=== PATIENT | male | born 1960 | race Caucasian/White ===

== ENCOUNTER 2017-08-25 10:00 | Observation (INO) | payer MEDICARE ==
[2017-08-25 10:31] LABS: #Basophils 0.1 thou/uL (0.0-0.2); #Eosinphils 0.4 thou/uL (0.0-0.7); #Lymphocytes 3.7 thou/uL (1.20-3.40); #Monocytes 1.1 thou/uL (0.11-0.59); #Neutrophils 6.5 thou/uL (1.40-6.50); %Basophils 0.7 % (0.0-1.0); %Eosinophils 3.2 % (0.0-10.0); %Lymphocytes 31.7 % (21.0-51.0); %Monocytes 8.9 % (0.0-10.0); Hematocrit 53.5 % (42.0-52.0); Red Blood Cell (RBC) Count 6.12 mill/uL (4.70-6.10); White Blood Cell (WBC) Count 11.8 thou/uL (4.8-10.8)
[2017-08-25] MEDS ORDERED: Ondansetron HCl/PF 4 MG/2 ML Vial ONE (10:44)
[2017-08-25 10:55] LABS: ALT (SGPT) 36 U/L (8-55); AST (SGOT) 30 U/L (5-34); Alkaline Phosphatase 122 U/L (40-150); Anion Gap 15 mmol/L (10-20); BUN (Urea Nitrogen) 17 mg/dL (8.4-25.7); Bilirubin, Total 0.5 mg/dL (0.2-1.2); CK (CPK) 79 U/L (30-200); Calc. Creatinine Clearance 0 mL/min (70-130); Calcium 9.6 mg/dL (7.8-10.44); Carbon Dioxide 26 mmol/L (22-29); Chloride 100 mmol/L (98-107); Estimated GFR-MDRD 52; Globulin 3.6 g/dL (2.4-3.5); Lipase 73 U/L (8-78); Protein, Total 7.4 g/dL (6.0-8.3)
[2017-08-25 10:58] LABS: Troponin I Less than 0.010 ng/mL (< 0.028)
--- NOTE | 2017-08-25 11:12 | RAD ---
SINGLE VIEW OF THE CHEST: COMPARISON: 10/14/16. HISTORY: Chest pain. FINDINGS: A single view of the chest shows a normal-size cardiothymic silhouette. The patient is status post sternotomy. There is no evidence of consolidation, mass, or pleural effusion. IMPRESSION: No evidence of acute cardiopulmonary disease. POS: [facility]
--- NOTE | 2017-08-25 12:16 | CT ---
CT THORAX UTILIZING IV CONTRAST WITH PE PROTOCOL AND 3D REFORMATTED IMAGING INDICATIONS: Chest pain. COMPARISON: None. FINDINGS: No central segmental or pulmonary embolus is evident. There is post surgical change of prior CABG. There is severe vascular calcification of the coronary arteries and thoracic aorta. No enlarged ly mph nodes are evident. There are areas of scattered subsegmental volume loss involving the lungs. No pleural effusion, air space consolidation, or pneumothorax is evident. The visualized upper abdomen reveals no definite acute abnormality. No acute osseous abnormality is evident. IMPRESSION: No central or segmental pulmonary embolus demonstrated. POS: [facility]
[2017-08-25] MEDS ORDERED: ISOVUE-370 76%-LOCM 1 ML ONE (14:16)
[2017-08-25] MEDS ORDERED: Ondansetron ODT 4 MG TAB SL PRN (14:18)
[2017-08-25] MEDS ORDERED: Ondansetron HCl/PF 4 MG/2 ML Vial IVP PRN ×2 (14:18→14:34)
[2017-08-25] MEDS ORDERED: Eucerin (Mineral Oil/Petrolatum,White) 30 gm Jar TOP PRN (14:34)
[2017-08-25] MEDS ORDERED: Sodium Chloride 0.65% Nasal 44 ML BOT EA NARE PRN (14:34)
[2017-08-25] MEDS ORDERED: Mag-Al 1200 mg/1200 mg/30 ML UDCUP PO PRN (14:34)
[2017-08-25] MEDS ORDERED: Acetaminophen 325 MG TAB PO PRN (14:34)
[2017-08-25] MEDS ORDERED: HYDROcodone/Acetaminophen 10/325 mg Tablet PO PRN (14:34)
[2017-08-25] MEDS ORDERED: hydrOXYzine 25 MG TAB PO PRN (14:34)
[2017-08-25] MEDS ORDERED: Nitroglycerin 0.4 MG TAB (25 Tab Bottle) SL PRN (14:34)
[2017-08-25] MEDS ORDERED: Diabetic Tussin 200 MG/10 ML UDCUP PO PRN (14:34)
[2017-08-25] MEDS ORDERED: Loperamide HCl 2 MG CAP PO PRN ×2 (14:34)
[2017-08-25] MEDS ORDERED: Senokot 8.6 MG TAB PO PRN (14:34)
[2017-08-25] MEDS ORDERED: Milk Of Magnesia 30 ML UDCUP PO PRN (14:34)
[2017-08-25] MEDS ORDERED: Ondansetron ODT 4 MG TAB PO PRN (14:34)
[2017-08-25 14:36] VITALS: BMI 44.4
--- NOTE | 2017-08-25 14:48 | HP ---
PRIMARY CARE PHYSICIAN: Beulah Mckoy D.O. REASON FOR ADMISSION: Chest pain. HISTORY OF PRESENT ILLNESS: A 57-year-old male who has coronary artery disease with a history of CA BG and several stents, who came to emergency room for evaluation of chest pain. Patient reports chioma t chest pain started this morning when he was in his recliner. Pain started around 07:30 a.m. and a round 08:15, patient was experiencing back pain and subsequently he noticed that pain was radiating to his jaw, so total duration of pain was about 1 hour. There was no associated nausea, vomiting, d iaphoresis. He denies any associated shortness of breath. There was no relationship of chest pain with food, respiration or activity. He was feeling pressure sensation and dull ache pain as well. He was concerned about heart attack and he decided to come to the emergency room for evaluation. Initially, the patient was planned to go to [facility], but paramedics brought h im to our emergency room. Patient's director of residential services is Dr. Ball, who is in [facility]. Patient mainly gets cardiac care from him. When I saw this patient in the emergency room, he was relatively comfortable. His pain intensity fr om initially 10/10 reduced to 6/10. He denies any fever, chills, cough, orthopnea, PND, leg swellin g, syncope, palpitation, dizziness. He denies any hemoptysis. He denies any calf tenderness. REVIEW OF SYSTEMS: The following complete review of systems was negative, unless otherwise mentione d in the HPI or below: Constitutional: Weight loss or gain, ability to conduct usual activities. Skin: Rash, itching. Eyes: Double vision, pain. ENT/Mouth: Nose bleeding, neck stiffness, pain, tenderness. Cardiovascular: Palpitations, dyspnea on exertion, orthopnea. Respiratory: Shortness of breath, wheezing, cough, hemoptysis, fever or night sweats. Gastrointestinal: Poor appetite, abdominal pain, heartburn, nausea, vomiting, constipation, or diar regino. Genitourinary: Urgency, frequency, dysuria, nocturia. Musculoskeletal: Pain, swelling. Neurologic/Psychiatric: Anxiety, depression. Allergy/Immunologic: Skin rash, bleeding tendency. Please see my HPI for pertinent positive and negative. All other review of systems reviewed and neg ative except as mentioned in the HPI. PAST MEDICAL HISTORY: Diabetes type 2, hypertension, dyslipidemia, coronary artery disease with a h istory of CABG, multiple OR required several stents, diabetic neuropathy, diabetic retinopathy, and legally blindness. PAST SURGICAL HISTORY: Bilateral knee replacement, bilateral shoulder surgery, CABG x4, cardiac cat heterization with several stents, cervical plate in neck. PAST PSYCHIATRIC HISTORY: Reviewed and negative. SOCIAL HISTORY: Patient lives at home with his daughter. He still smokes 2 packs per day. He nelson es any alcohol abuse. He denies any illicit drug abuse. FAMILY HISTORY: Hypertension, diabetes, and coronary artery disease runs among several family membe rs. ALLERGIES: The patient is allergic to PENICILLIN, SULFA, and AMITRIPTYLINE. CURRENT HOME MEDICATIONS: Aspirin 325 mg p.o. daily, lisinopril 5 mg p.o. daily, Lasix 80 mg daily, metoprolol 25 mg p.o. daily, Plavix 75 mg p.o. daily, Atarax 25 mg t.i.d. p.r.n., pramipexole 0.75 mg twice daily, Vytorin 10/40 one tablet at bedtime, Januvia 100 mg p.o. daily, gabapentin 600 mg 3 times daily, and Ambien 10 mg p.o. at bedtime. EMERGENCY ROOM COURSE: Patient is given morphine 4 mg, IV fluid 1 liter, morphine another 4 mg, and Zofran 4 mg. PHYSICAL EXAMINATION: VITAL SIGNS: On arrival, blood pressure 119/74, pulse 70, respiratory rate 20, temperature 97.9, sa turation 95% on room air, weight 133.8 kilograms. GENERAL: Patient is currently alert, awake, no obvious acute distress. HEAD: Normocephalic, atraumatic. EYES: Pupils round, reactive to light. No nystagmus. ENT: Oropharynx within normal limits. Moist mucous membranes. No oral lesions. No pharyngeal herman thema, no exudates. NECK: Supple. Range of motion is normal. No meningeal signs of irritation. LUNGS: Clear to auscultation without any rhonchi or rales. CARDIAC: S1, S2 regular. No murmur, no gallop, no rub. CHEST WALL: No point tenderness. CABG scar noted. ABDOMEN: Obesity present. Bowel sounds present. No Caicedo sign, no epigastric tenderness. No per itoneal sign, no organomegaly, no mass, no suprapubic tenderness. BACK: Examination unremarkable, no CVA tenderness. EXTREMITIES: Upper extremity passive movements of all joints are normal. Lower extremity, trace bi lateral lower extremity pitting edema noted. Good distal pulsation. SKIN: No skin rash. HEMATOLOGICAL SYSTEM: No lymphadenopathy. PSYCHIATRIC: Normal affect. NEUROLOGIC: The patient is moving all four limbs. Speech normal, no focal neurological deficit not ed. IMAGING AND SIGNIFICANT LABORATORY DATA: 1. EKG based on my review normal sinus rhythm, incomplete right bundle branch block pattern. CT an estevan negative for pulmonary embolism. Chest x-ray based on my review, no acute cardiopulmonary proce ss. 2. CBC: WBC 11.8, hemoglobin 17.2, and platelets 254. BMP: Sodium 137, potassium 4.4, chloride 1 00, carbon dioxide 26, BUN 17, creatinine 1.40, glucose 110, and calcium 9.6. 3. LFT: AST 30, ALT 36, alkaline phosphatase 122, albumin 3.8, lipase 73, CK 79, CK-MB 1.7, tropon in I less than 0.010. ASSESSMENT AND PLAN/IMPRESSION: 1. Acute and recurrent chest pain. The patient's chest pain description is atypical anginal. This patient has underlying history of coronary artery disease with coronary artery bypass grafting and several stents. At this point, current EKG is not showing any new ischemic changes. His troponin i s also negative. At this point, this patient will be kept in the hospital for close monitoring. We will do serial cardiac enzymes x3 to rule out underlying acute coronary syndrome. This patient per sonally does not want to go for stress test if not needed. He prefers all investigations to be done by Dr. Ball. Only in case of significantly abnormal troponin, then he prefers to be Cardiology i nvolved in his care. Otherwise, if cardiac enzyme is negative, then he prefers to go home tomorrow morning. We will check lipid profile for risk stratification and we will monitor on telemetry floor for any arrhythmia. 2. Coronary artery disease with a history of coronary artery bypass graft and several stents. At t his point, the patient is on optimal medical therapy at his home, who will continue aspirin 325 mg p .o. daily, Plavix 75 mg p.o. daily, metoprolol 25 mg p.o. daily, Vytorin 10/40 one tablet p.o. at be dtime. At this point, patient's blood pressure is on lower side and that is why will avoid nitrogly cerin and nitro patch. 3. Diabetes type 2. We will continue insulin as per sliding scale per protocol. We will continue patient's home medication with Januvia 100 mg p.o. daily and diabetic diet will be given. 4. Dyslipidemia. Check lipid profile tomorrow and continue Vytorin 10/40 one tablet p.o. at bedtim e. 5. Diabetic neuropathy. Continue gabapentin 600 mg three times daily. 6. Hypertension. If blood pressure permits, then we will continue lisinopril 5 mg p.o. daily, Lasi x 80 mg p.o. daily, and metoprolol as per home dosage. 7. Insomnia. We will continue Ambien 10 mg p.o. at bedtime. 8. Morbid obesity. Dietary education given, weight loss education given. 9. Diabetic retinopathy with legal blindness, we will provide supportive care. 10. Chronic kidney disease stage 3. We will monitor renal function and avoid nephrotoxic agent. 11. Deep venous thrombosis prophylaxis not needed because we are expecting discharge in 24 hours. 12. Gastrointestinal prophylaxis, Pepcid 20 mg p.o. b.i.d. CODE STATUS: Patient is FULL CODE. Patient's daughter is surrogate decision maker. Disposition plan based on clinical course.
[2017-08-25] MEDS ORDERED: Pramipexole Di-HCl 0.25 MG TAB PO SCH (15:00)
[2017-08-25] MEDS ORDERED: Gabapentin 300 MG CAP PO SCH (15:00)
[2017-08-25] MEDS ORDERED: Nicotine 21 MG PATCH TD SCH (15:00)
[2017-08-25 18:58] LABS: Troponin I Less than 0.010 ng/mL (< 0.028)
[2017-08-25] MEDS ORDERED: Acetaminophen/Codeine 30-300mg Tablet PO PRN (19:03)
[2017-08-25] MEDS ORDERED: Lisinopril 5 MG TAB PO SCH (21:00)
[2017-08-25] MEDS ORDERED: Gabapentin 400 MG CAP PO SCH (21:00)
[2017-08-25] MEDS ORDERED: Simvastatin 40 MG TAB PO SCH (21:00)
[2017-08-25] MEDS ORDERED: Famotidine 20 MG TAB PO SCH (21:00)
[2017-08-25] MEDS ORDERED: Zolpidem Tartrate 5 MG TAB PO SCH (21:00)
[2017-08-25] MEDS ORDERED: Acetaminophen/Codeine 30-300mg Tablet PO SCH (21:00)
[2017-08-25] MEDS: Pramipexole Di-HCl 0.25 MG TAB PO SCH (21:19)
[2017-08-25] MEDS: Cyclobenzaprine 10 MG TAB PO SCH (21:20)
[2017-08-25 22:22] LABS: Troponin I Less than 0.010 ng/mL (< 0.028)
[2017-08-26 02:15] LABS: Troponin I Less than 0.010 ng/mL (< 0.028)
[2017-08-26] MEDS ORDERED: Furosemide 80 MG TAB PO SCH (07:30)
[2017-08-26 08:03] VITALS: BP 113/67; TEMP 97.9
[2017-08-26] MEDS ORDERED: Alogliptin Benzoate 25 MG TABLET PO SCH ×2 (09:00)
[2017-08-26] MEDS ORDERED: Clopidogrel Bisulfate 75 MG TAB PO SCH (09:00)
[2017-08-26] MEDS ORDERED: Gabapentin 400 MG CAP PO SCH (09:00)
[2017-08-26] MEDS ORDERED: Ezetimibe 10 MG TAB PO SCH (09:00)
[2017-08-26] MEDS ORDERED: Famotidine 20 MG TAB PO SCH (09:00)
[2017-08-26] MEDS ORDERED: Metoprolol Tartrate 25 MG TAB PO SCH (09:00)
[2017-08-26] MEDS ORDERED: Aspirin 325 MG TAB PO SCH (09:00)
[2017-08-26] MEDS: Cyclobenzaprine 10 MG TAB PO SCH (09:16)
[2017-08-26] MEDS: Pramipexole Di-HCl 0.25 MG TAB PO SCH (09:17)
--- NOTE | 2017-08-26 09:21 | DIS ---
PRIMARY CARE PHYSICIAN: Dr. Beulah Vallejo DATE OF ADMISSION: 08/25/2017 DATE OF DISCHARGE: 08/26/2017 DISCHARGE DISPOSITION: Home. PRIMARY DISCHARGE DIAGNOSIS: Chest pain, ruled out acute coronary syndrome. SECONDARY DISCHARGE DIAGNOSES: Coronary artery disease with history of coronary artery bypass graft and several stents, diabetes type 2, diabetic neuropathy, diabetic retinopathy, hypertension, dysli pidemia, chronic insomnia, morbid obesity, chronic kidney disease stage 3. PRIMARY PROCEDURE/OPERATION: None. RADIOLOGICAL INVESTIGATION: Chest x-ray was normal. CT angio was negative for PE. SIGNIFICANT LABORATORY DATA: Hemoglobin 17.2, creatinine 1.4. Cardiac enzymes negative x4, LDL 39, lipase 73. LFTs normal. DISCHARGE MEDICATIONS: The patient will continue all his previous medications. Please see my HPI f or his home medication. We are not making any changes in his home medication. CONTRAINDICATIONS: None. CODE STATUS: FULL CODE. INPATIENT CONSULTANTS: None. ALLERGIES: PENICILLIN and SULFA, AMITRIPTYLINE. DISCHARGE PLAN: Post hospital, the patient will follow up with Dr. 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 Ball. HOSPITAL COURSE: A 57-year-old male who was admitted for chest pain. Please see my HPI for further details. His chest pain was atypical, but given his history of CAD and CABG, we kept this patient in the hospital for observation. We did serial cardiac enzymes and they were negative. His telemet ry remained unremarkable. He did not have any further chest pain while in hospital. In this way, w e ruled out acute coronary syndrome. This patient did not want to go for any kind of further testin g in our hospital because he is following with Dr. Ball and he prefers to be done everything at [facility] if needed, he will make appointment with him after discharge. The patient is seen and examined at bedside today. VITAL SIGNS: Currently, temperature 97.9, pulse 75, respiratory rate 16, blood pressure 113/67, alejandra ght 310 pounds. GENERAL: The patient is currently alert, awake, no acute distress. LUNGS: Clear. CARDIAC: S1, S2 regular without any murmur. ABDOMEN: Soft and benign. EXTREMITIES: No edema. NEUROLOGIC: Nonfocal examination. This patient will continue all his previous home medications.
== END 2017-08-26 10:19 | disposition home or self-care (01) ==
LOC: ERS 10:00 → 2SW 12:54
PROVIDERS: ADMIT Internal Medicine; ATTEND Internal Medicine
DX: R07.89 Other chest pain (principal); I25.10 Atherosclerotic heart disease of native coronary artery without angina pectoris; E11.40 Type 2 diabetes mellitus with diabetic neuropathy, unspecified; E11.319 Type 2 diabetes mellitus with unspecified diabetic retinopathy without macular edema; E11.22 Type 2 diabetes mellitus with diabetic chronic kidney disease; I12.9 Hypertensive chronic kidney disease with stage 1 through stage 4 chronic kidney disease, or unspecified chronic kidney disease; N18.3 Chronic kidney disease, stage 3 (moderate); E78.5 Hyperlipidemia, unspecified; F51.04 Psychophysiologic insomnia; E66.01 Morbid (severe) obesity due to excess calories; I25.2 Old myocardial infarction; F17.200 Nicotine dependence, unspecified, uncomplicated; H54.8 Legal blindness, as defined in USA; Z68.41 Body mass index [BMI] 40.0-44.9, adult; Z79.02 Long term (current) use of antithrombotics/antiplatelets; Z79.82 Long term (current) use of aspirin; Z79.84 Long term (current) use of oral hypoglycemic drugs; Z79.891 Long term (current) use of opiate analgesic; Z79.899 Other long term (current) drug therapy; Z88.2 Allergy status to sulfonamides; Z88.8 Allergy status to other drugs, medicaments and biological substances; Z96.653 Presence of artificial knee joint, bilateral; Z96.7 Presence of other bone and tendon implants; Z95.1 Presence of aortocoronary bypass graft; Z95.818 Presence of other cardiac implants and grafts
CPT/HCPCS: 71010; 71275; 80053; 80061; 82550; 82553 ×3; 83690; 84484 ×3; 85025; 93005; 94760; 96361; 96374; 96375; 96376; 99285; G0378; 36415; J2270; J2405

== ENCOUNTER 2017-10-11 13:36 | Emergency (ER) | payer MEDICARE ==
--- NOTE | 2017-10-11 15:13 | RAD ---
LEFT TIBIA AND FIBULA TWO VIEWS: 10/11/17 HISTORY: 57-year-old male with left leg pain and swelling following trauma. Total knee arthroplasty changes are noted. No acute fracture or dislocation of the tibia or fibula. No periprosthetic fracture. Minimal soft tissue swelling over the anterior aspect of the lower leg. IMPRESSION: Anterior soft tissue swelling of the lower leg. No fracture or dislocation. Status post total knee r eplacement. POS: [facility]
== END 2017-10-11 15:24 | disposition home or self-care (01) ==
LOC: ERS 13:36
DX: S80.12XA Contusion of left lower leg, initial encounter (principal); E11.9 Type 2 diabetes mellitus without complications; F17.210 Nicotine dependence, cigarettes, uncomplicated; Z79.82 Long term (current) use of aspirin; Z79.891 Long term (current) use of opiate analgesic; Z79.84 Long term (current) use of oral hypoglycemic drugs; Z79.899 Other long term (current) drug therapy; W22.8XXA Striking against or struck by other objects, initial encounter
CPT/HCPCS: 99406

== ENCOUNTER 2018-04-16 03:39 | Emergency (ER) | payer MEDICARE ==
[2018-04-16] MEDS ORDERED: Ketorolac Tromethamine 60 MG/2 ML VIAL ONE (04:17)
[2018-04-16] MEDS ORDERED: traMADol HCl 50 MG TAB ONE (05:55)
--- NOTE | 2018-04-16 07:58 | RAD ---
TWO VIEWS OF THE LEFT HIP: COMPARISON: None. HISTORY: Left hip pain. FINDINGS: Two views left hip show no evidence of acute fracture or dislocation. Mild soft tissue swelling is s een. No degenerative changes are present. IMPRESSION: No evidence of acute osseous abnormality. POS: [facility]
--- NOTE | 2018-04-16 07:59 | RAD ---
SINGLE VIEW OF THE CHEST: COMPARISON: 12/08/13. HISTORY: Left hp pain. FINDINGS: A single view of the pelvis shows no evidence of acute fracture or dislocation. No degenerative jung ge is seen in either hip. IMPRESSION: Unremarkable exam. POS: [facility]
--- NOTE | 2018-04-16 08:50 | CT ---
CT OF THE LEFT HIP WITHOUT CONTRAST: INDICATION: Left hip pain status post fall. FINDINGS: No acute fracture or subluxation is evident. There is mild degenerative arthrosis of the left hi. T he suggested lucency involving the left acetabulum is likely related to bone spurs. No definite frac ture is evident. There are vascular calcifications involving the left inguinal region. There is a f at-containing left inguinal hernia. IMPRESSION: No discrete fracture is seen by CT. There is mild degenerative arthrosis involving the left hip. Th e reported lucency involving the left acetabulum is related to an overhanging bone spur off of the ac etabular lip. No acute fracture is evident. If there remains concern for an occult left hip fractur e, MRI of the left hip may be helpful. POS: [facility]
== END 2018-04-16 06:58 | disposition home or self-care (01) ==
LOC: ERS 03:39
DX: S32.9XXA Fracture of unspecified parts of lumbosacral spine and pelvis, initial encounter for closed fracture (principal); I50.9 Heart failure, unspecified; E11.40 Type 2 diabetes mellitus with diabetic neuropathy, unspecified; F32.9 Major depressive disorder, single episode, unspecified; F17.210 Nicotine dependence, cigarettes, uncomplicated; Z79.82 Long term (current) use of aspirin; Z79.899 Other long term (current) drug therapy; W17.89XA Other fall from one level to another, initial encounter
CPT/HCPCS: 72170; 96372; J1885

== ENCOUNTER 2018-10-14 22:47 | Emergency (ER) | payer MEDICARE ==
--- NOTE | 2018-10-14 23:25 | RAD ---
AP VIEW CHEST: 10/14/18 HISTORY: Dyspnea. AP view chest is obtained. Comparison made to previous exam from 08/25/17. AP view chest demonstrates ACDF plate and screws in place. Sternotomy wires seen. Mild cardiomegaly s een. Pulmonary vascular congestion is seen. No evidence of effusions, pneumonia or pneumothorax seen. IMPRESSION: Some mild cardiomegaly and pulmonary vascular congestion otherwise unremarkable AP view chest. POS: [facility]
[2018-10-14 23:37] LABS: #Eosinphils 0.2 thou/uL (0.0-0.7); #Lymphocytes 1.5 thou/uL (1.20-3.40); #Monocytes 0.9 thou/uL (0.11-0.59); #Neutrophils 6.9 thou/uL (1.40-6.50); %Basophils 0.2 % (0.0-1.0); %Eosinophils 2.4 % (0.0-10.0); %Monocytes 8.9 % (0.0-10.0); %Neutrophils 72.5 % (42.0-75.0); Hemoglobin 18.8 g/dL (14.0-18.0); Mean Corpuscular HGB CONC 32.2 g/dL (32.0-36.0); Mean Corpuscular Hemoglobin 30.5 pg (27.0-31.0); Mean Corpuscular Volume 94.6 fL (78.0-98.0); Mean Platelet Volume 8.6 fL (7.4-10.4); Platelet Count 188 thou/uL (130-400); Red Blood Cell (RBC) Count 6.17 mill/uL (4.70-6.10); White Blood Cell (WBC) Count 9.5 thou/uL (4.8-10.8)
[2018-10-14 23:58] LABS: ALT (SGPT) 22 U/L (8-55); AST (SGOT) 24 U/L (5-34); Albumin 3.9 g/dL (3.5-5.0); Alkaline Phosphatase 101 U/L (40-150); Anion Gap 13 mmol/L (10-20); BUN (Urea Nitrogen) 15 mg/dL (8.4-25.7); Bilirubin, Total 0.6 mg/dL (0.2-1.2); CK (CPK) 233 U/L (30-200); Calc. Creatinine Clearance 0 mL/min (70-130); Calcium 8.8 mg/dL (7.8-10.44); Carbon Dioxide 26 mmol/L (22-29); Chloride 102 mmol/L (98-107); Estimated GFR-MDRD 51; Globulin 3.2 g/dL (2.4-3.5); Glucose 123 mg/dL (70-105); Protein, Total 7.1 g/dL (6.0-8.3); Sodium 137 mmol/L (136-145)
[2018-10-15 00:14] LABS: CKMB 2.2 ng/mL (0-6.6); Troponin I Less than 0.010 ng/mL (< 0.028)
[2018-10-15] MEDS ORDERED: predniSONE 20 MG TAB ONE (00:18)
[2018-10-15] MEDS ORDERED: Albuterol Sulfate 2.5 mg/0.5 ml Neb ONE (00:25)
--- NOTE | 2018-10-16 17:50 | EKG ---
Test Reason : CP Blood Pressure : / mmHG Vent. Rate : 106 BPM Atrial Rate : 106 BPM P-R Int : 174 ms QRS Dur : 094 ms QT Int : 328 ms P-R-T Axes : 053 -13 089 degrees QTc Int : 435 ms Sinus tachycardia Possible Left atrial enlargement Low voltage QRS Incomplete right bundle branch block Inferior infarct , age undetermined Abnormal ECG Confirmed by WAN BATES ([id number]), mapping editor BRUNO NESBITT ([id number]) on 10/16/2018 5:49:13 PM Referred By: Confirmed By:WAN BATES
== END 2018-10-15 00:55 | disposition home or self-care (01) ==
LOC: ERS 22:47
DX: J44.1 Chronic obstructive pulmonary disease with (acute) exacerbation (principal); I50.9 Heart failure, unspecified; E11.9 Type 2 diabetes mellitus without complications; I25.2 Old myocardial infarction; F17.210 Nicotine dependence, cigarettes, uncomplicated; Z79.899 Other long term (current) drug therapy; Z79.82 Long term (current) use of aspirin
CPT/HCPCS: 36415; 71045; 80053; 82550; 82553; 83880; 84484; 85025; 93005; 94640; J7506; J7611; J7620

== ENCOUNTER 2018-12-17 14:06 | Emergency (ER) | payer MEDICARE ==
[2018-12-17 15:51] LABS: #Basophils 0.1 thou/uL (0.0-0.2); #Eosinphils 0.3 thou/uL (0.0-0.7); #Lymphocytes 1.8 thou/uL (1.20-3.40); #Monocytes 0.7 thou/uL (0.11-0.59); #Neutrophils 6.6 thou/uL (1.40-6.50); %Basophils 0.7 % (0.0-1.0); %Eosinophils 3.1 % (0.0-10.0); %Lymphocytes 19.1 % (21.0-51.0); %Monocytes 6.9 % (0.0-10.0); %Neutrophils 70.2 % (42.0-75.0); Hemoglobin 19.1 g/dL (14.0-18.0); Mean Corpuscular Hemoglobin 29.9 pg (27.0-31.0); Mean Corpuscular Volume 93.6 fL (78.0-98.0); Mean Platelet Volume 8.2 fL (7.4-10.4); Platelet Count 221 thou/uL (130-400); RBC Distribution Width 14.2 % (11.5-14.5); Red Blood Cell (RBC) Count 6.38 mill/uL (4.70-6.10); White Blood Cell (WBC) Count 9.4 thou/uL (4.8-10.8)
[2018-12-17] MEDS ORDERED: Meclizine HCl 25 MG TAB ONE (16:01)
[2018-12-17 16:17] LABS: ALT (SGPT) 25 U/L (8-55); AST (SGOT) 27 U/L (5-34); Albumin 3.8 g/dL (3.5-5.0); Alkaline Phosphatase 108 U/L (40-150); Anion Gap 13 mmol/L (10-20); BUN (Urea Nitrogen) 13 mg/dL (8.4-25.7); Bilirubin, Total 0.7 mg/dL (0.2-1.2); Calc. Creatinine Clearance 0 mL/min (70-130); Calcium 9.4 mg/dL (7.8-10.44); Carbon Dioxide 23 mmol/L (22-29); Chloride 104 mmol/L (98-107); Estimated GFR-MDRD 58; Globulin 3.4 g/dL (2.4-3.5); Glucose 160 mg/dL (70-105); Potassium 4.4 mmol/L (3.5-5.1); Protein, Total 7.2 g/dL (6.0-8.3); Sodium 136 mmol/L (136-145)
--- NOTE | 2018-12-17 16:23 | CT ---
CT HEAD NONCONTRAST: History: Altered mental status. Dizziness. Comparison: 04-24-11 FINDINGS: There is no evidence of an acute intracranial hemorrhage or infarct. Ventricles appear normal in size , shape, and position. There is no mass effect or shift of midline structures. Visualized paranasal s inuses remain well aerated. IMPRESSION: No acute intracranial abnormalities are demonstrated. POS: [facility]
[2018-12-17] MEDS ORDERED: Diazepam 5 MG TAB ONE (16:28)
[2018-12-17 17:13] LABS: Bilirubin Negative (Negative); Blood, Urine Trace (Negative); Clarity CLEAR (Clear); Glucose, Urine (Dipstick) Negative (Negative); Leukocyte Negative (Negative); Nitrite Negative (Negative); Protein, Urine (Dipstick) Negative (Neg-Trace); Specific Gravity, Urine 1.008 (1.002-1.036); Urobilinogen 0.2 mg/dL (0.2-1.0); pH, Urine 6.5 (5.0-9.0)
[2018-12-17 17:18] LABS: Bacteria/HPF None Seen HPF (None Seen); Hyaline Casts/LPF 0-3 HYALINE CAST LPF (0-3 Hyaline); Pathc Cast-AUWi Flag 0.14 (0-2.49); Squamous Epithelial None Seen HPF (0-3); WBC/HPF None Seen HPF (0-3)
== END 2018-12-17 19:16 | disposition home or self-care (01) ==
LOC: ERS 14:06
DX: R42 Dizziness and giddiness (principal); I25.2 Old myocardial infarction; E11.40 Type 2 diabetes mellitus with diabetic neuropathy, unspecified; I11.0 Hypertensive heart disease with heart failure; I50.9 Heart failure, unspecified; Z86.73 Personal history of transient ischemic attack (TIA), and cerebral infarction without residual deficits; F17.210 Nicotine dependence, cigarettes, uncomplicated; F32.9 Major depressive disorder, single episode, unspecified; Z79.899 Other long term (current) drug therapy; Z79.82 Long term (current) use of aspirin
CPT/HCPCS: 36415; 70450; 80053; 81003; 81015; 84484; 85025; 96360

== ENCOUNTER 2018-12-18 19:07 | Observation (INO) | payer MEDICARE ==
[2018-12-18 19:51] LABS: #Basophils 0.1 thou/uL (0.0-0.2); #Eosinphils 0.5 thou/uL (0.0-0.7); #Lymphocytes 2.3 thou/uL (1.20-3.40); #Monocytes 0.9 thou/uL (0.11-0.59); #Neutrophils 6.2 thou/uL (1.40-6.50); %Basophils 0.7 % (0.0-1.0); %Eosinophils 4.7 % (0.0-10.0); %Lymphocytes 23.5 % (21.0-51.0); %Monocytes 8.6 % (0.0-10.0); %Neutrophils 62.6 % (42.0-75.0); Hemoglobin 19.5 g/dL (14.0-18.0); Mean Corpuscular HGB CONC 32.1 g/dL (32.0-36.0); Mean Corpuscular Hemoglobin 30.5 pg (27.0-31.0); Mean Corpuscular Volume 95.1 fL (78.0-98.0); Mean Platelet Volume 8.6 fL (7.4-10.4); Platelet Count 228 thou/uL (130-400); RBC Distribution Width 14.4 % (11.5-14.5); Red Blood Cell (RBC) Count 6.41 mill/uL (4.70-6.10)
[2018-12-18 20:11] LABS: ALT (SGPT) 24 U/L (8-55); AST (SGOT) 30 U/L (5-34); Alkaline Phosphatase 107 U/L (40-150); Anion Gap 16 mmol/L (10-20); BUN (Urea Nitrogen) 13 mg/dL (8.4-25.7); Bilirubin, Total 0.5 mg/dL (0.2-1.2); CK (CPK) 172 U/L (30-200); Calc. Creatinine Clearance 0 mL/min (70-130); Calcium 9.2 mg/dL (7.8-10.44); Carbon Dioxide 23 mmol/L (22-29); Chloride 103 mmol/L (98-107); Estimated GFR-MDRD 56; Globulin 3.4 g/dL (2.4-3.5); Glucose 105 mg/dL (70-105); Potassium 4.2 mmol/L (3.5-5.1); Protein, Total 7.4 g/dL (6.0-8.3); Sodium 138 mmol/L (136-145)
[2018-12-18] MEDS ORDERED: Ketorolac Tromethamine 30 MG/ML VIAL ONE (20:32)
--- NOTE | 2018-12-18 20:46 | RAD ---
PORTABLE AP CHEST X-RAY 12/18/18 HISTORY: Shortness of breath and chest pain. COMPARISON: 10/14/18 FINDINGS: Postsurgical changes related to anterior cervical fusion are noted. Median sternotomy wires are again noted with fractures of the most upper sternal wires unchanged from prior study. The cardiac silhoue tte is magnified by projection but stable in size from the prior study. The pulmonary vasculature is within normal limits. There is mild atelectasis at the left lung base. The lungs are otherwise clear. [place] screws overlie the bilateral humeral heads. No other interval change. IMPRESSION: No acute cardiopulmonary process. POS: [facility]
[2018-12-18] MEDS ORDERED: Dextrose 50% Abboject 50 ML SYRINGE SLOW IVP PRN (21:45)
[2018-12-18] MEDS ORDERED: Insulin Regular 300 UNITS/3 ML VIAL SC PRN (21:45)
[2018-12-18] MEDS ORDERED: Dextrose 5% in Water 1,000 ML IV PRN (21:45)
[2018-12-18] MEDS ORDERED: Ondansetron PF 4 MG/2 ML Vial IVP PRN (21:46)
[2018-12-18] MEDS ORDERED: Acetaminophen 325 MG TAB PO PRN (21:46)
[2018-12-18 23:10] LABS: Troponin I Less than 0.010 ng/mL (< 0.028)
--- NOTE | 2018-12-18 23:27 | HP ---
PRIMARY CARE DOCTOR: Beulah Mckoy DO CODE STATUS: Full code. TIME OF EVALUATION: 09:45 p.m. CHIEF COMPLAINT: Chest pain. HISTORY OF PRESENT ILLNESS: This is a 58-year-old male patient with past medical history of morbid obesity, diabetes, known history of coronary artery disease, status post CABG a few years ago, came to the hospital with sudden onset severe chest pain on the left side radiating to the back with no clear triggers, or alleviating factors. The pain relieved with medications given in the ER. The patient was having severe 9/10 associated with nausea. REVIEW OF SYSTEMS: CONSTITUTIONAL: No fever, chills, or generalized weakness. RESPIRATORY: No cough or sputum production. Has shortness of breath. CARDIOVASCULAR: The patient has chest pain. No palpitation. GASTROINTESTINAL: The patient has associated nausea. No vomiting, diarrhea, or abdominal pain. BUILDING CUSTODIAL SUPERVISOR: No dizziness, headache, or feeling lightheaded. GENITOURINARY: No burning on urination. EXTREMITIES: No leg swelling. All other systems were reviewed and negative except for the findings mentioned above. PAST MEDICAL HISTORY: As mentioned in the HPI. Also, he has hypertension, CHF, and history of TIA. PAST SURGICAL HISTORY: Appendectomy, CABG x4, stent x8, cervical surgery. PSYCHIATRIC HISTORY: No previous psychiatric history except for depression. SOCIAL HISTORY: No alcohol. No drugs. The patient smoked on a daily basis, 2 packs per day. Lives at home. FAMILY HISTORY: Mother has heart problems. KNOWN ALLERGIES: Amitriptyline, penicillin and sulfa. REPORTED MEDICATIONS: 1. Aspirin. 2. Lisinopril. 3. Lasix. 4. Metoprolol. 5. Plavix. 6. Pramipexole. 7. Vytorin. 8. Januvia. 9. Gabapentin. 10. Zolpidem. 11. Flexeril. 12. Ropinirole. 13. Prednisone. 14. Zithromax. 15. Albuterol. VITAL SIGNS ON PRESENTATION: Blood pressure 141/93 with heart rate 84, respiratory rate was 16, temperature 98.2, O2 saturation was 95% on room air. PHYSICAL EXAMINATION: GENERAL APPEARANCE: The patient is alert, oriented, not in any acute distress. Morbidly obese. Pain is relieved. HEENT: Eyes, normal conjunctivae. Moist oral mucosa. Anicteric. No JVD. RESPIRATORY: Bilateral air entry. No rales. No wheezes. Symmetric expansion. CARDIOVASCULAR: Normal rate. Regular rhythm. No murmurs. No gallops. No edema. ABDOMEN: Soft. The patient is morbidly obese. Normal bowel sounds. MUSCULOSKELETAL: Baseline range of motion and strength. No tenderness. SKIN: Warm and intact. No pallor. No rash. No redness. EXTREMITIES: Peripheral pulses are present. Capillary refill seems to be intact. NEURO: The patient has peripheral neuropathy. No evidence of any new focal weakness. Baseline speech. Cranial nerves seems to be intact. PSYCHIATRIC: The patient is in good mood. No anxiety. Oriented, optimal judgment. DIAGNOSTIC DATA: EKG was disclosed with ER performing physician and showed no acute ischemic changes. The radiology chest x-ray was reviewed. The patient had no acute cardiopulmonary process. LABORATORY DATA: Labs were reviewed. The patient has white count 10.0, hemoglobin 19.5, hematocrit 60, platelet count 228. Chemistry, sodium 138, potassium 4.2, chloride 103, carbon dioxide 23, anion gap 16, BUN 13, creatinine 1.31. Previous creatinine was 1.28. GFR 56, glucose 105, calcium 9.2, total bilirubin 0.5, AST 30, ALT 24, alkaline phosphatase 107, creatine kinase 172, troponin was negative. LFTs were negative. ASSESSMENT AND PLAN: The patient will be placed in the hospital with following medical problems. 1. Chest pain, rule out acute coronary syndrome. The patient has strong coronary history. We will do a stress test in the morning. If initial cardio workup is negative, may need cardiology evaluation given high pretest probability. We will reconcile home medications. 2. Morbid obesity, advised to lose weight. 3. History of congestive heart failure, we will reconcile home medications, adjust treatment as needed, seems to be compensated at this time. 4. History of hypertension, is uncontrolled, reconcile home medications, we will adjust treatment as needed. 5. History of diabetes, seems to be controlled. We will place the patient on sliding scale. 6. Hyperlipidemia. We will reconcile home medications, low-cholesterol diet is advised. Continue simvastatin. 7. Deep venous thrombosis prophylaxis. Job ID: [id number]
[2018-12-19 00:18] VITALS: BMI 48.6
[2018-12-19] MEDS ORDERED: Zolpidem Tartrate 5 MG TAB PO SCH ×2 (01:15→21:00)
[2018-12-19] MEDS ORDERED: Lisinopril 5 MG TAB PO SCH ×2 (01:15→21:00)
[2018-12-19] MEDS ORDERED: Gabapentin 400 MG CAP PO SCH ×2 (01:15→21:00)
[2018-12-19 04:24] LABS: #Basophils 0.1 thou/uL (0.0-0.2); #Eosinphils 0.4 thou/uL (0.0-0.7); #Lymphocytes 2.4 thou/uL (1.20-3.40); #Monocytes 0.7 thou/uL (0.11-0.59); %Basophils 1.4 % (0.0-1.0); %Eosinophils 4.3 % (0.0-10.0); %Lymphocytes 27.8 % (21.0-51.0); %Monocytes 8.2 % (0.0-10.0); %Neutrophils 58.4 % (42.0-75.0); Hemoglobin 18.7 g/dL (14.0-18.0); Mean Corpuscular HGB CONC 32.9 g/dL (32.0-36.0); Mean Corpuscular Hemoglobin 31.7 pg (27.0-31.0); Mean Corpuscular Volume 96.3 fL (78.0-98.0); Mean Platelet Volume 8.6 fL (7.4-10.4); Platelet Count 186 thou/uL (130-400); RBC Distribution Width 14.4 % (11.5-14.5); Red Blood Cell (RBC) Count 5.89 mill/uL (4.70-6.10); White Blood Cell (WBC) Count 8.6 thou/uL (4.8-10.8)
[2018-12-19 04:43] LABS: Anion Gap 15 mmol/L (10-20); BUN (Urea Nitrogen) 16 mg/dL (8.4-25.7); Calc. Creatinine Clearance 120 mL/min (70-130); Carbon Dioxide 20 mmol/L (22-29); Chloride 105 mmol/L (98-107); Estimated GFR-MDRD 50; Glucose 198 mg/dL (70-105); Potassium 4.3 mmol/L (3.5-5.1); Sodium 136 mmol/L (136-145)
[2018-12-19] MEDS ORDERED: Aspirin 325 MG TAB PO SCH (08:00)
[2018-12-19] MEDS ORDERED: Clopidogrel Bisulfate 75 MG TAB PO SCH (09:00)
[2018-12-19] MEDS ORDERED: Furosemide 80 MG TAB PO SCH (09:00)
[2018-12-19] MEDS ORDERED: Metoprolol Tartrate 25 MG TAB PO SCH (09:00)
[2018-12-19] MEDS ORDERED: Pramipexole Di-HCl 0.25 MG TAB PO SCH (09:00)
[2018-12-19] MEDS ORDERED: Cyclobenzaprine 10 MG TAB PO SCH (09:00)
[2018-12-19] MEDS ORDERED: Acetaminophen/Codeine 30-300mg Tablet PO SCH (09:00)
[2018-12-19] MEDS ORDERED: Famotidine 20 MG TAB PO SCH (09:00)
[2018-12-19] MEDS ORDERED: Enoxaparin Sodium 40 MG/0.4 ML SYRINGE SC SCH (09:00)
[2018-12-19] MEDS ORDERED: Regadenoson 0.4 MG/5 ML SYRINGE ONE (09:24)
[2018-12-19 12:50] VITALS: BP 155/82; TEMP 97.7
[2018-12-19] MEDS ORDERED: Ezetimibe 10 MG TAB PO SCH (21:00)
[2018-12-19] MEDS ORDERED: Simvastatin 40 MG TAB PO SCH (21:00)
[2018-12-19] MEDS ORDERED: Non-Formulary Item 1 EACH (Ezetimibe/Simvastatin [Vytorin] 1 TABLET) PO SCH (21:00)
--- NOTE | 2018-12-20 12:37 | NM ---
MYOCARDIAL PERFUSION SCAN: Date: 12/20/18 PROVIDED CLINICAL HISTORY: Chest pain. FINDINGS: Technetium-99m labeled sestamibi IV 27 mCi was given after stress. There are large areas of severely reduced radiotracer activity involving the left ventricular myocardium. The patient is not returning for rest imaging. Gated data demonstrates global hypokinesis with calculated LVEF of 43%. IMPRESSION: 1. Indeterminate myocardial perfusion scan with regard to ischemia. Large areas of radiotracer defic iency involve the left ventricular myocardium, which could reflect ischemia, soft tissue attenuation, and/or scar. 2. Global hypokinesis with diminished LVEF. POS: [facility]
--- NOTE | 2018-12-22 07:31 | DIS ---
DATE OF ADMISSION: 12/18/2018 DATE OF DISCHARGE: 12/19/2018 HOSPITAL COURSE: Mr. Miller is a 58-year-old man with a background of morbid obesity, diabetes, and known coronary artery disease, who underwent a CABG in the past. He presented with left-sided chest pain radiating to the back, 9/10 in severity and associated with nausea. He was admitted for ACS rule out. The patient was underwent laboratory studies, which demonstrated negative serial troponins. He was scheduled to undergo a stress test, which was done on 12/19/2018. Immediately after returning from the stress test, the patient stated that he wanted to go home. He states that Dr. Lyon was in the room while he was undergoing the active part of his stress test and allegedly was told by Dr. Lyon that he did not have a heart problem. Therefore, he is requesting to be discharged immediately. While speaking with him, he picked up the phone to call his ride home. The patient did state to me that he saw no reason why he should stay. However, he was advised by the cath tech that he might require the resting phase of his stress test the following day. The patient insisted on going home and states it was due to not feeling comfortable and wanting to eat a regular diet rather than a heart healthy diet that he has been offered here. The patient states he is concerned that his glucose will be out of control as he is used to drinking Cokes and chocolate milk, which he drinks often. The patient also states that there is no air conditioning, which makes him uncomfortable. For all those reasons in addition to being told, per the patient, multiple times, he did not have a heart problem, he insists on leaving home as AMA. LABORATORY STUDIES: On day of discharge, laboratory studies were the following: White blood count 8.6, hemoglobin 18.7, hematocrit 56.7, and platelets 186. Sodium 136, potassium 4.3, BUN 16, and creatinine 1.46. EGFR 50 (stable). Glucose 198. Calcium 9.0. IMAGING DATA: 1. CT head showed no acute intracranial abnormalities. Done due to altered mental status/dizziness, but the patient denies experiencing this. 2. Chest x-ray, 12/18/2018. No acute cardiopulmonary process. 3. Stress test. Report not yet available at time of the patient decided to leave AMA. FOLLOWUP: The patient states he is a patient of Dr. Rosales, but plans to follow up with Dr. Lyon as an outpatient. Dr. Barajas made aware of the patient deciding to leave against medical advice. He was instructed to return if any recurrent or worsening symptoms. The patient stated he knew more about . Job ID: [id number] MTDD
--- NOTE | 2018-12-26 23:03 | EKG ---
Test Reason : Blood Pressure : / mmHG Vent. Rate : 084 BPM Atrial Rate : 084 BPM P-R Int : 180 ms QRS Dur : 098 ms QT Int : 384 ms P-R-T Axes : 054 -25 088 degrees QTc Int : 453 ms Normal sinus rhythm Low voltage QRS Inferior infarct , age undetermined Cannot rule out Anterior infarct , age undetermined Abnormal ECG Confirmed by FLORESITA LU, DIYA ([id number]), acquisitions editor BRUNO NESBITT ([id number]) on 12/26/2018 11:02:51 PM Referred By: Confirmed By:DIYA CANAS MD
--- NOTE | 2018-12-26 23:03 | EKG ---
Test Reason : CP Blood Pressure : / mmHG Vent. Rate : 078 BPM Atrial Rate : 078 BPM P-R Int : 184 ms QRS Dur : 098 ms QT Int : 404 ms P-R-T Axes : 046 -35 091 degrees QTc Int : 460 ms Normal sinus rhythm Possible Left atrial enlargement Left axis deviation Low voltage QRS Incomplete right bundle branch block Inferior infarct , age undetermined Cannot rule out Anterior infarct , age undetermined Abnormal ECG Confirmed by FLORESITA LU, DIYA ([id number]), assignment desk editor BRUNO NESBITT ([id number]) on 12/26/2018 11:02:53 PM Referred By: Confirmed By:DIYA CANAS MD
== END 2018-12-19 16:28 | disposition left against medical advice (07) ==
LOC: ERS 19:07 → 2SW 21:46
PROVIDERS: ADMIT Hospitalist; ATTEND Hospitalist
DX: R07.9 Chest pain, unspecified (principal); E11.9 Type 2 diabetes mellitus without complications; I11.0 Hypertensive heart disease with heart failure; I50.20 Unspecified systolic (congestive) heart failure; I25.10 Atherosclerotic heart disease of native coronary artery without angina pectoris; F17.210 Nicotine dependence, cigarettes, uncomplicated; E66.01 Morbid (severe) obesity due to excess calories; Z68.42 Body mass index [BMI] 45.0-49.9, adult; Z53.21 Procedure and treatment not carried out due to patient leaving prior to being seen by health care provider; Z79.02 Long term (current) use of antithrombotics/antiplatelets; Z79.4 Long term (current) use of insulin; Z79.82 Long term (current) use of aspirin; Z79.899 Other long term (current) drug therapy; Z88.0 Allergy status to penicillin; Z88.2 Allergy status to sulfonamides; Z88.8 Allergy status to other drugs, medicaments and biological substances; Z95.1 Presence of aortocoronary bypass graft; Z95.5 Presence of coronary angioplasty implant and graft; Z98.1 Arthrodesis status; Z98.890 Other specified postprocedural states
CPT/HCPCS: 71045; 78451; 80048; 80053; 82550; 82962 ×2; 84484 ×2; 85025 ×2; 93005; 93017; 96374; 99285; A9500; G0378 ×2; 36415; 36416; J1650; J1815; J1885; J2785

== ENCOUNTER 2019-05-23 19:55 | Observation (INO) | payer MEDICARE ==
[~2019-05-23 19:55] MED LIST: ISOVUE-370 76%-LOCM 1 ML ONE
--- NOTE | 2019-05-23 20:06 | CT ---
CT Brain WO Con History: Difficulty swallowing. Comparison: CT brain on December 17, 2018 Findings: No acute hemorrhage or infarct. No midline shift or mass effect. Ventricular size and extra -axial CSF spaces are normal. Chronic left maxillary osteitis. Calvarium is intact. Mastoids are clear. Impression: No acute hemorrhage or infarct. Code CR Dr. James
[2019-05-23] MEDS ORDERED: Metoclopramide HCl 10 MG/2 ML VIAL ONE (20:20)
[2019-05-23] MEDS ORDERED: Ketorolac Tromethamine 30 MG/ML VIAL ONE (20:20)
[2019-05-23] MEDS ORDERED: Fentanyl 100 MCG/2 ML VIAL ONE (20:20)
[2019-05-23] MEDS ORDERED: Dexamethasone 10 MG/ML VIAL ONE (20:20)
--- NOTE | 2019-05-23 20:23 | CT ---
CTA Angio Head W WO Con CTA neck with contrast History: Level 1 stroke. Comparison: None. Findings: CT angiogram of the head and neck performed after the intravenous administration of contras t. 3-D rendering provided. Lung apices are clear. ACDF hardware from C5-C7. No acute osseous abnormality. Thyroid is unremarkable. Origins of the vertebral arteries are poorly visualized due to habitus. Vert ebral arteries are codominant. The common carotid arteries are patent. Per NASCET criteria no hemodynamically significant stenosis o f the internal carotid arteries. Basilar artery is patent. [place] is patent without stenosis, thrombosis, or aneurysm format ion. Impression: 1. Patent [place] without stenosis, thrombosis, or aneurysm formation. 2. Patent vertebral arteries. 3. Per NASCET criteria no hemodynamically significant stenosis of the internal carotid arteries. Code CR: Dr. James
--- NOTE | 2019-05-23 20:24 | RAD ---
XR Chest 1 View Portable History: Altered mental status Comparison: Radiograph December 18, 2018 Findings: Heart size is enlarged. Multiple midline sternotomy wires. No pneumothorax. No effusion. Impression: Moderate cardiomegaly.
[2019-05-23 20:30] LABS: #Eosinphils 0.3 thou/uL (0.0-0.7); #Lymphocytes 2.1 thou/uL (1.20-3.40); #Monocytes 0.9 thou/uL (0.11-0.59); #Neutrophils 6.1 thou/uL (1.40-6.50); %Basophils 0.5 % (0.0-1.0); %Eosinophils 3.7 % (0.0-10.0); %Lymphocytes 22.3 % (21.0-51.0); %Monocytes 8.9 % (0.0-10.0); %Neutrophils 64.6 % (42.0-75.0); Hemoglobin 18.8 g/dL (14.0-18.0); Mean Corpuscular HGB CONC 32.4 g/dL (32.0-36.0); Mean Corpuscular Hemoglobin 30.6 pg (27.0-31.0); Mean Corpuscular Volume 94.6 fL (78.0-98.0); Mean Platelet Volume 8.9 fL (7.4-10.4); Platelet Count 219 thou/uL (130-400); RBC Distribution Width 14.5 % (11.5-14.5); Red Blood Cell (RBC) Count 6.14 mill/uL (4.70-6.10); White Blood Cell (WBC) Count 9.5 thou/uL (4.8-10.8)
[2019-05-23 20:37] LABS: Prothrombin Time 12.9 SEC (12.0-14.7)
[2019-05-23 20:38] LABS: PTT 28.1 SEC (22.9-36.1)
[2019-05-23 21:00] LABS: ALT (SGPT) 24 U/L (8-55); AST (SGOT) 28 U/L (5-34); Albumin 3.8 g/dL (3.5-5.0); Alkaline Phosphatase 105 U/L (40-150); Anion Gap 18 mmol/L (10-20); BUN (Urea Nitrogen) 14 mg/dL (8.4-25.7); Bilirubin, Total 0.5 mg/dL (0.2-1.2); CK (CPK) 192 U/L (30-200); Calc. Creatinine Clearance 0 mL/min (70-130); Calcium 8.9 mg/dL (7.8-10.44); Carbon Dioxide 25 mmol/L (22-29); Chloride 97 mmol/L (98-107); Estimated GFR-MDRD 51; Globulin 3.1 g/dL (2.4-3.5); Glucose 197 mg/dL (70-105); Lipase 99 U/L (8-78); Potassium 4.6 mmol/L (3.5-5.1); Protein, Total 6.9 g/dL (6.0-8.3); Sodium 135 mmol/L (136-145)
[2019-05-23] MEDS ORDERED: Aspirin Chewable 81 MG TAB ONE (22:11)
[2019-05-23] MEDS ORDERED: Acetaminophen 650 MG Suppository PR PRN (22:22)
[2019-05-23] MEDS ORDERED: Ondansetron ODT 4 MG TAB PO PRN (22:22)
[2019-05-23] MEDS ORDERED: Acetaminophen 325 MG TAB PO PRN (22:22)
[2019-05-23] MEDS ORDERED: Ondansetron PF 4 MG/2 ML Vial IVP PRN (22:22)
[2019-05-23] MEDS ORDERED: Dextrose 5% in Water 1,000 ML IV PRN (22:26)
[2019-05-23] MEDS ORDERED: Dextrose 50% Abboject 50 ML SYRINGE SLOW IVP PRN (22:26)
[2019-05-23 23:29] VITALS: BMI 50.2
[2019-05-23] MEDS ORDERED: Zolpidem Tartrate 5 MG TAB PO SCH (23:30)
[2019-05-23 23:46] LABS: Troponin I 0.015 ng/mL (< 0.028)
--- NOTE | 2019-05-24 00:27 | HP ---
CODE STATUS: Full code. TIME OF EVALUATION: 10:10 p.m. CHIEF COMPLAINT: Weakness of the right upper extremity. HISTORY OF PRESENT ILLNESS: A 59-year-old male patient with past medical history of diabetes, congestive heart failure, coronary artery disease, blind, hypertension, previous TIAs, came to the hospital after having an episode of right eye drop and right arm weakness. The symptoms started around 6:00 p.m. with no clear triggers, no alleviating factors. The patient remembered having the symptoms when all of a sudden just been transferred to our hospital. The symptoms have disappeared by the time of my examination. The symptoms started suddenly and lasted for 1 hour and then improved. They improved by itself. Symptoms were reported as moderate. REVIEW OF SYSTEMS: CONSTITUTIONAL: No fever, chills, or generalized weakness. RESPIRATORY: No cough, sputum production, shortness of breath. CARDIOVASCULAR: No chest pain, palpitation. GASTROINTESTINAL: No nausea. No vomiting, diarrhea, or abdominal pain. OSTEOLOGIST: The patient has some dizziness, no headache or feeling lightheaded. The patient had right arm weakness and right-sided facial droop. GENITOURINARY: No burning with urination. EXTREMITIES: No leg swelling. All other systems were reviewed and negative except for the findings mentioned above. PAST MEDICAL HISTORY: As mentioned in HPI. FAMILY HISTORY: Reviewed, noncontributory to current presentation. PAST SURGICAL HISTORY: The patient has appendectomy, tonsillectomy, bilateral knee replacement, bilateral shoulder surgery, CABG x4 vessels, stent x8, cervical plate in neck. PSYCHIATRIC HISTORY: The patient has no previous in patient psych placement. The patient has a history of depression. SOCIAL HISTORY: No alcohol, no drugs. The patient smokes cigarettes on a daily basis, two packs per day. REPORTED MEDICATIONS: 1. Aspirin. 2. Lisinopril. 3. Lasix. 4. Metoprolol. 5. Plavix. 6. Pramipexole. 7. Vytorin. 8. Januvia. 9. Gabapentin. 10. Zolpidem. 11. Flexeril. 12. Ropinirole. 13. Prednisone. 14. Zithromax. 15. Albuterol. 16. Valium. PHYSICAL EXAMINATION: VITAL SIGNS: On presentation, blood pressure 124/80 with heart rate 92, respiratory rate was 22, pain 0/10, oxygen saturation was 93% on room air, occasional hypertension with systolic blood pressure 150. GENERAL APPEARANCE: The patient is alert, oriented, no acute distress. HEENT: Eyes: Normal conjunctiva. Moist oral mucosa. Anicteric. NECK: No JVD. RESPIRATORY: Bilateral air entry. No rales. No wheezes. Symmetric expansion. CARDIOVASCULAR: Normal rate, regular rhythm. No murmurs. No gallop. No edema. ABDOMEN: Soft, normal bowel sounds. MUSCULOSKELETAL: Baseline range of motion and strength. No tenderness. SKIN: Warm, intact. No pallor. No rash. No redness. Capillary refill seems to be intact. NEUROLOGIC: The patient has right upper extremity weakness with strength that is 4/5. The patient is blind. PSYCHIATRIC: The patient has good mood. No anxiety. Optimal judgment. DIAGNOSTIC DATA: EKG showed normal sinus rhythm with some fusion complexes at the rate of 87, incomplete RBBB. Low voltage QRS, might be due to patient's obesity. CT head was negative. CT angio showed patent [place] without stenosis, thrombosis or aneurysmal formation, patent vertebral arteries and no hemodynamically significant stenosis in the internal carotid arteries. Chest x-ray show cardiomegaly. LABORATORY DATA: Reviewed. The patient has white count 9.5, hemoglobin 18.8, MCV 94.6. PT 12.9, INR 1.0, PTT 28.1. Chemistry: Sodium 135, potassium 4.6, chloride 97, carbon dioxide 25, anion gap 18, BUN 14, creatinine 1.42, GFR 51, glucose 197, calcium 9.9, total bilirubin 0.5. LFTs were negative. Troponin was negative. Beta-natriuretic peptide was 16.3. Lipase 99. ASSESSMENT AND PLAN: The patient will be placed in the hospital with the following medical problems. 1. Transient ischemic attack, rule out stroke. The patient has still some residual weakness in the right upper extremity, but the symptoms have improved so far. We will place the patient in Stroke Unit. We will do a stroke protocol. We will do MRI, carotid Doppler, echo, Neuro consultation, Neuro team to see the patient. We will allow permissive hypertension. Reconcile home medications. 2. History of coronary artery disease. This is chronic, seems to be stable, reconcile home medications. 3. Hyponatremia, sodium 135, this is mild, no need for an acute intervention at this point. 4. Chronic kidney disease. The patient has a creatinine of 1.4. The previous creatinine was 1.3. This is stable, we will monitor. No need for any acute intervention at this point. 5. Uncontrolled diabetes. We will place the patient on sliding scale for optimal control. 6. Deep venous thrombosis prophylaxis. Job ID: [id number]
[2019-05-24 03:09] LABS: Troponin I Less than 0.010 ng/mL (< 0.028)
[2019-05-24 06:01] LABS: Anion Gap 17 mmol/L (10-20); BUN (Urea Nitrogen) 19 mg/dL (8.4-25.7); Calc. Creatinine Clearance 102 mL/min (70-130); Calcium 9.2 mg/dL (7.8-10.44); Carbon Dioxide 22 mmol/L (22-29); Cardiac Risk 3.4 (Less than 4.5); Chloride 100 mmol/L (98-107); Cholesterol 150 mg/dl (< 200 Desired); Estimated GFR-MDRD 40; Glucose 415 mg/dL (70-105); HDL Cholesterol 44 mg/dL (>60 Neg Risk); LDL Cholesterol, Calculated 80 mg/dL; Potassium 5.5 mmol/L (3.5-5.1); Sodium 133 mmol/L (136-145); Triglycerides 132 mg/dL (Less than 150)
[2019-05-24] MEDS: HumaLOG 300 UNITS/3 ML VIAL SC PRN ×2 (06:43→11:07)
[2019-05-24 06:46] LABS: #Eosinphils 0.1 thou/uL (0.0-0.7); #Lymphocytes 0.9 thou/uL (1.20-3.40); #Monocytes 0.1 thou/uL (0.11-0.59); #Neutrophils 7.5 thou/uL (1.40-6.50); %Eosinophils 0.6 % (0.0-10.0); %Lymphocytes 10.4 % (21.0-51.0); %Monocytes 1.5 % (0.0-10.0); %Neutrophils 87.5 % (42.0-75.0); Hemoglobin 18.6 g/dL (14.0-18.0); Mean Corpuscular HGB CONC 29.7 g/dL (32.0-36.0); Mean Corpuscular Hemoglobin 28.7 pg (27.0-31.0); Mean Corpuscular Volume 96.5 fL (78.0-98.0); Platelet Count 206 thou/uL (130-400); RBC Distribution Width 14.5 % (11.5-14.5); Red Blood Cell (RBC) Count 6.47 mill/uL (4.70-6.10); White Blood Cell (WBC) Count 8.6 thou/uL (4.8-10.8)
[2019-05-24 07:43] LABS: MDiff Complete? YES; Platelet Morphology Comment Appears Adequate; Polychromasia SLIGHT = 2-3 cells (100X) (0-2/hpf)
[2019-05-24] MEDS ORDERED: Enoxaparin Sodium 40 MG/0.4 ML SYRINGE SC SCH (09:00)
[2019-05-24] MEDS ORDERED: Aspirin 325 mg Enteric Coated Tablet PO SCH (09:00)
--- NOTE | 2019-05-24 09:33 | PDOC.PN ---
- Subjective Encounter Start Date: 05/24/19 Encounter Start Time: 11:40 Subjective: Patient with complete resolution of facial droop and right arm tingling. -: Couldn't fit in MRI machine. Patient threatening to leave AM if he can't -: have more salt in diet and diet Dr Allred which hospital doesn't have. - Objective Resuscitation Status - Order Detail: 05/23/19 22:22 Resuscitation Status Routine Resuscitation Status: FULL: Full Resuscitation MAR Reviewed: Yes Vital Signs & Weight: Vital Signs (12 hours) Temp Pulse Resp BP Pulse Ox 05/24/19 07:57 98.6 F 91 18 155/99 H 93 L 05/24/19 04:00 98.6 F 91 20 128/83 92 L 05/24/19 00:00 99.4 F 93 20 104/60 95 05/23/19 22:30 98.3 F 86 19 133/74 93 L Weight Weight 350 lb 5 oz I&O: 05/23/19 05/24/19 05/25/19 06:59 06:59 06:59 Intake Total 480 Output Total 1100 Balance -620 Result Diagrams: 05/24/19 05:04 05/24/19 05:04 Additional Labs: Accuchecks 05/24/19 05/23/19 06:44 20:04 POC Glucose 349 H 184 H Phys Exam - Physical Examination Constitutional: NAD HEENT: moist MMs no facial droop Respiratory: no wheezing, no rales, no rhonchi Cardiovascular: RRR, no significant murmur Gastrointestinal: soft, positive bowel sounds Neurological: non-focal, moves all 4 limbs Psychiatric: normal affect, A&O x 3 Dx/Plan (1) TIA (transient ischemic attack) Code(s): G45.9 - TRANSIENT CEREBRAL ISCHEMIC ATTACK, UNSPECIFIED Status: Acute Comment: symptoms resolved in the ER, MRI unable due to abdominal girth , ECHO pending (2) CKD (chronic kidney disease) stage 3, GFR 30-59 ml/min Status: Chronic Comment: creatinine stable (3) Polycythemia Code(s): D75.1 - SECONDARY POLYCYTHEMIA Status: Chronic Comment: worsening over the past 3 years per our records, likely related to smokine 2 PPD, I spoke with Elis Diehl from heme/onc, she stated that patient has polycythemia due to smoking, no cancer, only treatment is phebotomy which patient has refused, and that he has been fired by their practice after he got in a verbal altercation with the doctor (4) CAD (coronary artery disease) Code(s): I25.10 - ATHSCL HEART DISEASE OF [place] CORONARY ARTERY W/O ANG PCTRS Status: Chronic Qualifiers: Coronary Disease-Associated Artery/Lesion type: bypass graft [place] vs. transplanted heart: [place] heart Associated angina: without angina Qualified Code(s): I25.810 - Atherosclerosis of coronary artery bypass graft(s) without angina pectoris (5) DM type 2 (diabetes mellitus, type 2) Status: Chronic Qualifiers: Diabetes mellitus [facility] insulin use: unspecified buttermaker continuous churn insulin use status Diabetes mellitus complication status: with neurologic complications Diabetes mellitus complication detail: with unspecified neuropathy Qualified Code(s): E11.40 - Type 2 diabetes mellitus with diabetic neuropathy, unspecified (6) Dyslipidemia Code(s): E78.5 - HYPERLIPIDEMIA, UNSPECIFIED Status: Chronic (7) HTN (hypertension) Code(s): I10 - ESSENTIAL (PRIMARY) HYPERTENSION Status: Chronic Qualifiers: Hypertension type: essential hypertension Qualified Code(s): I10 - Essential (primary) hypertension Comment: (8) Tobacco abuse Code(s): Z72.0 - TOBACCO USE Status: Chronic Comment: smokes 2 ppd - Plan cont current plan of care, PT/OT stressed to patient the importance of waiting for neurology to -: see him, and that should he leave AMA he may have a worse stroke -: or heart attack that could be life threatening. He stated that he would -: think about. * . - Discharge Day Encounter end time: 11:50
[2019-05-24] MEDS ORDERED: Acetaminophen/Codeine 30-300mg Tablet PO PRN ×2 (09:44→10:01)
[2019-05-24] MEDS ORDERED: Non-Formulary Item 1 EACH (Famotidine 20 MG) PO PRN (09:44)
[2019-05-24] MEDS ORDERED: Cyclobenzaprine 10 MG TAB PO PRN (09:44)
[2019-05-24] MEDS ORDERED: Diazepam 5 MG TAB PO PRN (09:44)
[2019-05-24] MEDS ORDERED: Meclizine HCl 25 MG TAB PO PRN (09:44)
[2019-05-24] MEDS ORDERED: Sodium Chloride 0.9% 1,000 ML IV SCH (09:45)
[2019-05-24] MEDS ORDERED: Famotidine 20 MG TAB PO PRN (10:10)
[2019-05-24 11:33] VITALS: BP 137/80; TEMP 97.6
[2019-05-24] MEDS ORDERED: Metoclopramide HCl 10 MG/2 ML VIAL IVP PRN (12:00)
[2019-05-24] MEDS ORDERED: diphenhydrAMINE 25 MG in Sodium Chloride 0.9% 50 ML IVPB PRN (12:00)
[2019-05-24] MEDS ORDERED: Gabapentin 400 MG CAP PO SCH (21:00)
[2019-05-24] MEDS ORDERED: Zolpidem Tartrate 5 MG TAB PO SCH (21:00)
[2019-05-24] MEDS ORDERED: Non-Formulary Item 1 EACH (Ezetimibe/Simvastatin [Vytorin] 1 TABLET) PO SCH (21:00)
[2019-05-24] MEDS ORDERED: INSULIN DETEMIR SQ SCH (21:00)
[2019-05-24] MEDS ORDERED: VYTORIN PO SCH (21:00)
[2019-05-24] MEDS ORDERED: Non-Formulary Item 1 EACH (Gabapentin [Gabapentin] 800 MG) PO SCH (21:00)
[2019-05-24] MEDS ORDERED: Lisinopril 5 MG TAB PO SCH (21:00)
[2019-05-24] MEDS ORDERED: Non-Formulary Item 1 EACH (Zolpidem Tartrate [Ambien] 10 MG) PO SCH (21:00)
[2019-05-24] MEDS ORDERED: Ezetimibe 10 MG TAB PO SCH (21:00)
[2019-05-24] MEDS ORDERED: Simvastatin 40 MG TAB PO SCH (21:00)
[2019-05-24] MEDS ORDERED: Insulin Glargine 43 UNITS in Pre-Filled Syringe 1 EACH SC SCH (21:00)
--- NOTE | 2019-05-25 04:32 | DIS ---
DATE OF ADMISSION: 05/23/2019 DATE OF DISCHARGE: 05/24/2019 PRIMARY CARE PHYSICIAN: Beulah Mckoy DO REASON FOR ADMISSION: Transient ischemic attack. DISCHARGE DIAGNOSES: 1. Transient ischemic attack. 2. Chronic kidney disease. 3. Polycythemia secondary to tobacco abuse and likely obstructive sleep apnea. 4. Coronary artery disease. 5. Diabetes mellitus, type 2. 6. Dyslipidemia. 7. Hypertension. 8. Tobacco abuse. PROCEDURES: 1. CT of the brain without contrast showing no acute hemorrhage or infarct. 2. CT angiography of the head and neck showing patent [place], patent vertebral arteries and no hemodynamically significant stenosis of the internal carotid arteries. CONSULTATIONS: None completed. SUMMARY OF HOSPITAL COURSE: This is a 59-year-old male with a history of diabetes, congestive heart failure, coronary artery disease and previous polycythemia, thought to be secondary to obstructive sleep apnea and persistent tobacco abuse. The patient presents to the emergency room with right upper extremity weakness, tingling, and some mild right facial droop. This resolved by the time he was seen in the emergency room. He had no other symptoms during his hospitalization beside some chronic headache. The patient had above studies done. He was attempted to get an MRI. However, his abdominal girth was too much to be able to go into the MRI machine. I did talk to the patient about his polycythemia and need for Heme-Onc evaluation. The patient stated he has seen Dr. Mccarthy in the past. However, he got into a severe argument with Dr. Mccarthy and has no longer sees their practice. He has been told that he needs a regular phlebotomy. However, he does not want to do this as he requires too many office visits and he does not have good transportation. After patient was seen in the hospital, we did try and get Heme-Oncology and Neurology consults. However, the patient became upset that we did not have Diet Dr Allred in the hospital and also with his healthy heart diet, he asked that we change it to a regular diet. I did tell him that given his medical problems including his coronary artery disease and known previous TIAs, that he was at significant risk for things like strokes and heart attacks and that we may need to keep him on a low-sodium, healthy-heart diet. We also currently do not have the diet Dr. Allred which he became very upset about. He eventually would term that he would go AMA. I did warn him that if he left the hospital, then he might have a more severe stroke or heart attack and that we need to finish our evaluation. However, he decided to sign out AMA and did leave before he was seen by any of the consultants. Job ID: [id number] MTDD
[2019-05-25] MEDS ORDERED: Metoprolol Tartrate 25 MG TAB PO SCH (09:00)
[2019-05-25] MEDS ORDERED: Clopidogrel Bisulfate 75 MG TAB PO SCH (09:00)
[2019-05-25] MEDS ORDERED: GABAPENTIN 1600 MG PO SCH (09:00)
[2019-05-25] MEDS ORDERED: ROPINIROLE HCL 2 MG PO SCH (09:00)
[2019-05-25] MEDS ORDERED: Gabapentin 400 MG CAP PO SCH (09:00)
[2019-05-25] MEDS ORDERED: Alogliptin 25 MG TAB PO SCH (09:00)
[2019-05-25] MEDS ORDERED: Furosemide 80 MG TAB PO SCH (09:00)
[2019-05-25] MEDS ORDERED: ROPINIROLE 2 MG PO SCH (09:00)
--- NOTE | 2019-05-28 11:00 | CT ---
CTA Angio Head W WO Con CTA neck with contrast History: Level 1 stroke. Comparison: None. Findings: CT angiogram of the head and neck performed after the intravenous administration of contras t. 3-D rendering provided. Lung apices are clear. ACDF hardware from C5-C7. No acute osseous abnormality. Thyroid is unremarkable. Origins of the vertebral arteries are poorly visualized due to habitus. Vert ebral arteries are codominant. The common carotid arteries are patent. Per NASCET criteria no hemodynamically significant stenosis o f the internal carotid arteries. Basilar artery is patent. [place] is patent without stenosis, thrombosis, or aneurysm format ion. Impression: 1. Patent [place] without stenosis, thrombosis, or aneurysm formation. 2. Patent vertebral arteries. 3. Per NASCET criteria no hemodynamically significant stenosis of the internal carotid arteries. Code CR: Dr. James Transcribed Date/Time: 05/28/2019 11:00 AM
--- NOTE | 2019-05-28 12:52 | EKG ---
Test Reason : STROKE Blood Pressure : / mmHG Vent. Rate : 087 BPM Atrial Rate : 087 BPM P-R Int : 184 ms QRS Dur : 100 ms QT Int : 380 ms P-R-T Axes : 058 -24 089 degrees QTc Int : 457 ms Sinus rhythm with Fusion complexes Possible Left atrial enlargement Low voltage QRS Incomplete right bundle branch block Possible Inferior infarct , age undetermined Abnormal ECG Confirmed by NOEMÍ LU, AUDRA (12), editor book BERE REYNA ([id number]) on 05/28/2019 12:52:29 PM Referred By: Confirmed By:AUDRA DOWD MD
== END 2019-05-24 14:45 | disposition left against medical advice (07) ==
LOC: ERS 19:55 → 2SE 22:32
PROVIDERS: ADMIT Hospitalist; ATTEND Hospitalist
DX: G45.9 Transient cerebral ischemic attack, unspecified (principal); I13.0 Hypertensive heart and chronic kidney disease with heart failure and stage 1 through stage 4 chronic kidney disease, or unspecified chronic kidney disease; E11.22 Type 2 diabetes mellitus with diabetic chronic kidney disease; N18.3 Chronic kidney disease, stage 3 (moderate); I50.9 Heart failure, unspecified; I25.10 Atherosclerotic heart disease of native coronary artery without angina pectoris; E87.1 Hypo-osmolality and hyponatremia; E11.40 Type 2 diabetes mellitus with diabetic neuropathy, unspecified; F17.218 Nicotine dependence, cigarettes, with other nicotine-induced disorders; D75.1 Secondary polycythemia; H54.7 Unspecified visual loss; Z86.73 Personal history of transient ischemic attack (TIA), and cerebral infarction without residual deficits; Z79.02 Long term (current) use of antithrombotics/antiplatelets; Z79.4 Long term (current) use of insulin; Z79.52 Long term (current) use of systemic steroids; Z79.82 Long term (current) use of aspirin; Z79.899 Other long term (current) drug therapy; Z88.0 Allergy status to penicillin; Z88.2 Allergy status to sulfonamides; Z88.8 Allergy status to other drugs, medicaments and biological substances; Z95.1 Presence of aortocoronary bypass graft; Z95.5 Presence of coronary angioplasty implant and graft; Z98.1 Arthrodesis status; Z98.890 Other specified postprocedural states
CPT/HCPCS: 70450; 70496; 70498; 71045; 80048; 80053; 80061; 82550; 82962 ×2; 83690; 83880; 84484 ×3; 85025 ×2; 85610; 85730; 93005; 93306; 94760; 96365; 96375 ×2; 96376; 99285; G0378 ×3; 36415; 36416; J1100; J1200; J1650; J1885; J2765; J3010; Q9966

== ENCOUNTER 2019-07-17 15:45 | Emergency (ER) | payer MEDICARE ==
[2019-07-17] MEDS ORDERED: methylPREDNISolone Sod Succ/PF 125 MG/2 ML VIAL ONE (16:07)
[2019-07-17 16:18] LABS: #Eosinphils 0.4 thou/uL (0.0-0.7); #Lymphocytes 1.7 thou/uL (1.20-3.40); #Monocytes 1.2 thou/uL (0.11-0.59); #Neutrophils 9.7 thou/uL (1.40-6.50); %Basophils 0.3 % (0.0-1.0); %Eosinophils 2.9 % (0.0-10.0); %Lymphocytes 12.7 % (21.0-51.0); %Neutrophils 75.1 % (42.0-75.0); Hemoglobin 19.7 g/dL (14.0-18.0); Mean Corpuscular Hemoglobin 31.4 pg (27.0-31.0); Mean Corpuscular Volume 95.3 fL (78.0-98.0); Mean Platelet Volume 8.7 fL (7.4-10.4); Platelet Count 201 thou/uL (130-400); RBC Distribution Width 14.7 % (11.5-14.5); Red Blood Cell (RBC) Count 6.26 mill/uL (4.70-6.10); White Blood Cell (WBC) Count 12.9 thou/uL (4.8-10.8)
[2019-07-17 16:46] LABS: ALT (SGPT) 20 U/L (8-55); AST (SGOT) 21 U/L (5-34); Albumin 4.1 g/dL (3.5-5.0); Alkaline Phosphatase 125 U/L (40-150); Anion Gap 16 mmol/L (10-20); BUN (Urea Nitrogen) 12 mg/dL (8.4-25.7); Bilirubin, Total 0.9 mg/dL (0.2-1.2); Calc. Creatinine Clearance 0 mL/min (70-130); Calcium 9.8 mg/dL (7.8-10.44); Carbon Dioxide 26 mmol/L (22-29); Chloride 100 mmol/L (98-107); Estimated GFR-MDRD 54; Globulin 3.5 g/dL (2.4-3.5); Glucose 158 mg/dL (70-105); Potassium 4.5 mmol/L (3.5-5.1); Protein, Total 7.6 g/dL (6.0-8.3); Sodium 137 mmol/L (136-145)
--- NOTE | 2019-07-17 17:03 | RAD ---
RADIOGRAPH CHEST 1 VIEW: DATE: 07/17/2019 HISTORY: 59-year-old male with chest pain and dyspnea. FINDINGS: There is no airspace density, pulmonary edema, or pneumothorax. The lateral costophrenic angles are n ot effaced. Sternotomy wires. IMPRESSION: 1. No acute pulmonary findings. 2. Signs of previous open-heart surgery.
[2019-07-17] MEDS ORDERED: Albuterol Sulfate 2.5 mg/3 ml Neb ONE (17:33)
== END 2019-07-17 19:12 | disposition home or self-care (01) ==
LOC: ERS 15:45
DX: J20.9 Acute bronchitis, unspecified (principal); I10 Essential (primary) hypertension; E11.40 Type 2 diabetes mellitus with diabetic neuropathy, unspecified; F32.9 Major depressive disorder, single episode, unspecified; F17.210 Nicotine dependence, cigarettes, uncomplicated; I25.2 Old myocardial infarction; Z86.73 Personal history of transient ischemic attack (TIA), and cerebral infarction without residual deficits; Z79.899 Other long term (current) drug therapy; Z79.82 Long term (current) use of aspirin; Z79.51 Long term (current) use of inhaled steroids
CPT/HCPCS: 71045; 80053; 83880; 84484; 85025; 93005; 94640; 96374; J2930; J7611; J7620

== ENCOUNTER 2019-10-25 11:04 | Inpatient (IN) | payer MEDICARE ==
[2019-10-25] MEDS ORDERED: Iopamidol-370 76% 500 ML 1 ML ONE (11:24)
[2019-10-25] MEDS ORDERED: Morphine 4 MG/ML VIAL ONE (11:45)
[2019-10-25 11:53] LABS: #Eosinphils 0.4 thou/uL (0.0-0.7); #Lymphocytes 2.1 thou/uL (1.20-3.40); #Monocytes 0.9 thou/uL (0.11-0.59); #Neutrophils 7.8 thou/uL (1.40-6.50); %Basophils 0.4 % (0.0-1.0); %Eosinophils 3.4 % (0.0-10.0); %Monocytes 7.6 % (0.0-10.0); %Neutrophils 69.5 % (42.0-75.0); Hemoglobin 18.5 g/dL (14.0-18.0); Mean Corpuscular HGB CONC 32.3 g/dL (32.0-36.0); Mean Corpuscular Hemoglobin 30.4 pg (27.0-31.0); Mean Corpuscular Volume 94.2 fL (78.0-98.0); Mean Platelet Volume 8.3 fL (7.4-10.4); Platelet Count 254 thou/uL (130-400); Red Blood Cell (RBC) Count 6.09 mill/uL (4.70-6.10); White Blood Cell (WBC) Count 11.2 thou/uL (4.8-10.8)
[2019-10-25 12:00] LABS: INR-International Normal Ratio 0.9; PTT 33.9 SEC (22.9-36.1); Prothrombin Time 12.4 SEC (12.0-14.7)
[2019-10-25 12:13] LABS: ALT (SGPT) 18 U/L (8-55); AST (SGOT) 22 U/L (5-34); Albumin 3.8 g/dL (3.5-5.0); Alkaline Phosphatase 121 U/L (40-110); Anion Gap 13 mmol/L (10-20); BUN (Urea Nitrogen) 9 mg/dL (8.4-25.7); Bilirubin, Total 0.6 mg/dL (0.2-1.2); Calc. Creatinine Clearance 0 mL/min (70-130); Calcium 8.9 mg/dL (7.8-10.44); Carbon Dioxide 30 mmol/L (22-29); Chloride 98 mmol/L (98-107); Estimated GFR-MDRD 54; Globulin 3.1 g/dL (2.4-3.5); Glucose 179 mg/dL (70-105); Potassium 3.9 mmol/L (3.5-5.1); Protein, Total 6.9 g/dL (6.0-8.3); Sodium 137 mmol/L (136-145)
[2019-10-25] MEDS ORDERED: metroNIDAZOLE 500 MG/100 ML BAG ONE (12:58)
--- NOTE | 2019-10-25 13:39 | CT ---
CT Abdomen Pelvis W Con History: Pain Comparison: None. Findings: Lung bases are clear. No pericardial effusion. Soft tissues thickening over the right anterior hemipelvis skin and subcutaneous fat. No dilated loops of large or small bowel. Mild bilateral perirenal stranding. Cyst inferior pole right kidney. No hydronephrosis. Mild facet arthrosis lower lumbar spine. Moderate bilateral hydroceles. Single small focus of gas along the right perineum. No retroperitoneal periaortic adenopathy. Impression: 1. Small single focus of gas on the right perineum axial image 120 concerning for infection with gas- forming organism. 2. Scrotal swelling with bilateral hydroceles.
--- NOTE | 2019-10-25 14:46 | PDOC.FPRHP ---
- Allergies/Adverse Reactions Allergies Allergy/AdvReac Type Severity Reaction Status Date / Time Penicillins Allergy Severe Anaphylaxis Verified 12/18/18 23:59 Sulfa (Sulfonamide Allergy Severe Anaphylaxis Verified 12/18/18 23:59 Antibiotics) amitriptyline Allergy Rash Verified 12/18/18 23:59 - Home Medications Medication Instructions Recorded Confirmed Type Aspirin 325 mg PO HS 10/10/16 05/23/19 History Clopidogrel Bisulfate [Plavix] 75 mg PO QAM 10/10/16 05/23/19 History Ezetimibe/Simvastatin [Vytorin] 1 tablet PO QPM 10/10/16 05/23/19 History Famotidine [Pepcid] 20 mg PO BID PRN 10/10/16 05/23/19 History Furosemide [Lasix] 80 mg PO QAM 10/10/16 05/23/19 History Lisinopril 5 mg PO HS 10/10/16 05/23/19 History Metoprolol Tartrate 25 mg PO QAM 10/10/16 05/23/19 History Zolpidem Tartrate [Ambien] 10 mg PO HS 10/10/16 05/23/19 History Acetaminophen With Codeine 2 capsule PO TID PRN 08/25/17 05/23/19 History [Tylenol with Codeine #3] Cyclobenzaprine [Flexeril] 10 mg PO TID PRN 08/25/17 05/23/19 History Gabapentin 1,600 mg PO QAM 08/25/17 05/23/19 History Gabapentin 800 mg PO HS 08/25/17 05/23/19 History sitaGLIPtin Phosphate [Januvia] 100 mg PO DAILY 08/25/17 05/23/19 History Diazepam 5 - 10 mg PO BID PRN 12/18/18 05/23/19 History Meclizine HCl 50 mg PO BID PRN 12/18/18 05/23/19 History HumaLOG 0 unit SC AC PRN 12/19/18 05/23/19 History Insulin Detemir [Levemir] 43 unit SQ BID 12/19/18 05/23/19 History rOPINIRole HCl [Ropinirole ER] 2 mg PO QAM 05/23/19 05/23/19 History - History PMHx: PSHx: FHx: Social: - Vital signs BP: [] HR: [] RR: [] Tmax: [] Pox: []% on [] Wt: [] FMR H&P: Results - Labs Result Diagrams: 10/25/19 11:42 10/25/19 11:42 Lab results: WBC 11.2 thou/uL (4.8-10.8) H 10/25/19 11:42 Hgb 18.5 g/dL (14.0-18.0) H 10/25/19 11:42 Hct 57.4 % (42.0-52.0) H 10/25/19 11:42 MCV 94.2 fL (78.0-98.0) 10/25/19 11:42 Plt Count 254 thou/uL (130-400) 10/25/19 11:42 Neutrophils % 69.5 % (42.0-75.0) 10/25/19 11:42 Sodium 137 mmol/L (136-145) 10/25/19 11:42 Potassium 3.9 mmol/L (3.5-5.1) 10/25/19 11:42 Chloride 98 mmol/L (98-107) 10/25/19 11:42 Carbon Dioxide 30 mmol/L (22-29) H 10/25/19 11:42 BUN 9 mg/dL (8.4-25.7) 10/25/19 11:42 Creatinine 1.36 mg/dL (0.7-1.3) H 10/25/19 11:42 Glucose 179 mg/dL (70-105) H 10/25/19 11:42 Lactic Acid 2.1 mmol/L (0.5-2.2) 10/25/19 11:42 Calcium 8.9 mg/dL (7.8-10.44) 10/25/19 11:42 Total Bilirubin 0.6 mg/dL (0.2-1.2) 10/25/19 11:42 AST 22 U/L (5-34) 10/25/19 11:42 ALT 18 U/L (8-55) 10/25/19 11:42 Alkaline Phosphatase 121 U/L (40-110) H 10/25/19 11:42 Serum Total Protein 6.9 g/dL (6.0-8.3) 10/25/19 11:42 Albumin 3.8 g/dL (3.5-5.0) 10/25/19 11:42 FMR H&P: Upper Level - Plan Date/Time: 10/25/19 4749 I, [], have evaluated this patient and agree with findings/plan as outlined by general internal medicine doctor resident. Pertinent changes/additions are listed here.
[2019-10-25 15:01] LABS: Lactic Acid 1.7 mmol/L (0.5-2.2)
[2019-10-25] MEDS ORDERED: Fentanyl 100 MCG/2 ML VIAL ONE (15:02)
[2019-10-25] MEDS ORDERED: Lidocaine 1% (PF) 30 ML VIAL ONE (17:12)
[2019-10-25 17:31] VITALS: BMI 49.0
[2019-10-25] MEDS ORDERED: HYDROcodone/Acetaminophen 5/325 mg Tablet PO PRN ×2 (18:15)
[2019-10-25] MEDS ORDERED: Dextrose 5% in Water 1,000 ML IV PRN (18:17)
[2019-10-25] MEDS ORDERED: Dextrose 50% Abboject 50 ML SYRINGE SLOW IVP PRN (18:17)
[2019-10-25] MEDS ORDERED: Meclizine HCl 25 MG TAB PO PRN (19:07)
[2019-10-25] MEDS ORDERED: Famotidine 20 MG TAB PO PRN (19:07)
[2019-10-25] MEDS ORDERED: Diazepam 5 MG TAB PO PRN (19:07)
[2019-10-25] MEDS ORDERED: Cyclobenzaprine 10 MG TAB PO PRN (19:07)
[2019-10-25] MEDS ORDERED: Acetaminophen/Codeine 30-300mg Tablet PO PRN (19:07)
[2019-10-25] MEDS ORDERED: Non-Formulary Item 1 EACH (Insulin Detemir [Levemir] 45 UNIT) SQ SCH (21:00)
[2019-10-25] MEDS ORDERED: Non-Formulary Item 1 EACH (Ezetimibe/Simvastatin [Vytorin] 1 TABLET) PO SCH (21:00)
[2019-10-25] MEDS: Aspirin 325 MG TAB PO SCH (21:19)
[2019-10-25] MEDS: Ezetimibe 10 MG TAB PO SCH (21:20)
[2019-10-25] MEDS: Simvastatin 40 MG TAB PO SCH (21:20)
[2019-10-25] MEDS: Gabapentin 400 MG CAP PO SCH (21:20)
[2019-10-25] MEDS: Zolpidem Tartrate 5 MG TAB PO SCH (21:20)
[2019-10-25] MEDS: Lisinopril 5 MG TAB PO SCH (21:20)
[2019-10-25] MEDS: Insulin Glargine 45 UNITS in Pre-Filled Syringe 1 EACH SC SCH (21:21)
--- NOTE | 2019-10-25 21:41 | HP ---
CHIEF COMPLAINT: Draining abscess of the scrotum. HISTORY OF PRESENT ILLNESS: This patient is a 59-year-old male, who was admitted to this facility a few years ago with a large infection in the scrotal area and perineum. At that time, he was seen by surgery, apparently had some verrucous type lesions. Had to have some significant debridement and a skin graft and had a complicated postsurgical course with respiratory failure, ICU admission, prolonged recovery and time in a rehab. The patient reports that since that time, he has had some occasional recurrences of that area on the scrotum and extending back to the rectal area in the perineum in which there was some swelling, drainage, and pain. He said initially it took about a year and a half and then it became more frequent about every six months and now it is recurring about every two months. It becomes very painful and sometimes will rupture and drain on its own. The most recent time, the patient has actually taking the needle off his insulin and essentially punctured the area multiple times, which did not initially cause any drainage, but he said overnight filled his bed with some bloody drainage from the area. This has occurred again on this particular occasion. The pain was more severe than usual. The patient says he is blunt, but was able to palpate from the scrotum all the way back to the rectum and up on the lateral aspect of the scrotum. This area was very painful and that is why he presented to the hospital. He denies any specific associated fevers or chills. REVIEW OF SYSTEMS: He has had normal bowel and bladder habits, although his stools have been a bit loose. They are not diarrhea. All other systems reviewed. All pertinent positives and negatives noted in the HPI. PAST MEDICAL HISTORY: Notable for diabetes, congestive heart failure, coronary artery disease, hypertension, previous TIAs, has had diabetic neuropathy in his left leg. He does report some peripheral vision. PAST SURGICAL HISTORY: Appendectomy, tonsillectomy, bilateral knee replacements, bilateral shoulder surgery, coronary artery bypass graft x4, 8 coronary stents and a cervical plate. FAMILY HISTORY: Mother had diabetes and heart disease. Father, he does not know. PSYCHIATRIC HISTORY: Does have a history of depression. SOCIAL HISTORY: The patient lives with his aunt and his daughter. He is a non drug user, nondrinker. He does smoke two packs of cigarettes per day. He is full code. PHYSICAL EXAMINATION: VITAL SIGNS: On presentation, BP 119/74, pulse 86, respirations 16, temperature 98.1, O2 saturations were 97% on room air. GENERAL APPEARANCE: Age-appropriate male. He is morbidly obese. He is in no distress. Awake, alert, pleasant, cooperative. HEENT: Pupils are sluggish. He has no OP lesions. NECK: Supple and symmetric. HEART: Regular rate and rhythm. No murmurs, gallops, or rubs. LUNGS: Clear to auscultation bilaterally. Diminished, but no wheezes or rales. ABDOMEN: Obese, soft, nontender, and nondistended. Positive bowel sounds. No masses. No organomegaly. EXTREMITIES: No cyanosis, clubbing, or edema. : There is a pouch on the right lower scrotum, which appears to be largely residual scar tissue with some very slight tenderness to palpation in that area. There is a line of induration extending posterior all the way back to the perirectal area without evidence of any drainage and this is all basically on the right side. Left side appears generally normal. PSYCH: Normal affect and behavior. NEUROLOGIC: Cognitively intact. Cranial nerves intact other than the sluggish pupillary reactions and diminished central vision. Otherwise, no focal deficits. LABORATORY DATA: White count 11.2, hemoglobin 18.5, platelets 254. INR 0.9, PTT is 33.9. Chemistries notable for CO2 of 30, creatinine of 1.36, GFR 54, glucose 179, lactic acid was 2.9 with subsequent 1.7. AST is 12, ALT is 18, alkaline phosphatase 121. CT abdomen and pelvis, small single focus of gas in the right perineum concerning for infection with gas-forming organism. Scrotal swelling and bilateral hydroceles. IMPRESSION AND PLAN: 1. Possible right scrotal abscess/cellulitis. There is not a lot of erythema going on. There is no drainage at the moment. Certainly, there is a modest finding on the CT scan. We will keep him in the hospital, start him on IV antibiotics. Consult Urology and let him decide if there is surgical intervention indicated at this point. 2. Diabetes mellitus. Accu-Cheks sliding scale. Continue with his home regimen. 3. Coronary artery disease. Continue Plavix, aspirin, beta blockers. 4. Diabetic neuropathy. Continue with his gabapentin. 5. Hyperlipidemia. Continue Vytorin. Job ID: [id number]
--- NOTE | 2019-10-25 22:03 | CON ---
DATE OF CONSULTATION: 10/25/2019 CONSULTING: Emergency Room. CONSULTED: Moreno Moya MD REASON FOR CONSULTATION: Perineal abscess. HISTORY OF PRESENT ILLNESS: Mr. Miller is a 59-year-old white male with a history of apparent prior problems with infections in his scrotum. He presented with a several-day history of worsening pain in the perineal area with no reported fevers, but worsening pain and what felt like a hard area. The patient used a needle at home to poke the area that he felt was indurated and noticed a significant amount of drainage of purulent foul-smelling material. The patient is almost completely blind, so he could not see the actual fluid that came out, but reported that it was foul smelling and had accumulated a fairly significant amount on the bed at night. This did result in some improvement in symptoms, but then he progressively started having worsening pain and the area of hardness came back but extended all the way from the rectal area to the base of his scrotum, so he came in to the emergency room where he underwent a CT scan demonstrating what appeared to be cellulitis with possible abscess with a few areas of scattered air pockets within the perineum. I was consulted then for further assistance regarding a possible Julia gangrene versus perineal abscess versus cellulitis. On my discussion with the patient, he states that he can urinate relatively easily. He denies any dysuria. He is not having any significant problems with defecation or painful bowel movements. He is diabetic and states that he keep his blood sugars relatively well controlled. He has had a history in the past of severe infection resulting in medically-induced coma for almost 2 to 3 months, at which time, he had such a bad infection in the scrotal area that required skin grafting and reconstruction of the scrotum. The patient had a long and protracted recovery from this, but ultimately did improve where he was relatively asymptomatic and doing well for approximately a year. He has had problems with genital warts in the area and has had some recurrent infections in the perineal and scrotal area secondary to him self excising warts at home with unsterilized instruments. He currently denies any fevers. His pain is currently a 3/10, mostly in the base of the scrotum and along the perineum. Again, he has no fevers. ALLERGIES: 1. AMITRIPTYLINE. 2. PENICILLIN. 3. SULFA. HOME MEDICATIONS: 1. Aspirin. 2. Lisinopril. 3. Lasix. 4. Metoprolol. 5. Plavix. 6. Pramipexole. 7. Vytorin. 8. Januvia. 9. Gabapentin. 10. Zolpidem. 11. Flexeril. 12. Ropinirole. 13. Albuterol. 14. Valium. 15. Levemir FlexPen. 16. Humalog. 17. Protonix. PAST MEDICAL HISTORY: 1. Coronary artery disease. 2. Congestive heart failure. 3. Myocardial infarctions x8. 4. Diabetes mellitus type 2, poorly controlled. 5. Blindness. 6. Rotator cuff tears. 7. Sciatica. 8. Morbid obesity. 9. Diabetic neuropathy. 10. Hypertension. 11. Transient ischemic attacks. 12. H pylori infections. 13. Nicotine dependence. 14. Chronic kidney disease stage 3. 15. Gastroesophageal reflux disease. 16. Chronic insomnia. 17. COPD. PAST SURGICAL HISTORY: 1. Appendectomy. 2. Tonsillectomy. 3. Bilateral knee replacements. 4. Bilateral shoulder surgery. 5. CABG x4 vessels. 6. Cardiac stents x8. 7. Cervical plate to neck. 8. Scrotal reconstructive surgery. FAMILY HISTORY: Significant for cardiac disease and diabetes. SOCIAL HISTORY: The patient denies alcohol abuse or illicit drug use. He uses tobacco and smokes cigarettes, which he has done for over 40 years around two packs per day. REVIEW OF SYSTEMS: A 12-point review of systems was reviewed with the patient and negative other than the patient's reported perineal pain and swelling. Specifically he denies shortness of breath, chest pain, fevers, nausea, vomiting, difficulty with urination, or known hematuria. PHYSICAL EXAMINATION: VITAL SIGNS: Temperature 97.2, pulse 86, respirations 16, blood pressure 118/86, and saturations 97% on room air. GENERAL: No apparent distress. Communicative and alert. Answering questions appropriately. Extremely obese. HEENT: Normocephalic and atraumatic. Pupils are symmetric and round. The patient is currently blind, he cannot see. Moist mucous membranes. Trachea midline. CARDIOVASCULAR: Regular rate and rhythm. Normal S1 and S2. Symmetric pulses in the upper extremities. CHEST: No increased work of breathing, symmetric expansion of lungs, distant breath sounds. ABDOMEN: Protuberant and obese. Soft, nondistended, nontender. No obvious organomegaly. No rebound or guarding tenderness. GENITOURINARY: The patient has normal-appearing penis, nonfocal without lesions or rashes. There is significant purulent exudative discharge along the inguinal creases, presumably from drainage from prior self-induced puncture. The scrotum demonstrates evidence of previous reconstructive surgery, which is relatively large. There does appear to be lax bilateral hydroceles. There is erythema which creeps up onto both sides of the lateral aspects of the scrotum. The posterior scrotum is indurated along with the perineum which is significantly indurated. There is no crepitus. It is tender to palpation. There are genital warts along the entire perineum and inner thigh. There are macerations of the tissues. RECTUM: Rectal exam was not performed at this time. EXTREMITIES: Stasis dermatitis bilaterally. 2+ edema. Positive clubbing with evidence of cyanosis of the lower extremities. MUSCULOSKELETAL: No joint deformities or joint erythema noted. The patient does have limited range of motion, but can move all extremities equally. NEUROLOGIC: Cranial nerves 2 through 12 appear grossly intact. There is decreased sensation in the lower extremities. No obvious motor deficits other than some weakness in the legs, which apparently the patient reports is chronic. SKIN: Warm, dry, lesions as previously described on genitourinary exam and lower extremity findings. No other rashes noted. PSYCHIATRIC: Alert and oriented x3. Appropriate mood and affect. LYMPHS: There is no obvious lymphadenopathy in the inguinal region, although palpation is difficult secondary to the patient's obesity. LABORATORY DATA: The labs are in the [facility] system, which I have reviewed. Of note, the patient's white count is 11.2, creatinine of 1.36, blood sugar of 179, and INR is currently 0.9. CT from October 25 done with contrast demonstrates a small single focus of gas in the right perineum concerning for infection with possible gas-forming organism. There is also scrotal swelling with bilateral hydroceles. On my review, which I have reviewed the images independently, there does not appear to be any obvious fluid collection amenable to drainage. ASSESSMENT AND PLAN: This is a 59-year-old white male with evidence of scrotal cellulitis with air within the tissues, which may be due to self-inflicted drainage that the patient attempted to do on his own recently or due to a possible gas-forming organism. There is no emphysema within the tissues or evidence of Julia gangrene. Currently, the tissues do appear viable. The patient obviously remains at high risk for deterioration to Julia gangrene. He will need close monitoring, and I would recommend a repeat CT scan tomorrow without contrast to evaluate for increasing amounts of air within the perineum. If he has increasing air, fevers or elevating white count, I would give consideration to debridement of necrotic tissues, which would require near complete excision of the perineum and posterior scrotum, which would result in a protracted recovery and significant morbidity. This given the patient's significant cardiac, pulmonary comorbidities, diabetes and current antiplatelets would potentially result in fairly significant morbidity. I would like to try and hold off from surgical intervention if possible and try to manage medically with IV antibiotics and close monitoring. However, if necessary, surgical intervention will need to be done. There is no evidence for any type of fluid collection drain at this time. I will keep a close eye on this patient and follow him closely over the course of the next few days with plan for a repeat CT tomorrow. Job ID: [id number]
[2019-10-25] MEDS: Vancomycin 1.5 GRAM/300 ML BAG 1.5 GM in Premix Bag 1 BAG IVPB SCH (23:36)
[2019-10-26 05:41] LABS: #Basophils 0.1 thou/uL (0.0-0.2); #Eosinphils 0.3 thou/uL (0.0-0.7); #Lymphocytes 1.8 thou/uL (1.20-3.40); #Monocytes 0.6 thou/uL (0.11-0.59); #Neutrophils 5.2 thou/uL (1.40-6.50); %Basophils 0.8 % (0.0-1.0); %Eosinophils 4.2 % (0.0-10.0); %Lymphocytes 22.2 % (21.0-51.0); %Neutrophils 64.8 % (42.0-75.0); Hemoglobin 17.1 g/dL (14.0-18.0); Mean Corpuscular HGB CONC 31.7 g/dL (32.0-36.0); Mean Corpuscular Hemoglobin 30.1 pg (27.0-31.0); Mean Corpuscular Volume 94.9 fL (78.0-98.0); Mean Platelet Volume 8.5 fL (7.4-10.4); Platelet Count 204 thou/uL (130-400); Red Blood Cell (RBC) Count 5.69 mill/uL (4.70-6.10)
[2019-10-26] MEDS: Gabapentin 400 MG CAP PO SCH ×2 (08:45→20:20)
[2019-10-26] MEDS: Alogliptin 25 MG TAB PO SCH (08:46)
[2019-10-26] MEDS: Furosemide 80 MG TAB PO SCH (08:46)
[2019-10-26] MEDS: Metoprolol Tartrate 25 MG TAB PO SCH (08:46)
[2019-10-26] MEDS: Insulin Glargine 45 UNITS in Pre-Filled Syringe 1 EACH SC SCH ×2 (08:47→20:20)
[2019-10-26] MEDS ORDERED: FLU VACC QS2019-20(6MOS UP)/PF 60 MCG/0.5 ML SYRINGE IM ONE (09:00)
[2019-10-26] MEDS ORDERED: ROPINIROLE HCL 2 MG PO SCH (09:00)
--- NOTE | 2019-10-26 09:57 | CT ---
EXAM: CT Pelvis WO Con DATE: 10/26/2019 11:00 AM INDICATION: Evaluate for perineum gas; bilateral scrotal swelling COMPARISON: CT the abdomen and pelvis without contrast dated October 25, 2019. FINDING: Small focus of gas is again seen within the posterior right scrotal wall on image 70 of ser ies 2. There is prominent scrotal wall thickening and bilateral hydroceles. There are bilateral vasectomy clips. There are bilateral fat-containing inguinal hernias. There are mildly prominent ingu inal lymph nodes that are stable. No free fluid is evident. There are scattered colonic diverticula. There are scattered vascular calcifications. No acute osseous abnormality. IMPRESSION: 1. Stable examination. 2. Small focus of gas within the posterior right scrotal wall is stable. Scrotal wall thickening and bilateral hydrocele are stable.
[2019-10-26 11:58] LABS: Vancomycin, Trough 14.5 ug/mL
[2019-10-26] MEDS: Vancomycin 1.5 GRAM/300 ML BAG 1.5 GM in Premix Bag 1 BAG IVPB SCH ×2 (12:21→23:23)
[2019-10-26] MEDS: HumaLOG 300 UNITS/3 ML VIAL SC PRN ×2 (12:43→17:05)
[2019-10-26] MEDS: Aspirin 325 MG TAB PO SCH (20:19)
[2019-10-26] MEDS: Simvastatin 40 MG TAB PO SCH (20:19)
[2019-10-26] MEDS: Ezetimibe 10 MG TAB PO SCH (20:19)
[2019-10-26] MEDS: Zolpidem Tartrate 5 MG TAB PO SCH (20:19)
[2019-10-26] MEDS: Lisinopril 5 MG TAB PO SCH (20:20)
--- NOTE | 2019-10-26 23:34 | PRG ---
DATE OF SERVICE: 10/26/2019 SUBJECTIVE: The patient states he is feeling fine. He is having less pain. Wound Care came to see him yesterday and has applied some barrier ointments. He otherwise has not had any fevers, nausea, vomiting, chest pain, or shortness of breath. OBJECTIVE: VITAL SIGNS: Temperature 98.2, pulse 85, respirations 18, blood pressure 126/82, and saturation 94% on room air. GENERAL: No apparent distress, communicative and alert. CARDIOVASCULAR: Normal rate, irregular rhythm. Normal S1 and S2. ABDOMEN: Soft, nontender, and nondistended. Positive bowel sounds. : Scrotum is still erythematous, although less. The perineum is less indurated. There is no crepitus. Tenderness has gone down. Erythema has also gone down. EXTREMITIES: 2+ bilateral edema with stable cyanosis. LABORATORY EVALUATION: The full set of labs are in the [facility] system, which I have reviewed. Of note, the patient's white count has decreased down to 8. Hemoglobin of 17.1. IMAGING DATA: CT without contrast of the pelvis demonstrates stable gas within the perineal area, most likely introduced from patient's self-inflicted needle attempts at drainage. There is no worsening induration or evidence of Julia gangrene. ASSESSMENT AND PLAN: A 59-year-old white male with multiple comorbidities including diabetes with perineal cellulitis with no evidence of Julia gangrene. Currently, I do suspect that the air within the perineum is likely due to the patient's self-inflicted attempts to drain an abscess in the perineum. At the current time, he seems to be clinically improving with antibiotics. He is a poor surgical candidate given his heart failure, multiple MIs, multiple CVAs, as well as COPD. I would not recommend surgical intervention at this time as the patient seems to be getting better. We would recommend continued IV antibiotics and waiting for blood cultures. If all cultures are negative, he may need to be treated empirically with either Augmentin or clindamycin or some other gram-positive and anaerobic type coverage antibiotic. Infectious Disease can also be consulted if necessary for further assistance on antibiotic choice. If the patient remains stable tomorrow and once cultures are finalized, I think from my standpoint, I can probably sign off and the patient can continue antibiotics as an outpatient and follow up with me as an outpatient for final evaluation to ensure that he has cleared his infection. Job ID: [id number]
[2019-10-27 06:19] LABS: #Eosinphils 0.3 thou/uL (0.0-0.7); #Lymphocytes 1.7 thou/uL (1.20-3.40); #Monocytes 0.6 thou/uL (0.11-0.59); #Neutrophils 4.9 thou/uL (1.40-6.50); %Basophils 0.6 % (0.0-1.0); %Eosinophils 3.4 % (0.0-10.0); %Monocytes 8.2 % (0.0-10.0); %Neutrophils 64.8 % (42.0-75.0); Hemoglobin 17.9 g/dL (14.0-18.0); Mean Corpuscular HGB CONC 31.6 g/dL (32.0-36.0); Mean Corpuscular Volume 94.7 fL (78.0-98.0); Mean Platelet Volume 8.1 fL (7.4-10.4); Platelet Count 214 thou/uL (130-400); RBC Distribution Width 13.9 % (11.5-14.5); Red Blood Cell (RBC) Count 5.97 mill/uL (4.70-6.10); White Blood Cell (WBC) Count 7.6 thou/uL (4.8-10.8)
[2019-10-27] MEDS ORDERED: HumaLOG 300 UNITS/3 ML VIAL SC PRN (07:19)
--- NOTE | 2019-10-27 07:29 | PDOC.HOSPP ---
- Subjective Encounter Date: 10/26/19 Encounter Time: 11:30 Subjective: pt up in bed is hungry and wants to eat. He states that if he does not get a meal he will sign AMA. - Objective Vital Signs & Weight: Vital Signs (12 hours) Temp Pulse Resp BP Pulse Ox 10/27/19 07:22 98.2 F 97 20 124/79 94 L 10/26/19 20:20 85 10/26/19 20:00 98.2 F 85 18 126/82 94 L Weight Admit Weight 341 lb 11.2 oz Weight 341 lb 11.2 oz I&O: 10/26/19 10/27/19 10/28/19 06:59 06:59 06:59 Intake Total 1360 Output Total 600 Balance 760 Result Diagrams: 10/27/19 05:59 10/25/19 11:42 Additional Labs: Accuchecks 10/27/19 10/26/19 10/26/19 04:58 19:05 16:43 POC Glucose 191 H 193 H 190 H 10/26/19 11:43 POC Glucose 177 H Hospitalist ROS - Review of Systems Cardiovascular: denies: chest pain, palpitations, orthopnea, paroxysmal noc. dyspnea, edema, light headedness, other Gastrointestinal: denies: nausea, vomiting, abdominal pain, diarrhea, constipation, melena, hematochezia, other - Medication Medications: Active Medications Generic Name Dose Route Start Last Admin Trade Name Freq PRN Reason Stop Dose Admin Hydrocodone Bitart/Acetaminophen 1 tab 10/25/19 18:15 10/25/19 21:25 [place] 5/325 PO 1 tab Q4H PRN Administration Moderate Pain (4-6) Alogliptin Benzoate 25 mg 10/26/19 09:00 10/26/19 08:46 Alogliptin PO Not Given DAILY GAURAV Aspirin 325 mg 10/25/19 21:00 10/26/19 20:19 Aspirin PO 325 mg HS GAURAV Administration Ezetimibe 10 mg 10/25/19 21:00 10/26/19 20:19 Zetia PO 10 mg HS GAURAV Administration Furosemide 80 mg 10/26/19 09:00 10/26/19 08:46 Lasix PO 80 mg QAM GAURAV Administration Gabapentin 800 mg 10/25/19 21:00 10/26/19 20:20 Neurontin PO 800 mg HS GAURAV Administration Gabapentin 1,600 mg 10/26/19 09:00 10/26/19 08:45 Neurontin PO 1,600 mg QAM GAURAV Administration Levofloxacin 500 mg/ Device 100 mls @ 100 mls/hr 10/25/19 18:00 10/26/19 17: 05 IVPB 100 mls Q24HR GAURAV Administration Vancomycin HCl 1.5 gm/ Device 300 mls @ 200 mls/hr 10/25/19 23:59 10/26/19 23 :23 IVPB 300 mls 1200,2359 GAURAV Administration Insulin Glargine 45 units/ 0.45 mls @ 0 mls/hr 10/25/19 21:00 10/26/19 20:20 Miscellaneous Medication SC 0.45 mls BID GAURAV Administration Insulin Human Lispro 0 units 10/25/19 18:17 10/26/19 17:05 Humalog SC 2 unit .MODERATE SLIDING SC PRN Administration Moderate Correctional Scale Lisinopril 5 mg 10/25/19 21:00 10/26/19 20:20 Zestril PO 5 mg HS GAURAV Administration Metoprolol Tartrate 25 mg 10/26/19 09:00 10/26/19 08:46 Lopressor PO 25 mg QAM GAURAV Administration Simvastatin 40 mg 10/25/19 21:00 10/26/19 20:19 Zocor PO 40 mg HS GAURAV Administration Sodium Chloride 10 ml 10/25/19 17:24 10/26/19 12:22 Flush - Normal Saline IVF 10 ml PRN PRN Administration Saline Flush Zolpidem Tartrate 10 mg 10/25/19 21:00 10/26/19 20:19 Ambien PO 10 mg HS GAURAV Administration - Exam Heart: negative: RRR, no murmur, no gallops, no rubs, normal peripheral pulses, irregular, diminshed peripheral pulses, murmur present, II/IV, III/IV Respiratory: negative: CTAB, no wheezes, no rales, no ronchi, normal chest expansion, no tachypnea, normal percussion, rales, rhonchi, tachypneic, wheezes Gastrointestinal: negative: soft, non-tender, non-distended, normal bowel sounds , no palpable masses, no hepatomegaly, no splenomegaly, no bruit, no guarding, no rigidity, tender to palpation, distended, diminished bowl sounds, voluntary guarding Skin - other findings: erythema to his scrotum Hosp A/P (1) Cellulitis of scrotum Code(s): N49.2 - INFLAMMATORY DISORDERS OF SCROTUM Status: Acute (2) CAD (coronary artery disease) Code(s): I25.10 - ATHSCL HEART DISEASE OF [place] CORONARY ARTERY W/O ANG PCTRS Status: Chronic Qualifiers: Coronary Disease-Associated Artery/Lesion type: bypass graft [place] vs. transplanted heart: [place] heart Associated angina: without angina Qualified Code(s): I25.810 - Atherosclerosis of coronary artery bypass graft(s) without angina pectoris (3) CKD (chronic kidney disease) stage 3, GFR 30-59 ml/min Status: Chronic (4) DM type 2 (diabetes mellitus, type 2) Status: Chronic Qualifiers: Diabetes mellitus fpc insulin use: unspecified long term care pharmacist insulin use status Diabetes mellitus complication status: with neurologic complications Diabetes mellitus complication detail: with unspecified neuropathy Qualified Code(s): E11.40 - Type 2 diabetes mellitus with diabetic neuropathy, unspecified (5) HTN (hypertension) Code(s): I10 - ESSENTIAL (PRIMARY) HYPERTENSION Status: Chronic Qualifiers: Hypertension type: essential hypertension Qualified Code(s): I10 - Essential (primary) hypertension (6) Tobacco abuse Code(s): Z72.0 - TOBACCO USE Status: Chronic - Plan will ask urology if pt can eat. pt states " I DO NOT WANT A DIABETIC DIET, I WANT A REGULAR DIET". will continue abx
[2019-10-27] MEDS: Gabapentin 400 MG CAP PO SCH (08:09)
[2019-10-27] MEDS: Alogliptin 25 MG TAB PO SCH (08:09)
[2019-10-27] MEDS: Furosemide 80 MG TAB PO SCH (08:09)
[2019-10-27] MEDS: Metoprolol Tartrate 25 MG TAB PO SCH (08:09)
[2019-10-27] MEDS: Insulin Glargine 45 UNITS in Pre-Filled Syringe 1 EACH SC SCH (08:10)
[2019-10-27] MEDS ORDERED: Clopidogrel Bisulfate 75 MG TAB PO SCH (09:00)
--- NOTE | 2019-10-27 09:48 | PRG ---
DATE OF SERVICE: 10/27/2019 SUBJECTIVE: The patient states that he is feeling fine today. His pain is even further improved. He is not complaining of any pain really anymore. He denies any fevers, chest pain, or shortness of breath. OBJECTIVE: VITAL SIGNS: Temperature 98.2, pulse 97, respirations 20, blood pressure 124/79, and saturation 94% on room air. GENERAL: No apparent distress. Communicative and alert. CARDIOVASCULAR: Regular rate, irregular rhythm. Normal S1 and S2. ABDOMEN: Soft, nontender, and nondistended. CHEST: No increased work of breathing. Symmetric expansion of the lungs. : Scrotum is much less erythematous. It continued to have lax bilateral hydroceles, which are unchanged from prior exam. The induration of the perineum is significantly improved. Erythema is now almost completely gone. There is no crepitus or evidence of Julia gangrene. No necrosis of the tissues. EXTREMITIES: 2+ edema bilaterally with cyanosis. LABORATORY DATA: On laboratory evaluation, the patient's white count is now 7.6. ASSESSMENT AND PLAN: A 59-year-old white male with multiple comorbidities including diabetes, congestive heart failure, chronic obstructive pulmonary disease, history of myocardial infarctions with perineal cellulitis and no evidence of Julia gangrene. He continues to improve clinically on broad-spectrum antibiotics. At this point, there is no need for surgical intervention. The patient is improving significantly with medical therapy alone. He has a very poor surgical candidate and I would not consider surgical intervention unless absolutely necessary for life-threatening reasons. At which time, there is none and has not been any since his admission. As such, I will go ahead and sign off on this case. I do agree that Infectious Disease consult would be helpful. Otherwise, if not, then the patient may need to be treated with empiric antibiotics for typical cellulitis to cover gram-positive and anaerobic bacteria such as Augmentin or clindamycin for at least 10 to 14 days and he should follow up with me as an outpatient for insurance that he has completely cleared his infection. As of right now, I will go ahead and sign off. The patient can be discharged when deemed clinically fit and stable by the primary team. Job ID: [id number]
[2019-10-27 11:50] VITALS: BP 132/85; TEMP 98.1
[2019-10-27] MEDS: Vancomycin 1.5 GRAM/300 ML BAG 1.5 GM in Premix Bag 1 BAG IVPB SCH (11:51)
--- NOTE | 2019-10-27 12:07 | CON ---
DATE OF CONSULTATION: 10/27/2019 REASON FOR CONSULTATION: Scrotal abscess. HISTORY OF PRESENT ILLNESS: A 59-year-old whom I had seen a few years ago when he presented with a history of coronary artery disease, type 2 diabetes, chronic active smoking, and retinitis pigmentosa with scrotal abscess, which was drained. He remained with a large scrotal wound, which took quite a few months to heal. I saw him because of bacteremia associated with an invasive UTI secondary to Ray catheterization during that time. In 2016, he developed chest pain, which was atypical. Workup was negative. In December of this year, he was admitted with left-sided chest pain and the patient checked out against medical advice. Again, in 05/2019, he developed a TIA associated with polycythemia. He could not have an MRI because of his abdominal girth and now he comes in with scrotal inflammatory process, which he developed over the past few days. He tried to express it himself and was able to obtain some purulent exudate and then eventually things persisted and he decided to come to the hospital. He was admitted. Dr. Moya saw the patient and he had a pelvis CT scan completed without contrast, which showed a small focus of gas within the posterior right scrotal wall, which was felt to be stable, and scrotal wall thickening. Currently, Mr. Miller is awake. He does not appear in distress. Denies headaches. He has chronic amaurosis associated with retinitis pigmentosa. No sore throat, odynophagia, or dysphagia. He has chronic low back pain. Mild dyspnea on effort. No cough or sputum production or chest pain. No abdominal pain. His bladder is full at this time, but he feels the need to void. The scrotal pain has improved markedly over the past 24 hours since initiation of antimicrobial therapy. PAST MEDICAL HISTORY: Includes; 1. Scrotal abscess/Julia gangrene, which required wide debridement. 2. Type 2 diabetes. 3. Chronic smoking, still actively smoking. 4. Retinitis pigmentosa. 5. Coronary artery disease with prior MIs. 6. Prior TIA. PAST SURGICAL HISTORY: 1. Bypass graft surgery. 2. 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 3. Laminectomy in the lumbosacral spine area. 4. Shoulder operation. SOCIAL HISTORY: Lives with daughter in [place]. Current smoker. No other drug use. Drinks occasionally. ALLERGIES: PENICILLIN, SULFA DRUGS, AND AMITRIPTYLINE WITH RASH. CURRENT MEDICINES: 1. Codeine. 2. [place]. 3. Alogliptin. 4. Aspirin. 5. Plavix. 6. Flexeril. 7. Dextrose. 8. Valium. 9. Zetia. 10. Pepcid. 11. Lasix. 12. Neurontin. 13. Insulin. 14. Levofloxacin. 15. Zestril. 16. Antivert. 17. Vancomycin. PHYSICAL EXAMINATION: VITAL SIGNS: T-max 98.2, blood pressure 124/79, pulse 97, respirations 20, and O2 saturation 94. SKIN: The area on the posterior scrotal tissue at the midline with mild swelling, mild erythema. No drainage. Mild tenderness. No crepitus. No other skin lesions noted. No lymphadenopathy. HEENT: Ocular movements conjugate. Pupils are equal. Oral cavity with moist oral mucosa. No algaaciq teeth remaining in place. NECK: Supple. No jugular vein distention. LUNGS: Symmetric and clear breath sounds. HEART: S1 and S2. Regular rate. No S3 or S4. ABDOMEN: Soft, not distended or tender. No ascites. No bladder distention. EXTREMITIES: The knee arthroplasty sites without any inflammatory change. Good range of motion. Pulses are 1+ in dorsalis pedis. He is able to move extremities without any limitations. NEUROLOGIC: His cognitive function appears to be intact. LABORATORY DATA: White cell count is 11.2, down to 7.6; hemoglobin down to 17.9; and platelets 214 with normal differential. Creatinine 1.36, his baseline is 1.28. Liver profile normal. Albumin 3.8. Vancomycin trough 14.5. Microbiology with a likely contaminant in 2 different sets of blood cultures. Urine culture with the final results show 10,000 to 25,000 CFUs of mixed skin marcial. IMAGING STUDIES: As noted above. He did also have an abdomen and pelvis CT, which showed a small single focus of gas in the right perineum and swelling of the scrotal sac. ASSESSMENT: 1. Likely chronic obstructive pulmonary disease with sleep apnea. 2. Coronary artery disease. 3. Polycythemia associated with chronic smoking and likely hypoventilation syndrome/obstructive sleep apnea. 4. Inflammatory process of scrotal tissue with quick improvement after initiation of levofloxacin and vancomycin. DISCUSSION: The patient is anxious to leave the hospital, and I think he had had enough improvement and would be feasible to transition to oral doxycycline and either quinolone or third generation oral cephalosporin, such as Vantin or Cefdinir for discharge planning. Follow up in the clinic. There is a risk of recrudescence of inflammatory process since no formal drainage has been accomplished and I am afraid he is going to check out against medical advice if we would not release him. I think he is clinically safe to do that at this point in time. Job ID: [id number]
--- NOTE | 2019-10-27 19:02 | DIS ---
DATE OF ADMISSION: 10/25/2019 DATE OF DISCHARGE: 10/27/2019 DISCHARGE DIAGNOSES: 1. Scrotal cellulitis. 2. Diabetes. 3. Obesity. 4. Hypertension. HOSPITAL COURSE: The patient is a 59-year-old male, who presents to the hospital with pain and swelling of his scrotal area. The patient at this time was put on broad-spectrum antibiotics and Urology and Infectious Disease were consulted. The patient also had a CT of abdomen and pelvis, which indicated small single focus of gas in the right perineum concerning for infectious with gas-forming organism and scrotal swelling and bilateral hydrocele. He underwent a repeat pelvic CT, which was stable from his prior exam. Of note, the patient apparently a week ago had a boil around his perineal area and he used a needle on it to remove some pressure. I was told this by the urologist and I confirmed it with the patient. Urology stated that since his CT scan was stable, there was no surgical intervention. I also consulted Infectious Disease and who recommended two antibiotics. I did speak with the patient in depth about diet control, especially given his diabetes. The patient states that he wants to eat what he wants to eat. He states that he wants a regular meal in the hospital and he will continue to do that at home. The patient will follow up with Dr. Moya and Infectious Disease as outpatient. HOME MEDICATIONS: Will be: 1. Levaquin 500 mg daily for 10 days. 2. Doxycycline 100 mg twice a day for 10 days. 3. Florastor 250 mg daily. 4. Januvia 100 mg daily. 5. Metoprolol 25 mg daily. 6. Ambien 10 mg at bedtime. 7. Gabapentin 800 mg at bedtime. 8. Lisinopril 5 mg daily. 9. Meclizine 50 mg b.i.d. p.r.n. 10. . 11. Diazepam 5 to 10 mg p.o. b.i.d. 12. Lasix 80 mg q.a.m. 13. Aspirin 325 daily. 14. Clopidogrel 75 mg daily. 15. Levemir 45 units subcu b.i.d. PHYSICAL EXAMINATION: VITAL SIGNS: Temperature 98.1, pulse 96, respirations 20, 94% on room air, blood pressure 132/85. GENERAL: He is awake, alert, and oriented x3. Does not appear in any distress. CV: S1 and S2 present. No murmurs, rubs, or gallops. ABDOMEN: Soft and nontender. Bowel sounds present x2. DISCHARGE INSTRUCTIONS: Again, he will be discharged home. He will follow up with his primary. He also has polycythemia, which most likely secondary to hypoventilating from obstructive sleep apnea. I have asked him to get a sleep study, he refuses to do so. Initially, we wanted to keep the patient for the next couple of days. However, the patient was very adamant and very demanding and wanted him to be discharged today or he would leave against medical advice. Looking for the beneficial of this patient and reading the Infectious Disease note, recommended to discharge him off two antibiotics and he will have to follow up with Infectious Disease as outpatient. Job ID: [id number]
== END 2019-10-27 13:11 | disposition home or self-care (01) | DRG 728 ==
LOC: ERS 11:04 → T4-A 16:45
PROVIDERS: ADMIT Internal Medicine; ATTEND Student in an Organized Health Care Education/Training Program
DX: N49.2 Inflammatory disorders of scrotum (principal); Z68.42 Body mass index [BMI] 45.0-49.9, adult; L02.215 Cutaneous abscess of perineum; I13.0 Hypertensive heart and chronic kidney disease with heart failure and stage 1 through stage 4 chronic kidney disease, or unspecified chronic kidney disease; N43.3 Hydrocele, unspecified; I25.10 Atherosclerotic heart disease of native coronary artery without angina pectoris; E66.01 Morbid (severe) obesity due to excess calories; E11.40 Type 2 diabetes mellitus with diabetic neuropathy, unspecified; K21.9 Gastro-esophageal reflux disease without esophagitis; J44.9 Chronic obstructive pulmonary disease, unspecified; E11.22 Type 2 diabetes mellitus with diabetic chronic kidney disease; N18.3 Chronic kidney disease, stage 3 (moderate); I50.9 Heart failure, unspecified; F17.210 Nicotine dependence, cigarettes, uncomplicated; Z96.653 Presence of artificial knee joint, bilateral; G47.30 Sleep apnea, unspecified; Z95.1 Presence of aortocoronary bypass graft; I25.2 Old myocardial infarction; Z86.73 Personal history of transient ischemic attack (TIA), and cerebral infarction without residual deficits; Z88.0 Allergy status to penicillin; Z88.2 Allergy status to sulfonamides; Z95.5 Presence of coronary angioplasty implant and graft
CPT/HCPCS: 36415; 36416; 72192; 74177; 80053; 80202; 83605; 84484; 85025; 85610; 85730; 87040; 87086; 87149; 93005; J1815; J1956; J2001; J2270; J3010; J3370; J7050; Q9967

== ENCOUNTER 2020-01-12 16:22 | Inpatient (IN) | payer MEDICARE ==
[2020-01-12 16:54] LABS: #Lymphocytes 1.4 thou/uL (1.20-3.40); #Monocytes 1.5 thou/uL (0.11-0.59); #Neutrophils 11.9 thou/uL (1.40-6.50); %Basophils 0.2 % (0.0-1.0); %Eosinophils 0.2 % (0.0-10.0); %Lymphocytes 9.2 % (21.0-51.0); %Monocytes 9.9 % (0.0-10.0); %Neutrophils 80.6 % (42.0-75.0); Hemoglobin 18.7 g/dL (14.0-18.0); Mean Platelet Volume 9.1 fL (7.4-10.4); Platelet Count 215 thou/uL (130-400); Red Blood Cell (RBC) Count 6.03 mill/uL (4.70-6.10); White Blood Cell (WBC) Count 14.8 thou/uL (4.8-10.8)
--- NOTE | 2020-01-12 16:54 | RAD ---
PORTABLE CHEST ONE VIEW: 01/12/20 at 4:47 p.m. HISTORY: Altered mental status. FINDINGS/IMPRESSION: Comparison made with exam of 09/01/19. The heart is enlarged. Changes of median sternotomy again seen. Lungs are well expanded without lobar consolidation, pneumothoraces, chip pulmonary edema, or large effusions. Postop changes in the lowe r cervical spine are redemonstrated. Metallic hardware in place. POS: OFF
--- NOTE | 2020-01-12 17:03 | CT ---
CT BRAIN WITHOUT CONTRAST: 01/12/20 HYX Altered mental status. COMPARISON: 05/23/19. FINDINGS: No evidence of acute infract, hemorrhage, midline shift or abnormal extra-axial fluid collections are seen. The ventricular size is normal and the basilar cisterns patent. The bony calvarium is intact. There is mucosal disease in the paranasal sinuses. IMPRESSION: No definite evidence of significant acute intracranial process. POS: OFF
[2020-01-12 17:06] LABS: Actual Bicarbonate (HCO3a) 32.1 mEq/L (22-28); Analyzer IN Cardio ER; Base Excess (BEa) -0.8 mEq/L (-2.0 to +3.0); Calcium, Ionized 1.15 mmol/L (1.12-1.30); Carboxyhemoglobin (COHb) 3.2 gm% (0.0-3.0); Hemoglobin (Hb) 19.9 g/dL (14.0-18.0); O2 Tension (PaO2) 60.5 mmHg (80.0-100.0); Potassium - ABG Lab 5.92 mmol/L (3.70-5.30)
[2020-01-12] MEDS ORDERED: methylPREDNISolone Sod Succ/PF 125 MG/2 ML VIAL ONE (17:20)
[2020-01-12] MEDS ORDERED: Magnesium 2 GM/50 ML BAG (IN WATER) ONE (17:20)
[2020-01-12 17:22] LABS: pH, Arterial 7.17 (7.35-7.45)
[2020-01-12 17:23] LABS: Puncture Site RRA
[2020-01-12 17:28] LABS: Acetaminophen Less than 6.0 mcg/mL (10.0-30.0); Alcohol Less than 10 mg/dL (Less than 10); Salicylate Less than 8.0 mg/dL (15.0-30.0)
[2020-01-12 17:36] LABS: Potassium 6.4 mmol/L (3.5-5.1)
[2020-01-12 17:38] LABS: ALT (SGPT) 29 U/L (8-55); AST (SGOT) 29 U/L (5-34); Alkaline Phosphatase 129 U/L (40-110); Anion Gap 22 mmol/L (10-20); BUN (Urea Nitrogen) 33 mg/dL (8.4-25.7); Bilirubin, Total 0.6 mg/dL (0.2-1.2); Calc. Creatinine Clearance 0 mL/min (70-130); Calcium 8.4 mg/dL (7.8-10.44); Carbon Dioxide 25 mmol/L (22-29); Chloride 97 mmol/L (98-107); Estimated GFR-MDRD 17; Globulin 3.5 g/dL (2.4-3.5); Glucose 300 mg/dL (70-105); Lipase 54 U/L (8-78); Protein, Total 7.5 g/dL (6.0-8.3); Sodium 137 mmol/L (136-145)
[2020-01-12 17:52] LABS: CKMB 2.6 ng/mL (0-6.6)
[2020-01-12] MEDS ORDERED: Nitroglycerin 0.4 MG TAB 1 EACH ONE (17:57)
[2020-01-12] MEDS ORDERED: Insulin Regular 300 UNITS/3 ML VIAL ONE (17:57)
[2020-01-12 19:39] LABS: Actual Bicarbonate (HCO3a) 34.7 mEq/L (22-28); Analyzer IN Cardio ER; Base Excess (BEa) -0.9 mEq/L (-2.0 to +3.0); Carboxyhemoglobin (COHb) 2.8 gm% (0.0-3.0); Hemoglobin (Hb) 20.1 g/dL (14.0-18.0); O2 Tension (PaO2) 64.3 mmHg (80.0-100.0); Potassium - ABG Lab 6.42 mmol/L (3.70-5.30)
[2020-01-12 19:40] LABS: CO2 Tension 115.5 mmHg (35.0-45.0); Puncture Site RRA
[2020-01-12 19:41] LABS: ALV-art Gradient 40.875 (0-20)
[2020-01-12] MEDS ORDERED: Rocuronium Bromide 50 MG/5 ML VIAL ONE (19:46)
[2020-01-12] MEDS ORDERED: Sodium Bicarb 50 MEQ/50 ML VIAL ONE (19:53)
[2020-01-12] MEDS ORDERED: Fentanyl 100 MCG/2 ML VIAL ONE ×4 (20:20→21:14)
[2020-01-12] MEDS ORDERED: fentaNYL Citrate/PF 2,000 MCG in Sodium Chloride 0.9% 60 ML IV SCH (20:28)
[2020-01-12] MEDS ORDERED: Ondansetron PF 4 MG/2 ML Vial ONE (20:29)
[2020-01-12] MEDS ORDERED: Propofol 500 MG/50 ML VIAL ONE (20:35)
[2020-01-12] MEDS ORDERED: Propofol 1,000 MG/100 ML VIAL IV ONE (20:36)
[2020-01-12 20:38] LABS: Amphetamine Not Detected (NotDetected); Barbiturates Screen Not Detected (NotDetected); Benzodiazepine Screen Not Detected (NotDetected); Cocaine Metabolite Screen Not Detected (NotDetected); Medtox Control Line Valid? VALID (VALID); Medtox Reader # READER 1; Methadone Not Detected (NotDetected); Methamphetamine Not Detected (NotDetected); Opiate Screen Not Detected (NotDetected); Oxycodone Screen Not Detected (NotDetected); Phencyclidine (PCP) Not Detected (NotDetected); THC/Cannabinoid Screen Not Detected (NotDetected); Tricyclic Screen Not Detected (NotDetected)
[2020-01-12] MEDS ORDERED: Acetaminophen 325 MG TAB PO PRN (20:42)
--- NOTE | 2020-01-12 20:42 | RAD ---
Chest AP view INDICATION: Status post intubation COMPARISON: January 12, 2020 4:47 PM FINDINGS: Lungs:There is worsening opacity in the left lower lobe Cardiac silhouette:There is stable moderate cardiac megaly Pulmonary vasculature:Mild pulmonary vascular congestion persists Pleural spaces:Left costophrenic angle is excluded. Right pleural spaces clear. Upper abdomen:No abnormality seen. Osseous structures: No acute osseous abnormality. Additional findings:Patient is intubated with gastric catheter placement. The tip of the ET tube is s een 4.4 cm above the level of jonn. Gastric catheter projects below the left hemidiaphragm and beyond the [id number]. Post-CABG changes stable. IMPRESSION: Stable moderate cardiomegaly with mild pulmonary vascular congestion. Interval intubation with gastric catheter placement. Worsening airspace opacity in the left lower lobe may reflect subsegmental volume loss or aspiration. Continued follow-up is recommended.
[2020-01-12] MEDS ORDERED: Norepinephrine 8 MG/0.9% NS 250 ML ONE (21:17)
[2020-01-12] MEDS ORDERED: Cefepime 2 GM VIAL ONE (21:40)
[2020-01-12 21:55] LABS: Bilirubin 1+ (Negative); Blood, Urine Trace (Negative); Clarity Turbid (Clear); Glucose, Urine (Dipstick) 30 mg/dL (Negative); Leukocyte Negative Leu/uL (Negative); Mucous/LPF Rare LPF (<2+); Nitrite Negative (Negative); Protein, Urine (Dipstick) 200 mg/dL (Neg-Trace); RBC/HPF 0-3 HPF (0-3); Squamous Epithelial 0-3 HPF (0-3)
[2020-01-12 22:03] LABS: Bacteria/HPF 1+ HPF (None Seen)
[2020-01-12 22:25] LABS: Actual Bicarbonate (HCO3a) 27.1 mEq/L (22-28); Analyzer IN Cardio ER; Base Excess (BEa) 0.8 mEq/L (-2.0 to +3.0); CO2 Tension 48.4 mmHg (35.0-45.0); Calcium, Ionized 1.12 mmol/L (1.12-1.30); Carboxyhemoglobin (COHb) 2.5 gm% (0.0-3.0); Hemoglobin (Hb) 19.8 g/dL (14.0-18.0); Potassium - ABG Lab 6.96 mmol/L (3.70-5.30); pH, Arterial 7.37 (7.35-7.45)
[2020-01-12 22:26] LABS: Puncture Site LRA
[2020-01-12] MEDS ORDERED: Dextrose 5% in Water 1,000 ML IV PRN (22:37)
[2020-01-12] MEDS ORDERED: Dextrose 50% Abboject 50 ML SYRINGE SLOW IVP PRN (22:37)
[2020-01-12] MEDS ORDERED: HumaLOG 300 UNITS/3 ML VIAL SC PRN (22:37)
[2020-01-12] MEDS ORDERED: Lorazepam 2 MG/ML VIAL SLOW IVP PRN (22:44)
[2020-01-12] MEDS ORDERED: Morphine 2 MG/ML SYRINGE SLOW IVP PRN (22:44)
[2020-01-12] MEDS ORDERED: DISCONTINUE PREVIOUS NARCOTIC PAIN MEDICATIONS AND BENZODIAZEPINES FS SCH (22:44)
[2020-01-12] MEDS ORDERED: Propofol BOLUS 1,000 MG/100 ML VIAL IV PRN (22:44)
[2020-01-12] MEDS ORDERED: Fentanyl BOLUS 250 ML IVPB PRN (22:44)
[2020-01-12] MEDS ORDERED: Sodium Chloride 0.9% 1,000 ML IV SCH (22:45)
[2020-01-12] MEDS ORDERED: Norepinephrine 8 MG/0.9% NS 250 ML IVPB SCH (22:45)
[2020-01-12] MEDS ORDERED: Ventilator Sedation Protocol 1 EACH FS SCH (22:45)
--- NOTE | 2020-01-12 22:58 | RAD ---
Chest AP view INDICATION: Line placement COMPARISON: Prior exam dated 02/10/2020 at 8:36 PM FINDINGS: Lungs:The lower half of both hemithoraces are excluded. Cardiac silhouette:Excluded Pulmonary vasculature:Stable pulmonary vascular congestion Pleural spaces:No pneumothorax Upper abdomen:No abnormality seen. Osseous structures: No acute osseous abnormality. There is an ACDF involving C6-T1. Additional findings:Patient remains intubated with gastric catheter placement. There is a new left IJ central venous catheter projecting in the region of the SVC. IMPRESSION: Limited exam as above. New left IJ central venous catheter projecting in the region of th e SVC. No pneumothorax.
[2020-01-12 23:30] LABS: Anion Gap 17 mmol/L (10-20); BUN (Urea Nitrogen) 37 mg/dL (8.4-25.7); Calc. Creatinine Clearance 0 mL/min (70-130); Calcium 8.7 mg/dL (7.8-10.44); Carbon Dioxide 30 mmol/L (22-29); Chloride 96 mmol/L (98-107); Estimated GFR-MDRD 17; Glucose 359 mg/dL (70-105); Sodium 136 mmol/L (136-145)
[2020-01-12 23:34] LABS: Troponin I 0.182 ng/mL (< 0.028)
[2020-01-12] MEDS ORDERED: Nystatin Powder 15 GM BOT TOP PRN (23:47)
[2020-01-12] MEDS: Heparin 5,000 UNITS/ML VIAL SC SCH (23:51)
[2020-01-12] MEDS ORDERED: Sodium Chloride 0.9% 500 ML IV SCH (23:59)
[2020-01-12] MEDS ORDERED: Calcium Gluc 4.6 MEQ/10 ML (100 MG/ML) SLOW IVP SCH (23:59)
[2020-01-13] MEDS ORDERED: Bacteriostatic Water 30 ML VIAL FS PRN (00:06)
[2020-01-13] MEDS: Aspirin 325 MG TAB PO SCH ×2 (00:07→20:41)
[2020-01-13] MEDS: metroNIDAZOLE 500 MG in Premix Bag 1 BAG IVPB SCH ×5 (00:08→23:19)
[2020-01-13] MEDS: Insulin Regular 300 UNITS/3 ML VIAL SC PRN ×3 (00:09→20:40)
[2020-01-13] MEDS: Heparin 5,000 UNITS/ML VIAL SC SCH ×4 (00:10→15:29)
[2020-01-13] MEDS ORDERED: Heparin 5,000 UNITS/ML VIAL SC SCH (00:15)
[2020-01-13] MEDS: Sodium Chloride 0.9% 1,000 ML IV SCH ×3 (00:35→21:20)
[2020-01-13 00:56] LABS: Lactic Acid 1.9 mmol/L (0.5-2.2)
[2020-01-13] MEDS: Propofol 1,000 MG/100 ML VIAL IV PRN ×5 (01:37→20:41)
[2020-01-13] MEDS ORDERED: Vancomycin HCl 1 GM in Premix Bag 1 BAG IVPB SCH (02:00)
--- NOTE | 2020-01-13 02:19 | HP ---
CHIEF COMPLAINT: Shortness of breath. HISTORY OF PRESENT ILLNESS: This patient is a 59-year-old male with history from prior records noted to be diabetic, history of congestive heart failure with mostly diastolic dysfunction, coronary artery disease, hypertension, previous TIAs, diabetic neuropathy of the left leg, some issues with peripheral vision, and was admitted most recently here in October with early scrotal abscess. He presented to the ED reporting SOB that started today. In the ED he had a blood gas that required Bipap. Subsequent ABG was actually worse and he was becoming encephalopathic. He required intubation. No further details can be obtained from the patient. No family present now. PAST SURGICAL HISTORY: Appendectomy, tonsillectomy, bilateral knee replacements , bilateral shoulder surgery, coronary artery bypass graft x4, coronary stents x8 , and cervical spinal fixation with plate. FAMILY HISTORY: Mother had diabetes and heart disease. He is unaware of his father's history based on prior records. Psychiatric history notable for depression. SOCIAL HISTORY: The patient reportedly is a non drug user, nondrinker. He, in October, reported smoking two packs of cigarettes per day and that time lived with aunt and his daughter. CURRENT MEDICATIONS: Per the ER list: 1. Aspirin 81 mg daily. 2. Lisinopril 2.5 mg daily. 3. Lasix 80 mg daily. 4. Metoprolol 25 mg daily. 5. Plavix 75 mg daily. 6. Pramipexole 0.75 mg two p.o. daily. 7. Vytorin 10/40 one p.o. at bedtime. 8. Januvia 100 mg daily. 9. Gabapentin 600 mg t.i.d. 10. Zolpidem 10 mg daily. 11. Ropinirole 2 mg one daily. 12. Albuterol inhaler q.4 hours p.r.n. 13. Valium 5 mg 1 to 2 q.8 hours p.r.n. 14. Albuterol inhaler p.r.n. 15. Levemir FlexPen 45 units subcu b.i.d. 16. Humalog pen sliding scale t.i.d. 17. Pantoprazole 40 mg one p.o. b.i.d. ALLERGIES: AMITRIPTYLINE, PENICILLIN, SULFA, AND COCONUT. PHYSICAL EXAMINATION: VITAL SIGNS: Most recent recorded vitals; BP 99/58, pulse 68, respirations 22, O2 saturation 90% on ventilator. GENERAL APPEARANCE: The patient is morbidly obese. He is sedated, ventilated, unresponsive due to sedation. HEENT: Pupils are pinpoint and symmetric bilaterally. He has oral intubation, has moist oral mucosa. NECK: Thick. HEART: Regular without murmurs, gallops, or rubs. LUNGS: Diminished but clear with no wheezes or rales noted. ABDOMEN: Obese, soft, nondistended. Bowel sounds are diminished. There are no palpable masses. EXTREMITIES: Reveal no significant cyanosis, clubbing, or edema. No erythematous changes. PSYCH: Unattainable. NEUROLOGICAL: Unattainable. LABORATORY DATA: White count 14.8, hemoglobin 18.7, platelets 215. Sodium 137, potassium 6.4, chloride 97, CO2 of 25, BUN 33, creatinine 3.37, glucose 300, lactic acid 2.2, calcium 8.4, AST 29, ALT 29, alkaline phosphatase 129, ammonia 34, troponin 0.146. BNP 506, lipase 54, albumin 3.5, TSH 1.1239. Drug screen negative. Alcohol negative. Urinalysis shows 1+ bilirubin, 4-6 white cells, 0-3 red cells, nitrite negative, leukocyte esterase negative. Initial blood gases, pH 7.17, pCO2 of 91, PO2 of 16, bicarb of 32. Most recent blood gas, pH 7.37, pCO2 is 48.4, pO2 is 56, and bicarb 27. EKG shows some nonspecific inferiorly changes. IMPRESSION AND PLAN: 1. Acute hypoxic hypercapnic respiratory failure. The patient is now on the ventilator and appropriately sedated. He will be going to the ICU. Discussed case with Dr. Siddiqui, concern for possible newly developed infiltrate on the left lower lobe on chest x-ray and also concern for possible chronic obstructive pulmonary disease exacerbation or underlying cardiac issues. 2. Possible sepsis with left lower lobe pneumonia. The patient will be covered with broad-spectrum antibiotics including vancomycin, cefepime, and Flagyl to ensure recovering for possible aspiration. Blood cultures obtained. 3. Acute renal failure. The patient has a history of chronic kidney disease with a GFR in the 50s, making it chronic kidney disease stage 3. However, presently, his GFR is at 17. His BUN to creatinine ratio would suggest parenchymal disease likely related to chronic blood pressure and uncontrolled diabetes. He has been hydrated. We will see where his numbers do from there. If they do not improve, may need renal ultrasound and nephrology consult. 4. Severe hyperkalemia, likely due to renal insufficiency. Again, getting hydrated, requesting a repeat of those now. 5. Elevated troponin, unclear etiology, could be simply type 2 [id number] myocardial infarction with demand ischemia from hypotension. We will continue to trend those out. We will get an echocardiogram and cardiology consult. 6. Elevated BNP. The patient has a history of diastolic dysfunction with preserved systolic ejection fraction. We will again follow up on repeat echocardiogram. 7. Diabetes mellitus, uncontrolled. We will give sliding scale insulin and Accu-Cheks. 8. Hypotension, unclear etiology, could be related to intubation, more likely is a respiratory failure. He is currently on pressors. We will continue with the Levophed drip. 9. The patient does have a history of dilated aortic root at 4 cm. We will reassess that with the echocardiogram. 10. Coronary artery disease. Again, monitoring troponins and cardiology consult. Job ID: [id number] [facility]
[2020-01-13 03:00] LABS: Hemoglobin 18.6 g/dL (14.0-18.0); Lymphocytes 5 % (21-51); MDiff Complete? YES; Mean Corpuscular HGB CONC 32.2 g/dL (32.0-36.0); Mean Corpuscular Hemoglobin 31.5 pg (27.0-31.0); Mean Corpuscular Volume 97.7 fL (78.0-98.0); Mean Platelet Volume 8.9 fL (7.4-10.4); Monocytes 5 % (0-10); Neutrophil 90 % (42-75); Platelet Count 263 thou/uL (130-400); Platelet Morphology Comment Appears Adequate; Red Blood Cell (RBC) Count 5.92 mill/uL (4.70-6.10); White Blood Cell (WBC) Count 21.2 thou/uL (4.8-10.8)
[2020-01-13 03:01] LABS: Potassium 6.9 mmol/L (3.5-5.1)
[2020-01-13 03:08] LABS: Troponin I 0.246 ng/mL (< 0.028)
[2020-01-13 03:16] LABS: ALT (SGPT) 27 U/L (8-55); AST (SGOT) 31 U/L (5-34); Albumin 3.8 g/dL (3.5-5.0); Alkaline Phosphatase 124 U/L (40-110); Anion Gap 17 mmol/L (10-20); BUN (Urea Nitrogen) 39 mg/dL (8.4-25.7); Bilirubin, Total 1.3 mg/dL (0.2-1.2); Calc. Creatinine Clearance 55 mL/min (70-130); Calcium 9.1 mg/dL (7.8-10.44); Carbon Dioxide 26 mmol/L (22-29); Chloride 97 mmol/L (98-107); Estimated GFR-MDRD 19; Globulin 3.4 g/dL (2.4-3.5); Glucose 422 mg/dL (70-105); Potassium 6.8 mmol/L (3.5-5.1); Protein, Total 7.2 g/dL (6.0-8.3); Sodium 133 mmol/L (136-145)
--- NOTE | 2020-01-13 03:36 | CON ---
DATE OF CONSULTATION: 01/12/2020 SERVICE: Pulmonary Medicine. REASON FOR CONSULTATION: Respiratory failure. HISTORY OF PRESENT ILLNESS: The patient is a 59-year-old white male with past medical history significant for peripheral vascular disease, coronary artery disease, and diabetes who presents to the hospital with what he claims to be a fairly abrupt onset of difficulty breathing. On presentation, he was short of breath and his sats were in the mid to low 70s. He was placed on 1-2 L of nasal cannula, his saturations popped up to the upper 80s and low 90s. That being said, he was checked on later on. He became increasingly somnolent. An ABG was performed demonstrating an acute hypercapnic respiratory failure, superimposed on top of a hypoxic respiratory failure. He was put on BiPAP and later on, repeat ABG was performed demonstrating that he would clearly fail the BiPAP. As such, he was intubated and put on mechanical ventilation. He cannot provide much in the way of additional history. He is a little bit somnolent, but can yet nod yes and no appropriately. He very clearly suggested to me that this shortness of breath episode could come on him over fairly abrupt/short period time. He tells me that he has not been sick for the last couple of days, and denies having any recent wheezing, fevers, chills, or sputum production. On mechanical ventilator, he has a slightly prolonged expiratory phase, but it is not horrendous. Repeat ABG demonstrated near-complete resolution in his hypercapnic failure. I cannot get much other history from him, because he is currently on the ventilator and requiring a little sedation to stay comfortable. ASSESSMENT: 1. Type 2 diabetes mellitus. 2. Coronary artery disease. 3. Chronic systolic and diastolic heart failure. 4. Hypertension. 5. Dyslipidemia. 6. Neuropathy secondary to diabetes. PAST SURGICAL HISTORY: 1. Appendectomy. 2. Tonsillectomy. 3. Knee replacements, bilateral. 4. Shoulder surgery, bilateral. 5. Coronary artery bypass graft x4 vessels. 6. History of percutaneous coronary intervention with multiple stent placed. 7. C-spine surgery with hardware in place. FAMILY HISTORY: Noncontributory. SOCIAL HISTORY: Negative for alcohol, tobacco, or illicit drug use. He smokes two packs of cigarettes on a daily basis, and has greater than a 50 pack-year history of smoking. ALLERGIES: PENICILLIN, SULFA, AMITRIPTYLINE, COCONUT. MEDICATIONS: List of his inpatient medications was reviewed. No specific updates were made at this time. REVIEW OF SYSTEMS: This cannot be obtained as the patient is currently intubated and sedated. PHYSICAL EXAMINATION: VITAL SIGNS: Afebrile, pulse 65, respirations 18, saturation 94% on 50% FiO2 and a PEEP of 8, blood pressure 114/65. HEENT: Normocephalic. Sclerae white. Conjunctivae pink. Oral mucosa is moist without lesions. LUNGS: Decent air entry with a slightly prolonged expiratory phase. Dependently, minimal crackling is present. There is a slightly prolonged expiratory phase, but I do not hear any obvious wheezing. Rhonchi are not present. HEART: Normal rate. Regular. ABDOMEN: Soft. No rebound or guarding is present. Bowel sounds are hypoactive. GENITOURINARY: Ray catheter in place. NEUROLOGIC: Grossly nonfocal. He is moving all 4 extremities. MUSCULOSKELETAL: No cyanosis or clubbing. There is 1+ pitting in the bilateral lower extremities. LABORATORY DATA: WBC 14.8, hemoglobin 18.7, platelets 215,000. INR 0.9 historically. pH 7.17, pCO2 91, which got worse before until most recently, where he had a pH of 7.37, pCO2 48, pO2 56. Creatinine 3.73, above baseline of 1.4, BUN 33, bicarb 25. Potassium 6.4. Liver function studies are unremarkable. BNP 506, troponin 0.143, TSH 1.2, ammonia 34, lactate 2.2. Urinalysis is essentially unremarkable. Toxicology screen is negative including urine drug screen, alcohol, acetaminophen, and salicylates. IMAGIN. Chest x-ray demonstrates significant soft tissue attenuation. That being said, I do not see any overt consolidating lesions, or pulmonary vascular congestion. The mediastinal silhouette is generous in width. Cardiomegaly is clearly evident. Endotracheal tube is in good position, and there is an enteric catheter coursing midline below the level of the diaphragm. Left IJ is in good position. 2. CT of the brain demonstrates no acute intracranial abnormality. ASSESSMENT: 1. Acute hypoxic respiratory failure. 2. Shock, etiology unknown. 3. Acute kidney injury on chronic kidney disease 3. 4. Acute hypercapnic respiratory failure, significantly improved. 5. Metabolic encephalopathy, resolving. 6. Non-ST elevation myocardial infarction, likely secondary to demand. 7. Chronic obstructive pulmonary disease with acute exacerbation, possible. DISCUSSION AND PLAN: We will continue supportive medications including nebulized medications, antibiotics and steroids through time. We will wean away his FiO2 as tolerated. I am going to get a stat D-dimer. If this is significantly elevated and/or an ultrasound of bilateral lower extremities has any evidence of clot, empiric therapy for a PE will be initiated. He tells me that his respiratory failure was abrupt onset. The only piece of information that would refute this idea is that his creatinine is well over 3, which should have taken a couple of days to take to get worse with low blood pressure. Blood cultures x2, and urine culture are currently pending. We will trend troponins and repeat an EKG. If there is significant increase in ST changes among the anterior leads, cardiology consultation will be placed. Levophed will be weaned through time, if tolerated. We will keep him comfortable with sedation this evening. Hopefully, we will have a better appreciation for the underlying etiology of his presentation in the next 24 to 48 hours. CRITICAL CARE TIME: 30 minutes. Job ID: [id number]
[2020-01-13 05:19] LABS: Potassium 6.6 mmol/L (3.5-5.1)
[2020-01-13] MEDS ORDERED: [UNRECOGNIZED DRUG - REMARK] FS SCH (06:00)
--- NOTE | 2020-01-13 06:47 | ULT ---
DOPPLER VENOUS ULTRASOUND OF BOTH LOWER EXTREMITIES: Date: 01/13/2020 INDICATION: History of bilateral lower extremity edema. TECHNIQUE: Moreno scale, color Doppler, and vascular duplex with spectral analysis was performed of the deep venou s structures of the bilateral lower extremities. The common femoral vein, superficial femoral vein, p roximal greater saphenous vein, proximal greater profunda vein, popliteal, and posterior tibial veins were assessed. FINDINGS: There is normal compression, flow, and augmentation seen within the deep venous structures of the lef t lower extremity. There is normal compression, flow, and augmentation seen within the right common femoral vein, superf icial femoral vein, right popliteal vein, and right proximal greater saphenous vein. There is a parti ally occlusive thrombus seen within the right mid posterior tibial vein. IMPRESSION: 1. Partially occlusive thrombus within the right posterior tibial vein. 2. No additional deep venous thrombosis demonstrated. POS: BH
[2020-01-13] MEDS: Cefepime 1 GM in Sodium Chloride 0.9% 100 ML IVPB SCH ×2 (08:15→20:41)
[2020-01-13] MEDS: Clopidogrel Bisulfate 75 MG TAB PO SCH (08:16)
[2020-01-13] MEDS: Pantoprazole 40 MG VIAL IVP SCH ×2 (08:17→20:42)
[2020-01-13] MEDS: Metoprolol Tartrate 25 MG TAB PO SCH (08:17)
[2020-01-13 08:41] LABS: Actual Bicarbonate (HCO3a) 25.2 mEq/L (22-28); Analyzer IN Cardio OR; Base Excess (BEa) -2.9 mEq/L (-2.0 to +3.0); CO2 Tension 56.1 mmHg (35.0-45.0); Calcium, Ionized 1.18 mmol/L (1.12-1.30); Carboxyhemoglobin (COHb) 1.7 gm% (0.0-3.0); Hemoglobin (Hb) 18.6 g/dL (14.0-18.0); O2 Tension (PaO2) 71.6 mmHg (80.0-100.0); Potassium - ABG Lab 5.29 mmol/L (3.70-5.30); pH, Arterial 7.27 (7.35-7.45)
--- NOTE | 2020-01-13 08:44 | PRG ---
DATE OF SERVICE: 01/13/2020 SUBJECTIVE: Vadim Miller is a morbidly obese gentleman, who apparently failed BiPAP yesterday. He is intubated in the vent in the ICU. OBJECTIVE: VITAL SIGNS: He is awake this morning. Pulse 98, blood pressure 120/76, sats are 96%, respiratory rate 18. CHEST: Diffuse wheezing. CARDIAC: Normal S1, S2. No gallops. ABDOMEN: No masses. EXTREMITIES: Trace edema. His x-ray shows evidence of cardiomegaly but I do not see an obvious infiltrate. LABORATORY DATA: White count is 21,000, H and H 18 and 57. Platelet count is normal. PO2 of 56, pCO2 40, pH 7.37. BUN is 39, creatinine 3.36, potassium 6.6. ASSESSMENT AND PLAN: Acute on chronic respiratory failure, marked respiratory acidosis, failed BiPAP, morbid obesity, recurrent scrotal infection. Continue aggressive neb treatments, steroids, antibiotics. Wean when stable. 1-1/2 hour of critical time. Job ID: [id number]
[2020-01-13 08:57] LABS: Puncture Site RRA
[2020-01-13 08:58] LABS: ALV-art Gradient 179.125 (0-20)
[2020-01-13] MEDS ORDERED: methylPREDNISolone Sod Succ 40 MG VIAL IVP SCH (09:00)
[2020-01-13] MEDS ORDERED: FLU VACC QS2019-20(6MOS UP)/PF 60 MCG/0.5 ML SYRINGE IM ONE (09:00)
--- NOTE | 2020-01-13 09:45 | PDOC.HOSPP ---
- Subjective Encounter Date: 01/13/20 Subjective: Patient on the Vent. - Objective Vital Signs & Weight: Vital Signs (12 hours) Temp Pulse Resp BP Pulse Ox 01/13/20 08:00 19 01/13/20 07:00 99.9 F H 01/13/20 06:34 85 110/64 01/13/20 06:32 84 17 96 01/13/20 06:00 17 01/13/20 04:00 17 01/13/20 03:00 99.6 F 01/13/20 02:00 17 01/13/20 00:53 81 17 96 01/13/20 00:00 17 01/12/20 23:19 96 01/12/20 23:10 100.4 F H 17 Weight Weight 359 lb 2.128 oz Most Recent Monitor Data Heart Rate from ECG 98 NIBP 126/71 NIBP BP-Mean 89 Respiration from ECG 14 SpO2 95 I&O: 01/12/20 01/13/20 01/14/20 06:59 06:59 06:59 Intake Total 1349 Output Total 845 255 Balance 504 -255 Result Diagrams: 01/13/20 02:32 01/13/20 04:49 Hospitalist ROS - Medication Medications: Active Medications Generic Name Dose Route Start Last Admin Trade Name Freq PRN Reason Stop Dose Admin Albuterol/Ipratropium 3 ml 01/13/20 01:00 01/13/20 06:32 Duoneb NEB 3 ml [id number] GAURAV Administration Aspirin 325 mg 01/12/20 21:00 01/13/20 00:07 Aspirin PO 325 mg HS GAURAV Administration Clopidogrel Bisulfate 75 mg 01/13/20 09:00 01/13/20 08:16 Plavix PO 75 mg QAM GAURAV Administration Heparin Sodium (Porcine) 5,000 units 01/13/20 09:00 01/13/20 08:17 Heparin SC 5,000 units TID GAURAV Administration Metronidazole 500 mg/ Device 100 mls @ 100 mls/hr 01/12/20 23:59 01/13/20 05: 12 IVPB 100 mls Q6HR GAURAV Administration Cefepime HCl 1 gm/ Sodium 100 mls @ 200 mls/hr 01/13/20 09:00 01/13/20 08:15 Chloride IVPB 100 mls Q12HR GAURAV Administration Norepinephrine Bitartrate 250 mls @ 0 mls/hr 01/12/20 22:45 01/13/20 08:18 Levophed IVPB 250 mls INF GAURAV Administration Protocol Titrate Sodium Chloride 1,000 mls @ 100 mls/hr 01/13/20 00:30 01/13/20 08:19 Normal Saline 0.9% IV 1,000 mls .Q10H GAURAV Administration Insulin Human Regular 0 units 01/12/20 22:37 01/13/20 03:20 Humulin R SC 5 unit .BEDTIME SLIDING SC PRN Administration Bedtime Correctional Scale Metoprolol Tartrate 25 mg 01/13/20 09:00 01/13/20 08:17 Lopressor PO 25 mg QAM GAURAV Administration Pantoprazole Sodium 40 mg 01/13/20 09:00 01/13/20 08:17 Protonix IVP 40 mg Q12HR GAURAV Administration Propofol 1,000 mg 01/12/20 22:44 01/13/20 08:49 Diprivan IV 02/11/20 22:44 1,000 mg INF PRN Administration TO ACHIEVE GOAL RASS Protocol - Exam Eye: anicteric sclera ENT: normocephalic atraumatic Heart: RRR, no murmur, no gallops, no rubs Respiratory: normal chest expansion, wheezes Gastrointestinal: soft, non-tender, normal bowel sounds Extremities: no cyanosis Hosp A/P (1) Acute respiratory failure with hypoxia Code(s): J96.01 - ACUTE RESPIRATORY FAILURE WITH HYPOXIA Status: Acute Plan: Continue ventilator management per pulmonology. Due to pneumonia and copd exacerbation. (2) LLL pneumonia Code(s): J18.9 - PNEUMONIA, UNSPECIFIED ORGANISM Status: Acute Plan: Continue broad spectrum antibiotics. (3) Septic shock Code(s): A41.9 - SEPSIS, UNSPECIFIED ORGANISM; R65.21 - SEVERE SEPSIS WITH SEPTIC SHOCK Status: Acute Plan: Continue Levophed and titrate for MAP>65 (4) Acute kidney injury superimposed on chronic kidney disease Code(s): N17.9 - ACUTE KIDNEY FAILURE, UNSPECIFIED; N18.9 - CHRONIC KIDNEY DISEASE, UNSPECIFIED Status: Acute Plan: Baseline creatinine 1.4. ARF with hyperkalemia likely due to ATN related to septic shock. Management of hyperkameia as below. Dr. Preeti Vallejo consulted. (5) Hyperkalemia Code(s): E87.5 - HYPERKALEMIA Status: Acute Plan: Slightly improved with insulin, kayxalate and albuterol. Give Calcium gluconate due to ekg changes. Start IV bumex. continue to follow K levels. (6) Uncontrolled diabetes mellitus Code(s): E11.65 - TYPE 2 DIABETES MELLITUS WITH HYPERGLYCEMIA Status: Acute Plan: On aggressive sliding scale. Hyperglycemia worse with steroids. Start lantus 40 u daily.( Pt is on 45 levemir bid at home. I will not start with this dose due to NPO status) (7) Demand ischemia Code(s): I24.8 - OTHER FORMS OF ACUTE ISCHEMIC HEART DISEASE Status: Acute Plan: Likely due to sepsis and hypoxia (8) COPD exacerbation Code(s): J44.1 - CHRONIC OBSTRUCTIVE PULMONARY DISEASE W (ACUTE) EXACERBATION Status: Acute Plan: Continue nebulizer treatments, antibiotics, and corticosteroids. (9) Diastolic CHF, acute on chronic Code(s): I50.33 - ACUTE ON CHRONIC DIASTOLIC (CONGESTIVE) HEART FAILURE Status : Acute Plan: Buemx as above. - Plan 35 min of critical care time spent in evaluating and managing this paitent.
[2020-01-13] MEDS ORDERED: Heparin 10,000 UNITS/ 10 ML VIAL ONE (09:57)
[2020-01-13] MEDS: Bumetanide 1 MG/4 ML VIAL IVP SCH ×2 (10:49→21:48)
[2020-01-13] MEDS: methylPREDNISolone Sod Succ 40 MG VIAL IVP SCH ×3 (11:05→23:19)
[2020-01-13 11:45] LABS: Potassium 6.2 mmol/L (3.5-5.1)
[2020-01-13] MEDS ORDERED: Calcium Gluc 4.6 MEQ/10 ML (100 MG/ML) SLOW IVP SCH (12:00)
--- NOTE | 2020-01-13 14:10 | CON ---
DATE OF CONSULTATION: REASON FOR CONSULTATION: Hyperkalemia. HISTORY OF PRESENT ILLNESS: This is a well-known 59-year-old gentleman, who presented to the hospital late last night for respiratory failure. The patient was noted to have a potassium of 6.6, and I was consulted earlier today. The patient cannot give history as he is intubated. PAST MEDICAL HISTORY: Significant for diabetes mellitus, hypertension, coronary artery disease, congestive heart failure, neuropathy, appendectomy, tonsillectomy, knee surgery, shoulder surgery, CABG, stent placements, and C-spine surgery. FAMILY HISTORY: Noncontributory. SOCIOECONOMIC HISTORY: Unknown. ALLERGIES: REVIEWED. MEDICATIONS: Home medications list, reviewed. Hospital medications list, reviewed. REVIEW OF SYSTEMS: Unobtainable. PHYSICAL EXAMINATION: GENERAL: The patient is resting. VITAL SIGNS: Afebrile, pulse 75, breathing 16, blood pressure 114/65. GENERAL APPEARANCE AND MENTAL STATUS: Fair. HEAD/NECK: Normocephalic. Atraumatic. EYES: EOMI. No deformity. EARS: Clear. No ulcers. NOSE: Intact. No lesions. MOUTH: Clear. No discharge. THROAT: Clear. No exudate. LUNGS: Clear. No crackles. CARDIAC: S1, S2. No rub. ABDOMEN: Benign. Bowel sounds positive. GENITALIA/RECTUM: Ray present. BACK/EXTREMITIES: Edema 0+. NEUROLOGICAL: Alert and motor intact. The patient moves all 4 extremities. SKIN: LYMPHATICS: LABORATORY DATA: Show potassium 6.2. ASSESSMENT AND PLAN: 1. Acute kidney injury with chronic kidney disease, stage 4, most likely due to decreased effective arterial blood volume. Continue hydration. The patient also has underlying sepsis. 2. Hyperkalemia. Plan urgent dialysis. This was discussed with the patient's son. 3. Anemia, stable. 4. Medication based on GFR, appropriate. 5. Sepsis. Overall prognosis is very poor. Job ID: [id number]
[2020-01-13] MEDS ORDERED: Labetalol HCl 100 MG/20 ML VIAL ONE (14:19)
[2020-01-13] MEDS: HumaLOG 300 UNITS/3 ML VIAL SC PRN (16:44)
--- NOTE | 2020-01-13 19:15 | CON ---
DATE OF CONSULTATION: 01/13/2020 REASON FOR CONSULTATION: Respiratory insufficiency. HISTORY OF PRESENT ILLNESS: Mr. Miller is a pleasant 59-year-old white gentleman, who comes to the hospital for shortness of breath. He was found to be hypercapnic and hypoxic. He failed BiPAP and eventually had to be intubated. He was also found to have kidney worsening of his renal dysfunction with creatinine in the 3 range and very high potassium up to 7.0. He is currently in the ICU, sedated and intubated. He cannot give much history. PAST MEDICAL HISTORY: 1. Ischemic cardiomyopathy. 2. Last LV function was 43% on a stress test done in August of last year in the office. At that time, he had a large apical and lateral wall scar. 3. Multiple stents placed in 2001, 2003, 2009. He has stents to the LAD and a second diagonal branch and a distal ramus. Eventually underwent 3-vessel bypass in 2012. Last catheterization was in 2014 and had patent vein grafts and the WALKER to the diagonal branch. 4. Sleep apnea. 5. Osteoarthritis. 6. Chronic back pain. 7. Type 2 diabetes. 8. Bilateral retinitis pigmentosa. SURGICAL HISTORY: 1. Tonsillectomy. 2. Deviated septum repair, this was done in 1996. 3. CABG x4 in 2006. 4. Hernia repair in 1996. 5. Right knee replacement in 2008, left in 2008. 6. Left rotator cuff repair. 7. Cervical diskectomy. 8. Mid LAD stent in 2015. OUTPATIENT MEDICATIONS: 1. Aspirin 325 a day. 2. Plavix 75 mg a day. 3. Ezetimibe/simvastatin 10/40 daily. 4. Furosemide 80 mg a day. 5. Gabapentin 100 mg 2 tablets in the morning and one in the evening. 6. Januvia 100 mg a day. 7. Lisinopril 5 mg a day. 8. Metoprolol 25 mg b.i.d. 9. Ropinirole. 10. Ambien p.r.n. ALLERGIES: 1. PENICILLIN. 2. BACTRIM. 3. AMITRIPTYLINE, GIVES AN UPSET STOMACH. SOCIAL HISTORY: Continues to smoke. No alcohol or drugs. He smokes 2 packs a day. REVIEW OF SYSTEMS: Unobtainable as patient is sedated and intubated. PHYSICAL EXAMINATION: VITAL SIGNS: Temperature 99.9, however, the highest has been is 100.4, this was yesterday's overnight; pulse 93, respiratory rate 17, saturating 95% on 40% FiO2. On the ventilator. Sedated and intubated. NECK: Supple. LUNGS: Coarse breath sounds anteriorly. CARDIOVASCULAR: Distant heart sounds, but S1, S2. ABDOMEN: Soft with positive bowel sounds. EXTREMITIES: Trace edema. SKIN: Warm and dry. LABORATORY DATA: Laboratory work was reviewed. CBC with a white count of 21, hemoglobin of 18, hematocrit 58, platelet count 263. Coags, D-dimer was high at 1.1. Blood gas was reviewed. Chemistries were reviewed. Potassium as high as 7.0, down to 6.2. TSH was low. Troponin has been in the indeterminate range at 0.14, 0.18, and 0.24. BUN of 39, creatinine 3.31, GFR was 19, glucose was 422. UA was reviewed. UDS is all negative. Plasma alcohol is negative. EKG was reviewed. ASSESSMENT AND PLAN: 1. Acute hypoxic and hypercapnic respiratory insufficiency. Requiring mechanical ventilation. 2. [id number]-[id number] myocardial infarction, type 2, World Health Organization type of myocardial infarction. 3. Acute kidney injury on chronic kidney disease. 4. Hyperkalemia, refractory to medical therapy. 5. Ischemic cardiomyopathy, last known ejection fraction at 43%. PLAN: 1. Agree with dialysis for reduction of potassium which is not responding to medical therapy. 2. Echocardiogram pending. 3. Lasix and IV fluids are being given at this time to try to get this potassium in line. This has worked but minimally. 4. Continue supportive care for now. 5. No indication for full anticoagulation at this time given his troponin elevation is most likely related to his current severe illness. 6. The patient is severely ill and would not be unexpected. 7. 45 minutes critical care time. Job ID: [id number]
[2020-01-13 22:54] LABS: HBSAB Concentration 1.58 mIU/mL; HBSAg Index 0.22 S/CO (0-0.99); Hep B Core Total Ab Non-Reactive (NonReactive); Hep B Core Total Index 0.08 S/CO (0-0.79); Hep B Surf AB Non-Reactive (NonReactive); Hep B Surf Ag Non-Reactive S/CO (NonReactive)
[2020-01-14] MEDS: Propofol 1,000 MG/100 ML VIAL IV PRN ×2 (01:01→05:10)
[2020-01-14 04:54] LABS: #Lymphocytes 0.7 thou/uL (1.20-3.40); #Monocytes 0.5 thou/uL (0.11-0.59); #Neutrophils 11.9 thou/uL (1.40-6.50); %Eosinophils 0.1 % (0.0-10.0); %Lymphocytes 5.6 % (21.0-51.0); %Monocytes 3.4 % (0.0-10.0); %Neutrophils 90.8 % (42.0-75.0); Hemoglobin 16.5 g/dL (14.0-18.0); Mean Corpuscular HGB CONC 32.3 g/dL (32.0-36.0); Mean Corpuscular Hemoglobin 31.2 pg (27.0-31.0); Mean Corpuscular Volume 96.5 fL (78.0-98.0); Mean Platelet Volume 9.5 fL (7.4-10.4); Platelet Count 153 thou/uL (130-400); RBC Distribution Width 14.8 % (11.5-14.5); White Blood Cell (WBC) Count 13.1 thou/uL (4.8-10.8)
[2020-01-14] MEDS: metroNIDAZOLE 500 MG in Premix Bag 1 BAG IVPB SCH ×4 (05:05→23:56)
[2020-01-14] MEDS: HumaLOG 300 UNITS/3 ML VIAL SC PRN ×4 (05:05→17:07)
[2020-01-14] MEDS: methylPREDNISolone Sod Succ 40 MG VIAL IVP SCH ×4 (05:05→23:57)
[2020-01-14 05:18] LABS: Anion Gap 14 mmol/L (10-20); BUN (Urea Nitrogen) 30 mg/dL (8.4-25.7); Calc. Creatinine Clearance 96 mL/min (70-130); Calcium 8.5 mg/dL (7.8-10.44); Carbon Dioxide 27 mmol/L (22-29); Chloride 101 mmol/L (98-107); Estimated GFR-MDRD 36; Glucose 318 mg/dL (70-105); Potassium 5.3 mmol/L (3.5-5.1); Sodium 137 mmol/L (136-145)
[2020-01-14 07:07] LABS: Actual Bicarbonate (HCO3a) 26.3 mEq/L (22-28); Base Excess (BEa) -0.1 mEq/L (-2.0 to +3.0); CO2 Tension 48.7 mmHg (35.0-45.0); Calcium, Ionized 1.19 mmol/L (1.12-1.30); Carboxyhemoglobin (COHb) 0.5 gm% (0.0-3.0); Hemoglobin (Hb) 16.3 g/dL (14.0-18.0); O2 Tension (PaO2) 68.7 mmHg (80.0-100.0); Potassium - ABG Lab 4.79 mmol/L (3.70-5.30); pH, Arterial 7.35 (7.35-7.45)
[2020-01-14 07:08] LABS: ALV-art Gradient 191.275 (0-20); Puncture Site RRA
--- NOTE | 2020-01-14 08:43 | PRG ---
DATE OF SERVICE: 01/14/2020 SUBJECTIVE: This morning, he was intubated on the vent. He is more awake, responsive. X-ray is clear. OBJECTIVE: VITAL SIGNS: Pulse 86, blood pressure 113/63, saturations are 90%, and respiratory rate 16. I's and O's have been even. CHEST: Decreased breath sounds. No wheezing. CARDIAC: Normal S1 and S2. No gallops. ABDOMEN: No masses. LABORATORY DATA: PO2 of 68, pCO2 of 48, pH of 7.35. White count 13,000, BUN and creatinine are 30 and 1.90. ASSESSMENT: 1. Acute on chronic respiratory failure. 2. Morbid obesity. 3. Azotemia, much improved. 4. Diabetes. PLAN: We are going to try and wean and hopefully extubate today. Continue otherwise aggressive antibiotics, neb treatments, and steroids. All cultures are negative. I am going to discontinue his vancomycin. This is one-half hour of critical care time. Job ID: [id number]
[2020-01-14] MEDS ORDERED: Insulin Glargine 20 UNITS in Pre-Filled Syringe 1 EACH SC SCH (09:00)
[2020-01-14] MEDS: Cefepime 1 GM in Sodium Chloride 0.9% 100 ML IVPB SCH ×3 (09:30→22:02)
[2020-01-14] MEDS: Bumetanide 1 MG/4 ML VIAL IVP SCH ×3 (09:30→22:03)
[2020-01-14] MEDS: Pantoprazole 40 MG VIAL IVP SCH (09:30)
[2020-01-14] MEDS: Heparin 5,000 UNITS/ML VIAL SC SCH ×4 (09:30→22:02)
--- NOTE | 2020-01-14 09:40 | RAD ---
SINGLE VIEW OF THE CHEST: Comparison: 01-12-2020 History: Ventilated patient with respiratory failure. FINDINGS: Single view of the chest shows an enlarged cardiomediastinal silhouette. Patient is status post garay otomy. The lines and tubes are unchanged in position. There is no evidence of consolidation, mass or pleural effusion. IMPRESSION: Stable exam. POS: [facility]
[2020-01-14 10:05] LABS: Potassium 4.6 mmol/L (3.5-5.1)
--- NOTE | 2020-01-14 10:11 | OP ---
DATE OF PROCEDURE: 01/13/2020 PREOPERATIVE DIAGNOSES: 1. Hyperkalemia. 2. Acute renal failure. 3. Metabolic syndrome. 4. Morbid obesity 355 pounds, BMI over 50. 5. Sepsis. POSTOPERATIVE DIAGNOSES: 1. Hyperkalemia. 2. Acute renal failure. 3. Metabolic syndrome. 4. Morbid obesity 355 pounds, BMI over 50. 5. Sepsis. LABORATORY DATA: White count 63188, potassium 6.9 to 6.2, BUN and creatinine 39 and 3.1, GFR 19. PROCEDURE PERFORMED: Right femoral vein Trialysis catheter. ANESTHESIA: 1% Xylocaine. DESCRIPTION OF PROCEDURE: With the patient at bedside, right groin was clipped of hair, prepared with ChloraPrep and draped in routine fashion. 1% Xylocaine was infiltrated in the skin and subcutaneous tissue and using Seldinger technique, a Trialysis catheter was placed. J-wire removed. Catheter was secured with 3-0 nylon suture. Each port aspirated of blood, flushed with heparinized solution. The patient tolerated the procedure well. Job ID: [id number]
[2020-01-14] MEDS: Sodium Chloride 0.9% 1,000 ML IV SCH ×2 (10:17→16:43)
[2020-01-14] MEDS: Metoprolol Tartrate 25 MG TAB PO SCH (10:31)
[2020-01-14] MEDS: Clopidogrel Bisulfate 75 MG TAB PO SCH (10:32)
--- NOTE | 2020-01-14 10:40 | PRG ---
DATE OF SERVICE: 01/14/2020 SUBJECTIVE: A 59-year-old male, being seen for acute kidney injury. The patient denied nausea, vomiting, or chest pain. OBJECTIVE: See above. Awake, alert, in no acute distress. VITAL SIGNS: Afebrile, pulse 85, breathing 16, blood pressure 136/76. GENERAL APPEARANCE AND MENTAL STATUS: Fair. HEAD/NECK: Normocephalic. Atraumatic. EYES: EOMI. No deformity. EARS: Clear. No ulcers. NOSE: Intact. No lesions. MOUTH: Clear. No discharge. THROAT: Clear. No exudate. LUNGS: Clear. No crackles. CARDIAC: S1, S2. No rub. ABDOMEN: Benign. Bowel sounds positive. GENITALIA/RECTUM: Ray absent. BACK/EXTREMITIES: Edema 0+. NEUROLOGICAL: Alert and motor intact. SKIN: LYMPHATICS: LABORATORY DATA: Hemoglobin is 16. Potassium is 4.6, creatinine 1.9. ASSESSMENT AND PLAN: 1. Acute kidney injury, improved. 2. Hyperkalemia, improved. 3. Hypertension, stable. 4. Medication based on GFR appropriate, no indication for dialysis. Job ID: [id number]
--- NOTE | 2020-01-14 11:27 | PDOC.HOSPP ---
- Subjective Encounter Date: 01/14/20 Subjective: The patient has been successfully extubated this morning. He denies any new complaints at this time. He appears to be breathing comfortably. Good amount of urine output was noted. - Objective Vital Signs & Weight: Vital Signs (12 hours) Temp Pulse Resp BP Pulse Ox 01/14/20 08:46 87 19 92 L 01/14/20 08:00 98.5 F 11 L 01/14/20 06:18 86 113/63 01/14/20 06:17 85 16 94 L 01/14/20 06:00 16 01/14/20 04:00 99.5 F 15 01/14/20 02:00 13 01/14/20 00:00 100.4 F H 17 01/13/20 23:28 92 20 92 L Weight Admit Weight 358 lb 11.073 oz Weight 357 lb 9.436 oz Most Recent Monitor Data Heart Rate from ECG 86 NIBP 124/73 NIBP BP-Mean 90 Respiration from ECG 20 SpO2 97 I&O: 01/13/20 01/14/20 01/15/20 06:59 06:59 06:59 Intake Total 1349 3780 238 Output Total 845 3200 675 Balance 504 580 -437 Result Diagrams: 01/14/20 04:18 01/14/20 09:47 Additional Labs: Accuchecks 01/14/20 01/14/20 01/14/20 10:02 04:14 00:20 POC Glucose 307 H 290 H 270 H 01/13/20 01/13/20 01/13/20 20:13 16:46 13:57 POC Glucose 236 H 301 H 311 H 01/13/20 08:10 POC Glucose 362 H Hospitalist ROS - Medication Medications: Active Medications Generic Name Dose Route Start Last Admin Trade Name Freq PRN Reason Stop Dose Admin Albuterol/Ipratropium 3 ml 01/13/20 01:00 01/14/20 06:17 Duoneb NEB 3 ml [id number] GAURAV Administration Aspirin 325 mg 01/12/20 21:00 01/13/20 20:41 Aspirin PO 325 mg HS GAURAV Administration Bumetanide 1 mg 01/13/20 09:00 01/14/20 09:30 Bumex IVP 1 mg Q12HR GAURAV Administration Clopidogrel Bisulfate 75 mg 01/13/20 09:00 01/14/20 10:32 Plavix PO 75 mg QAM GAURAV Administration Heparin Sodium (Porcine) 5,000 units 01/13/20 09:00 01/14/20 09:30 Heparin SC 5,000 units TID GAURAV Administration Metronidazole 500 mg/ Device 100 mls @ 100 mls/hr 01/12/20 23:59 01/14/20 05: 05 IVPB 100 mls Q6HR GAURAV Administration Cefepime HCl 1 gm/ Sodium 100 mls @ 200 mls/hr 01/13/20 09:00 01/14/20 09:30 Chloride IVPB 100 mls Q12HR GAURAV Administration Norepinephrine Bitartrate 250 mls @ 0 mls/hr 01/12/20 22:45 01/13/20 08:18 Levophed IVPB 250 mls INF GAURAV Administration Protocol Titrate Sodium Chloride 1,000 mls @ 100 mls/hr 01/13/20 00:30 01/14/20 10:17 Normal Saline 0.9% IV 1,000 mls .Q10H GAURAV Administration Insulin Human Lispro 0 units 01/13/20 03:30 01/14/20 10:29 Humalog SC 11 unit .AGGRESSIVE SLIDING PRN Administration AGGRESSIVE SLIDING SCALE Protocol Insulin Human Regular 0 units 01/12/20 22:37 01/13/20 20:40 Humulin R SC 2 unit .BEDTIME SLIDING SC PRN Administration Bedtime Correctional Scale Methylprednisolone Sodium Succinate 40 mg 01/13/20 12:00 01/14/20 05:05 Solu-Medrol IVP 40 mg Q6HR GAURAV Administration Metoprolol Tartrate 25 mg 01/13/20 09:00 01/14/20 10:31 Lopressor PO 25 mg QAM GAURAV Administration Pantoprazole Sodium 40 mg 01/13/20 09:00 01/14/20 09:30 Protonix IVP 40 mg Q12HR GAURAV Administration Propofol 1,000 mg 01/12/20 22:44 01/14/20 05:10 Diprivan IV 02/11/20 22:44 1,000 mg INF PRN Administration TO ACHIEVE GOAL RASS Protocol Sodium Chloride 10 ml 01/13/20 09:00 01/14/20 09:25 Flush - Normal Saline IVF 10 ml Q12HR GAURAV Administration - Exam General Appearance: NAD, awake alert Eye: PERRL ENT: normocephalic atraumatic Neck: supple, symmetric, no JVD Heart: RRR, no murmur, no gallops, no rubs, normal peripheral pulses Respiratory: CTAB, no wheezes Gastrointestinal: soft, non-tender, non-distended, normal bowel sounds Hosp A/P (1) Acute respiratory failure with hypoxia Code(s): J96.01 - ACUTE RESPIRATORY FAILURE WITH HYPOXIA Status: Acute (2) LLL pneumonia Code(s): J18.9 - PNEUMONIA, UNSPECIFIED ORGANISM Status: Acute (3) Septic shock Code(s): A41.9 - SEPSIS, UNSPECIFIED ORGANISM; R65.21 - SEVERE SEPSIS WITH SEPTIC SHOCK Status: Acute (4) Acute kidney injury superimposed on chronic kidney disease Code(s): N17.9 - ACUTE KIDNEY FAILURE, UNSPECIFIED; N18.9 - CHRONIC KIDNEY DISEASE, UNSPECIFIED Status: Acute (5) Hyperkalemia Code(s): E87.5 - HYPERKALEMIA Status: Acute (6) Uncontrolled diabetes mellitus Code(s): E11.65 - TYPE 2 DIABETES MELLITUS WITH HYPERGLYCEMIA Status: Acute (7) Demand ischemia Code(s): I24.8 - OTHER FORMS OF ACUTE ISCHEMIC HEART DISEASE Status: Acute (8) COPD exacerbation Code(s): J44.1 - CHRONIC OBSTRUCTIVE PULMONARY DISEASE W (ACUTE) EXACERBATION Status: Acute (9) Diastolic CHF, acute on chronic Code(s): I50.33 - ACUTE ON CHRONIC DIASTOLIC (CONGESTIVE) HEART FAILURE Status : Acute - Plan The patient was extubated successfully this morning. Currently breathing well and saturating 95% on 2 L nasal cannula. Continue scheduled nebulizer treatments, corticosteroids, and antibiotics. His creatinine level and potassium are improving. Good urine output was noted. No indication for dialysis at this time. Her sugar levels are uncontrolled. The patient is extubated and oral intake will be initiated today. Change Lantus to 20units subcu twice daily. Appreciate critical care and nephrology teams.
[2020-01-14 13:11] VITALS: BMI 49.8
--- NOTE | 2020-01-14 20:38 | PDOC.CPN ---
- Subjective Date: 01/14/20 Time: 20:36 Interval history: He is doing much better. Now extubated and fully aware, I walked into room and he recognized me immediately. - Review of Systems General: denies: fever/chills, weight/appetite/sleep changes, night sweats, fatigue Respiratory: denies: cough, congestion, shortness of breath, exercise intolerance Cardiovascular: denies: chest pain, palpitation, edema, paroxysmal nocturnal dyspnea, orthopnea Gastrointestinal: denies: nausea, vomiting, diarrhea, constipation, abd pain, GI bleeding Musculoskeletal: denies: pain, tenderness, stiffness, swelling, arthritis/ arthralgias Neurological: denies: numbness, syncope, seizure, weakness - Objective Allergies/Adverse Reactions: Allergies Allergy/AdvReac Type Severity Reaction Status Date / Time Penicillins Allergy Severe Anaphylaxis Verified 12/18/18 23:59 Sulfa (Sulfonamide Allergy Severe Anaphylaxis Verified 12/18/18 23:59 Antibiotics) amitriptyline Allergy Rash Verified 12/18/18 23:59 coconut Allergy Swollen Verified 10/26/19 13:59 Lips Visit Medications: Current Medications Acetaminophen (Tylenol) 650 mg PO Q4H PRN PRN Reason: Headache/Fever/Mild Pain (1-3) Albuterol/Ipratropium (Duoneb) 3 ml NEB [id number] [facility] Last Admin: 01/14/20 18:33 Dose: 3 ml Aspirin (Aspirin) 325 mg PO HS [facility] Last Admin: 01/13/20 20:41 Dose: 325 mg Bumetanide (Bumex) 1 mg IVP Q12HR [facility] Last Admin: 01/14/20 09:30 Dose: 1 mg Clopidogrel Bisulfate (Plavix) 75 mg PO QAM [facility] Last Admin: 01/14/20 10:32 Dose: 75 mg Dextrose/Water (Dextrose 50%) 25 gm SLOW IVP PRN PRN PRN Reason: Hypoglycemia Glucagon (Glucagon) 1 mg IM PRN PRN PRN Reason: Hypoglycemia Heparin Sodium (Porcine) (Heparin) 5,000 units SC TID [facility] Last Admin: 01/14/20 15:34 Dose: 5,000 units Fentanyl Citrate 2,000 mcg/ (Sodium Chloride) 100 mls @ 0 mls/hr IV INF [facility]; Protocol Stop: 02/11/20 20:28 Metronidazole 500 mg/ Device 100 mls @ 100 mls/hr IVPB Q6HR [facility] Last Admin: 01/14/20 18:00 Dose: 100 mls Cefepime HCl 1 gm/ Sodium (Chloride) 100 mls @ 200 mls/hr IVPB Q12HR [facility] Last Admin: 01/14/20 09:30 Dose: 100 mls Norepinephrine Bitartrate (Levophed) 250 mls @ 0 mls/hr IVPB INF GAURAV; Protocol Last Admin: 01/13/20 08:18 Dose: 250 mls Dextrose/Water (D5w) 1,000 mls @ 0 mls/hr IV .Q0M PRN PRN Reason: Hypoglycemia Fentanyl Citrate (Fentanyl Bolus) 250 mls @ 0 mls/hr IVPB PRN PRN PRN Reason: Breakthrough pain/agitation Stop: 02/11/20 22:44 Sodium Chloride (Normal Saline 0.9%) 1,000 mls @ 100 mls/hr IV .Q10H [facility] Last Admin: 01/14/20 16:43 Dose: 1,000 mls Insulin Glargine 20 units/ (Miscellaneous Medication) 0.2 mls @ 0 mls/hr SC QAM [facility] Insulin Glargine 20 units/ (Miscellaneous Medication) 0.2 mls @ 0 mls/hr SC HS GAURAV Insulin Human Lispro (Humalog) 0 units SC .AGGRESSIVE SLIDING PRN; Protocol PRN Reason: AGGRESSIVE SLIDING SCALE Last Admin: 01/14/20 17:07 Dose: 9 unit Insulin Human Regular (Humulin R) 0 units SC .BEDTIME SLIDING SC PRN PRN Reason: Bedtime Correctional Scale Last Admin: 01/13/20 20:40 Dose: 2 unit Lorazepam (Ativan) 2 mg SLOW IVP Q1H PRN PRN Reason: Breakthrough agitation Stop: 02/11/20 22:44 Methylprednisolone Sodium Succinate (Solu-Medrol) 40 mg IVP Q6HR [facility] Last Admin: 01/14/20 18:01 Dose: 40 mg Metoprolol Tartrate (Lopressor) 25 mg PO QAM [facility] Last Admin: 01/14/20 10:31 Dose: 25 mg Morphine Sulfate (Morphine) 2 mg SLOW IVP Q1H PRN PRN Reason: BREAKTHROUGH PAIN/Agitation Stop: 02/11/20 22:44 Discontinue Previous Narcotic Pain Medications And Benzodiazepines 1 each FS .ONE [facility] Stop: 02/11/20 22:44 Nystatin (Mycostatin Powder) 0 gm TOP Q12H PRN PRN Reason: Topical Irritations Pantoprazole Sodium (Protonix) 40 mg PO Q12HR GAURAV Propofol (Diprivan) 1,000 mg IV INF PRN; Protocol PRN Reason: TO ACHIEVE GOAL RASS Stop: 02/11/20 22:44 Last Admin: 01/14/20 05:10 Dose: 1,000 mg Propofol (Diprivan Bolus) 20 mg IV Q5MIN PRN PRN Reason: BREAKTHROUGH AGITATION Stop: 02/11/20 22:44 Sodium Chloride (Flush - Normal Saline) 10 ml IVF Q12HR GAURAV Last Admin: 01/14/20 09:25 Dose: 10 ml Sodium Chloride (Flush - Normal Saline) 10 ml IVF PRN PRN PRN Reason: Saline Flush Sterile Water (Bacteriostatic Water) 1 ml FS PRN PRN PRN Reason: RECONSTITUTION Vital Signs & Weight: Vital Signs Temp Pulse Resp Pulse Ox 01/14/20 18:47 93 L 01/14/20 18:33 98 01/14/20 16:00 98.3 F 01/14/20 13:39 81 19 98 01/14/20 12:00 98.4 F 97 01/14/20 08:46 87 19 92 L Admit Weight 358 lb 11.073 oz Weight 357 lb 9.436 oz - Physical Exam General: alert & oriented x3 HEENT: mucus membranes moist Neck: supple neck Cardiac: regular rate and rhythm Lungs: decreased breath sounds Neuro: grossly intact Abdomen: active bowel sounds Extremities: 1+ LE edema Skin: clear Musculoskeletal: no pain - Labs Result Diagrams: 01/14/20 04:18 01/14/20 09:47 Troponin/CKMB CK-MB (CK-2) 2.6 ng/mL (0-6.6) 01/12/20 16:43 Troponin I 0.246 ng/mL (< 0.028) H 01/13/20 02:32 - Telemetry Sinus rhythms and dysrhythmias: sinus rhythm - Assessment/Plan Assessment/Plan: 1. Acute hypoxic hypercapnic respiratory insufficiency. 2. NSTEMI, Type 2 [place], demand ischemia. 3. KANDACE on CKD 4. Ischemic CM EF at better now at 50-55%, large apical and lateral wall scar on recent MPI. 5. Hyperkalemia, resolved. 6. Acute on chronic systolic and diastolic CHF PLAN: - Continue IV Bumex - Steroids per pirmary team.
[2020-01-14] MEDS: Aspirin 325 MG TAB PO SCH ×2 (20:51→22:03)
[2020-01-14] MEDS: Insulin Glargine 20 UNITS in Pre-Filled Syringe 1 EACH SC SCH ×2 (20:52→22:03)
[2020-01-14] MEDS: Insulin Regular 300 UNITS/3 ML VIAL SC PRN ×2 (20:53→22:03)
--- NOTE | 2020-01-14 23:23 | PDOC.EVN ---
Event Note - Event Note Event Note: Mr. Miller insisted on see the doctor markus. He had asked to get his aspirin timing changed. His nursed indicated she could get it changed, but he interpreted that as she was going to make the change herself. He became angry because that was outside of her scope of practice and he fired the nursed and was fairly unpleasant about it. I did speak with him and he was calm (with me, not with the nurse). I assured him we were working with his meds, but two days ago when he was admitted, he was unconscious and intubated and we did the best we could in getting his medications ordered. We are happy to change them to his normal timing. Subsequently, he requested his gabapentin and his Zolpidem. Given his recent history, I will give the Zolpidem, but not both because I don 't want him overly sedated. He also wants his diet changed to regular. That is consistent with his previous admissions.
[2020-01-14] MEDS ORDERED: Zolpidem Tartrate 5 MG TAB PO SCH (23:45)
[2020-01-15 05:21] LABS: #Lymphocytes 0.6 thou/uL (1.20-3.40); #Monocytes 0.4 thou/uL (0.11-0.59); #Neutrophils 7.9 thou/uL (1.40-6.50); %Eosinophils 0.1 % (0.0-10.0); %Lymphocytes 6.3 % (21.0-51.0); %Monocytes 4.1 % (0.0-10.0); %Neutrophils 89.5 % (42.0-75.0); Hemoglobin 16.4 g/dL (14.0-18.0); Mean Corpuscular Hemoglobin 31.8 pg (27.0-31.0); Mean Corpuscular Volume 96.5 fL (78.0-98.0); Mean Platelet Volume 9.3 fL (7.4-10.4); Platelet Count 135 thou/uL (130-400); RBC Distribution Width 14.7 % (11.5-14.5); Red Blood Cell (RBC) Count 5.15 mill/uL (4.70-6.10); White Blood Cell (WBC) Count 8.9 thou/uL (4.8-10.8)
[2020-01-15] MEDS: HumaLOG 300 UNITS/3 ML VIAL SC PRN ×4 (05:27→18:12)
[2020-01-15] MEDS: metroNIDAZOLE 500 MG in Premix Bag 1 BAG IVPB SCH ×3 (05:27→17:19)
[2020-01-15] MEDS: methylPREDNISolone Sod Succ 40 MG VIAL IVP SCH ×2 (05:27→12:37)
[2020-01-15 05:41] LABS: Anion Gap 14 mmol/L (10-20); BUN (Urea Nitrogen) 39 mg/dL (8.4-25.7); Calc. Creatinine Clearance 112 mL/min (70-130); Calcium 8.7 mg/dL (7.8-10.44); Carbon Dioxide 30 mmol/L (22-29); Chloride 101 mmol/L (98-107); Estimated GFR-MDRD 44; Glucose 343 mg/dL (70-105); Potassium 4.8 mmol/L (3.5-5.1); Sodium 140 mmol/L (136-145)
[2020-01-15] MEDS: Cefepime 1 GM in Sodium Chloride 0.9% 100 ML IVPB SCH ×2 (09:11→22:15)
[2020-01-15] MEDS: Clopidogrel Bisulfate 75 MG TAB PO SCH (09:12)
[2020-01-15] MEDS: Heparin 5,000 UNITS/ML VIAL SC SCH ×3 (09:12→22:16)
[2020-01-15] MEDS: Metoprolol Tartrate 25 MG TAB PO SCH (09:12)
[2020-01-15] MEDS: Insulin Glargine 20 UNITS in Pre-Filled Syringe 1 EACH SC SCH ×2 (09:28→22:19)
[2020-01-15] MEDS: Bumetanide 1 MG/4 ML VIAL IVP SCH ×2 (09:36→22:17)
--- NOTE | 2020-01-15 10:45 | RAD ---
FRONTAL RADIOGRAPH CHEST: 01/15/2020 HISTORY: Respiratory distress. COMPARISON: 01/14/2020 FINDINGS: The endotracheal tube and nasogastric tube have been removed since the prior exam. Stable left sided vascular catheter. Stable prominence of the cardiac silhouette. No lobar consolidation or alveolar ed gabriel. Stable midline sternotomy wires and cervical spine postoperative hardware. IMPRESSION: Interval extubation. No focal consolidation or alveolar edema. POS: [facility]
--- NOTE | 2020-01-15 12:30 | PRG ---
DATE OF SERVICE: 01/15/2020 SUBJECTIVE: A 59-year-old male being seen for acute kidney injury. The patient denied nausea, vomiting, or chest pain. OBJECTIVE: CONSTITUTIONAL: On exam, the patient is awake and alert. VITAL SIGNS: Afebrile, pulse 77, breathing 16, and blood pressure 142/87. GENERAL APPEARANCE AND MENTAL STATUS: Fair. HEAD/NECK: Normocephalic. Atraumatic. EYES: EOMI. No deformity. EARS: Clear. No ulcers. NOSE: Intact. No lesions. MOUTH: Clear. No discharge. THROAT: Clear. No exudate. LUNGS: Clear. No crackles. CARDIAC: S1, S2. No rub. ABDOMEN: Benign. Bowel sounds positive. GENITALIA/RECTUM: Ray absent. BACK/EXTREMITIES: Edema 0+. NEUROLOGICAL: Alert and motor intact. SKIN: LYMPHATICS: LABORATORY DATA: Labs show hemoglobin 16.4. Creatinine 1.6. ASSESSMENT AND PLAN: 1. Acute kidney injury, improved. 2. Hypertension, stable. 3. Anemia, stable. Medications based on GFR are appropriate. No indication for dialysis. Discontinue dialysis catheter. I will sign off. Please reconsult as needed. Job ID: [id number]
--- NOTE | 2020-01-15 15:01 | PDOC.HOSPP ---
- Subjective Encounter Date: 01/15/20 Subjective: Fees better Ambulating without difficulty breathing Tolerating his meals - Objective Vital Signs & Weight: Vital Signs (12 hours) Temp Pulse Resp Pulse Ox 01/15/20 12:54 75 16 01/15/20 08:00 98.0 F 01/15/20 07:56 100 01/15/20 07:50 100 01/15/20 07:48 75 17 01/15/20 04:00 98.5 F Weight Admit Weight 358 lb 11.073 oz Weight 358 lb 11.073 oz Most Recent Monitor Data Heart Rate from ECG 87 NIBP 141/86 NIBP BP-Mean 104 Respiration from ECG 22 SpO2 91 I&O: 01/14/20 01/15/20 01/16/20 06:59 06:59 06:59 Intake Total 3780 4095 920 Output Total 3200 3365 1175 Balance 580 730 -255 Result Diagrams: 01/15/20 04:50 01/15/20 04:50 Additional Labs: Accuchecks 01/15/20 01/15/20 01/14/20 12:31 05:09 20:54 POC Glucose 315 H 297 H 282 H 01/14/20 16:45 POC Glucose 286 H Hospitalist ROS - Medication Medications: Active Medications Generic Name Dose Route Start Last Admin Trade Name Freq PRN Reason Stop Dose Admin Albuterol/Ipratropium 3 ml 01/13/20 01:00 01/15/20 12:54 Duoneb NEB 3 ml [id number] GAURAV Administration Aspirin 325 mg 01/12/20 21:00 01/14/20 22:03 Aspirin PO 325 mg HS GAURAV Administration Bumetanide 1 mg 01/13/20 09:00 01/15/20 09:36 Bumex IVP 1 mg Q12HR GAURAV Administration Clopidogrel Bisulfate 75 mg 01/13/20 09:00 01/15/20 09:12 Plavix PO 75 mg QAM GAURAV Administration Heparin Sodium (Porcine) 5,000 units 01/13/20 09:00 01/15/20 09:12 Heparin SC 5,000 units TID GAURAV Administration Metronidazole 500 mg/ Device 100 mls @ 100 mls/hr 01/12/20 23:59 01/15/20 12: 37 IVPB 100 mls Q6HR GAURAV Administration Cefepime HCl 1 gm/ Sodium 100 mls @ 200 mls/hr 01/13/20 09:00 01/15/20 09:11 Chloride IVPB 100 mls Q12HR GAURAV Administration Norepinephrine Bitartrate 250 mls @ 0 mls/hr 01/12/20 22:45 01/13/20 08:18 Levophed IVPB 250 mls INF GAURAV Administration Protocol Titrate Sodium Chloride 1,000 mls @ 100 mls/hr 01/13/20 00:30 01/14/20 16:43 Normal Saline 0.9% IV 1,000 mls .Q10H GAURAV Administration Insulin Glargine 20 units/ 0.2 mls @ 0 mls/hr 01/15/20 09:00 01/15/20 09:28 Miscellaneous Medication SC 0.2 mls QAM GAURAV Administration Insulin Glargine 20 units/ 0.2 mls @ 0 mls/hr 01/14/20 21:00 01/14/20 22:03 Miscellaneous Medication SC 0.2 mls HS GAURAV Administration Insulin Human Lispro 0 units 01/13/20 03:30 01/15/20 12:35 Humalog SC 11 unit .AGGRESSIVE SLIDING PRN Administration AGGRESSIVE SLIDING SCALE Protocol Insulin Human Regular 0 units 01/12/20 22:37 01/14/20 22:03 Humulin R SC 3 unit .BEDTIME SLIDING SC PRN Administration Bedtime Correctional Scale Metoprolol Tartrate 25 mg 01/13/20 09:00 01/15/20 09:12 Lopressor PO 25 mg QAM GAURAV Administration Pantoprazole Sodium 40 mg 01/14/20 21:00 01/15/20 09:12 Protonix PO 40 mg Q12HR GAURAV Administration Propofol 1,000 mg 01/12/20 22:44 01/14/20 05:10 Diprivan IV 02/11/20 22:44 1,000 mg INF PRN Administration TO ACHIEVE GOAL RASS Protocol Sodium Chloride 10 ml 01/13/20 09:00 01/15/20 09:13 Flush - Normal Saline IVF 10 ml Q12HR GAURAV Administration - Exam General Appearance: NAD, awake alert Eye: anicteric sclera ENT: normocephalic atraumatic, no oropharyngeal lesions Neck: supple, symmetric, no JVD Heart: RRR, no murmur, no gallops, no rubs, normal peripheral pulses Respiratory: CTAB, no wheezes, no rales, rhonchi Gastrointestinal: soft, non-tender, non-distended, normal bowel sounds Extremities: no cyanosis, no clubbing Neurological: cranial nerve grossly intact, no focal deficits Hosp A/P (1) Acute respiratory failure with hypoxia Code(s): J96.01 - ACUTE RESPIRATORY FAILURE WITH HYPOXIA Status: Acute (2) LLL pneumonia Code(s): J18.9 - PNEUMONIA, UNSPECIFIED ORGANISM Status: Acute (3) Septic shock Code(s): A41.9 - SEPSIS, UNSPECIFIED ORGANISM; R65.21 - SEVERE SEPSIS WITH SEPTIC SHOCK Status: Acute (4) Acute kidney injury superimposed on chronic kidney disease Code(s): N17.9 - ACUTE KIDNEY FAILURE, UNSPECIFIED; N18.9 - CHRONIC KIDNEY DISEASE, UNSPECIFIED Status: Acute (5) Hyperkalemia Code(s): E87.5 - HYPERKALEMIA Status: Acute (6) Uncontrolled diabetes mellitus Code(s): E11.65 - TYPE 2 DIABETES MELLITUS WITH HYPERGLYCEMIA Status: Acute (7) Demand ischemia Code(s): I24.8 - OTHER FORMS OF ACUTE ISCHEMIC HEART DISEASE Status: Acute (8) COPD exacerbation Code(s): J44.1 - CHRONIC OBSTRUCTIVE PULMONARY DISEASE W (ACUTE) EXACERBATION Status: Acute (9) Diastolic CHF, acute on chronic Code(s): I50.33 - ACUTE ON CHRONIC DIASTOLIC (CONGESTIVE) HEART FAILURE Status : Acute - Plan The patient was extubated successfully 01/14. Currently breathing well and saturating well on RA. Continue scheduled nebulizer treatments, decrease corticosteroids, and continue antibiotics. His creatinine level improving with diuresis. Good urine output with negative fluid balance. No indication for dialysis at this time. Her sugar levels are uncontrolled due to corticosteroids. Continue current lantus dosing and wean off steroids. Appreciate critical care and nephrology teams.
[2020-01-15] MEDS ORDERED: Bacteriostatic Water 30 ML VIAL FS PRN (15:04)
--- NOTE | 2020-01-15 16:46 | PDOC.CPN ---
- Subjective Date: 01/15/20 Time: 14:00 Interval history: No new issues. Doing well. No angina, SOB at baseline. - Review of Systems General: denies: fever/chills, weight/appetite/sleep changes, night sweats, fatigue Respiratory: denies: cough, congestion, shortness of breath, exercise intolerance Cardiovascular: denies: chest pain, palpitation, edema, paroxysmal nocturnal dyspnea, orthopnea Gastrointestinal: denies: nausea, vomiting, diarrhea, constipation, abd pain, GI bleeding Musculoskeletal: denies: pain, tenderness, stiffness, swelling, arthritis/ arthralgias Neurological: denies: numbness, syncope, seizure, weakness - Objective Allergies/Adverse Reactions: Allergies Allergy/AdvReac Type Severity Reaction Status Date / Time Penicillins Allergy Severe Anaphylaxis Verified 12/18/18 23:59 Sulfa (Sulfonamide Allergy Severe Anaphylaxis Verified 12/18/18 23:59 Antibiotics) amitriptyline Allergy Rash Verified 12/18/18 23:59 coconut Allergy Swollen Verified 10/26/19 13:59 Lips Visit Medications: Current Medications Acetaminophen (Tylenol) 650 mg PO Q4H PRN PRN Reason: Headache/Fever/Mild Pain (1-3) Albuterol/Ipratropium (Duoneb) 3 ml NEB [id number] [facility] Last Admin: 01/15/20 12:54 Dose: 3 ml Aspirin (Aspirin) 325 mg PO HS [facility] Last Admin: 01/14/20 22:03 Dose: 325 mg Bumetanide (Bumex) 1 mg IVP Q12HR [facility] Last Admin: 01/15/20 09:36 Dose: 1 mg Clopidogrel Bisulfate (Plavix) 75 mg PO QAM [facility] Last Admin: 01/15/20 09:12 Dose: 75 mg Dextrose/Water (Dextrose 50%) 25 gm SLOW IVP PRN PRN PRN Reason: Hypoglycemia Glucagon (Glucagon) 1 mg IM PRN PRN PRN Reason: Hypoglycemia Heparin Sodium (Porcine) (Heparin) 5,000 units SC TID [facility] Last Admin: 01/15/20 09:12 Dose: 5,000 units Fentanyl Citrate 2,000 mcg/ (Sodium Chloride) 100 mls @ 0 mls/hr IV INF GAURAV; Protocol Stop: 02/11/20 20:28 Metronidazole 500 mg/ Device 100 mls @ 100 mls/hr IVPB Q6HR [facility] Last Admin: 01/15/20 12:37 Dose: 100 mls Cefepime HCl 1 gm/ Sodium (Chloride) 100 mls @ 200 mls/hr IVPB Q12HR [facility] Last Admin: 01/15/20 09:11 Dose: 100 mls Norepinephrine Bitartrate (Levophed) 250 mls @ 0 mls/hr IVPB INF [facility]; Protocol Last Admin: 01/13/20 08:18 Dose: 250 mls Dextrose/Water (D5w) 1,000 mls @ 0 mls/hr IV .Q0M PRN PRN Reason: Hypoglycemia Fentanyl Citrate (Fentanyl Bolus) 250 mls @ 0 mls/hr IVPB PRN PRN PRN Reason: Breakthrough pain/agitation Stop: 02/11/20 22:44 Sodium Chloride (Normal Saline 0.9%) 1,000 mls @ 100 mls/hr IV .Q10H [facility] Last Admin: 01/14/20 16:43 Dose: 1,000 mls Insulin Glargine 20 units/ (Miscellaneous Medication) 0.2 mls @ 0 mls/hr [facility] Last Admin: 01/15/20 09:28 Dose: 0.2 mls Insulin Glargine 20 units/ (Miscellaneous Medication) 0.2 mls @ 0 mls/hr SC [facility] Last Admin: 01/14/20 22:03 Dose: 0.2 mls Insulin Human Lispro (Humalog) 0 units SC .AGGRESSIVE SLIDING PRN; Protocol PRN Reason: AGGRESSIVE SLIDING SCALE Last Admin: 01/15/20 12:35 Dose: 11 unit Insulin Human Regular (Humulin R) 0 units SC .BEDTIME SLIDING SC PRN PRN Reason: Bedtime Correctional Scale Last Admin: 01/14/20 22:03 Dose: 3 unit Lorazepam (Ativan) 2 mg SLOW IVP Q1H PRN PRN Reason: Breakthrough agitation Stop: 02/11/20 22:44 Methylprednisolone Sodium Succinate (Solu-Medrol) 40 mg IVP DAILY [facility] Metoprolol Tartrate (Lopressor) 25 mg PO QAM [facility] Last Admin: 01/15/20 09:12 Dose: 25 mg Morphine Sulfate (Morphine) 2 mg SLOW IVP Q1H PRN PRN Reason: BREAKTHROUGH PAIN/Agitation Stop: 02/11/20 22:44 Discontinue Previous Narcotic Pain Medications And Benzodiazepines 1 each FS .ONE [facility] Stop: 02/11/20 22:44 Nystatin (Mycostatin Powder) 0 gm TOP Q12H PRN PRN Reason: Topical Irritations Pantoprazole Sodium (Protonix) 40 mg PO Q12HR [facility] Last Admin: 01/15/20 09:12 Dose: 40 mg Propofol (Diprivan) 1,000 mg IV INF PRN; Protocol PRN Reason: TO ACHIEVE GOAL RASS Stop: 02/11/20 22:44 Last Admin: 01/14/20 05:10 Dose: 1,000 mg Propofol (Diprivan Bolus) 20 mg IV Q5MIN PRN PRN Reason: BREAKTHROUGH AGITATION Stop: 02/11/20 22:44 Sodium Chloride (Flush - Normal Saline) 10 ml IVF Q12HR [facility] Last Admin: 01/15/20 09:13 Dose: 10 ml Sodium Chloride (Flush - Normal Saline) 10 ml IVF PRN PRN PRN Reason: Saline Flush Sterile Water (Bacteriostatic Water) 1 ml FS PRN PRN PRN Reason: RECONSTITUTION Sterile Water (Bacteriostatic Water) 1 ml FS PRN PRN PRN Reason: RECONSTITUTION Zolpidem Tartrate (Ambien) 10 mg PO HS [facility] Vital Signs & Weight: Vital Signs Temp Pulse Resp Pulse Ox 01/15/20 12:54 75 16 01/15/20 08:00 98.0 F 01/15/20 07:56 100 01/15/20 07:50 100 01/15/20 07:48 75 17 Admit Weight 358 lb 11.073 oz Weight 358 lb 11.073 oz - Physical Exam General: alert & oriented x3 HEENT: mucus membranes moist Neck: supple neck Cardiac: regular rate and rhythm Lungs: clear to auscultation Neuro: grossly intact Abdomen: active bowel sounds Extremities: 1+ LE edema Skin: clear Musculoskeletal: no pain - Labs Result Diagrams: 01/15/20 04:50 01/15/20 04:50 Troponin/CKMB CK-MB (CK-2) 2.6 ng/mL (0-6.6) 01/12/20 16:43 Troponin I 0.246 ng/mL (< 0.028) H 01/13/20 02:32 - Telemetry Sinus rhythms and dysrhythmias: sinus rhythm - Assessment/Plan Assessment/Plan: 1. Acute hypoxic hypercapnic respiratory insufficiency. 2. NSTEMI, Type 2 DE, demand ischemia. 3. KANDACE on CKD, improving. 4. Ischemic CM EF at better now at 50-55%, large apical and lateral wall scar on recent MPI. 5. Hyperkalemia, resolved. 6. Acute on chronic systolic and diastolic CHF PLAN: - Continue IV Bumex. Switch to PO tomorrow. - Steroids per pirmary team. - Springer transfer to telemetry .
--- NOTE | 2020-01-15 17:00 | PRG ---
DATE OF SERVICE: 01/15/2020 SUBJECTIVE: Vadim Miller was lying flat in bed with no dyspnea. Today, they were pulling his dialysis catheter. OBJECTIVE: VITAL SIGNS: Heart rate was 80, blood pressure 147/81, respiratory rate is 19, and oximetry is 96%. LUNGS: Clear. HEART: Regular rhythm. ABDOMEN: Soft. EXTREMITIES: Without edema. LABORATORY DATA: White count 8.9, hemoglobin 16.4, platelets 135,000. Sodium 140, potassium 4.8, chloride 101, bicarb 30, BUN 39, creatinine 1.63. Intake and output were positive 730 mL with 3365 out. IMPRESSION: 1. Acute on chronic respiratory failure with morbid obesity, improved. 2. Renal failure, improved. 3. Diabetes. 4. Status post mechanical ventilation this admission. Overall, he appears to be stable. It is anticipated to be transferred out of the Critical Care Unit. Job ID: [id number]
[2020-01-15] MEDS ORDERED: Zolpidem Tartrate 5 MG TAB PO SCH (21:00)
[2020-01-15] MEDS: Aspirin 325 MG TAB PO SCH (22:14)
[2020-01-15] MEDS: Insulin Regular 300 UNITS/3 ML VIAL SC PRN (22:17)
[2020-01-15] MEDS: Sodium Chloride 0.9% 1,000 ML IV SCH ×2 (22:19→22:39)
[2020-01-16] MEDS: metroNIDAZOLE 500 MG in Premix Bag 1 BAG IVPB SCH ×3 (00:05→12:08)
[2020-01-16 04:16] LABS: #Lymphocytes 1.3 thou/uL (1.20-3.40); #Monocytes 0.9 thou/uL (0.11-0.59); #Neutrophils 7.5 thou/uL (1.40-6.50); %Basophils 0.3 % (0.0-1.0); %Eosinophils 0.1 % (0.0-10.0); %Lymphocytes 13.5 % (21.0-51.0); %Monocytes 9.2 % (0.0-10.0); Hemoglobin 16.1 g/dL (14.0-18.0); Mean Corpuscular Hemoglobin 31.5 pg (27.0-31.0); Mean Corpuscular Volume 95.6 fL (78.0-98.0); Mean Platelet Volume 9.5 fL (7.4-10.4); Platelet Count 133 thou/uL (130-400); RBC Distribution Width 14.7 % (11.5-14.5); Red Blood Cell (RBC) Count 5.11 mill/uL (4.70-6.10); White Blood Cell (WBC) Count 9.7 thou/uL (4.8-10.8)
[2020-01-16 04:33] LABS: Anion Gap 14 mmol/L (10-20); BUN (Urea Nitrogen) 43 mg/dL (8.4-25.7); Calc. Creatinine Clearance 114 mL/min (70-130); Calcium 8.7 mg/dL (7.8-10.44); Carbon Dioxide 26 mmol/L (22-29); Chloride 104 mmol/L (98-107); Estimated GFR-MDRD 44; Glucose 302 mg/dL (70-105); Sodium 140 mmol/L (136-145)
[2020-01-16] MEDS: Sodium Chloride 0.9% 1,000 ML IV SCH ×2 (05:27→11:30)
[2020-01-16] MEDS: Clopidogrel Bisulfate 75 MG TAB PO SCH (08:51)
[2020-01-16] MEDS: Metoprolol Tartrate 25 MG TAB PO SCH (08:52)
[2020-01-16] MEDS: Cefepime 1 GM in Sodium Chloride 0.9% 100 ML IVPB SCH (08:53)
[2020-01-16] MEDS: Heparin 5,000 UNITS/ML VIAL SC SCH (08:53)
[2020-01-16] MEDS: Bumetanide 1 MG/4 ML VIAL IVP SCH (08:56)
[2020-01-16] MEDS: Insulin Glargine 20 UNITS in Pre-Filled Syringe 1 EACH SC SCH (08:56)
[2020-01-16] MEDS: HumaLOG 300 UNITS/3 ML VIAL SC PRN ×2 (08:58→12:10)
[2020-01-16] MEDS ORDERED: methylPREDNISolone Sod Succ 40 MG VIAL IVP SCH ×2 (09:00)
[2020-01-16 12:29] VITALS: BP 134/80; TEMP 97.7
--- NOTE | 2020-01-16 14:54 | PRG ---
DATE OF SERVICE: 01/16/2020 SUBJECTIVE: A 59-year-old gentleman being seen for acute kidney injury. The patient denied nausea, vomiting, or chest pain. OBJECTIVE: CONSTITUTIONAL: On examination, the patient is awake and alert. VITAL SIGNS: Afebrile, pulse 87, breathing 16, and blood pressure 134/80. GENERAL APPEARANCE AND MENTAL STATUS: Fair. HEAD/NECK: Normocephalic. Atraumatic. EYES: EOMI. No deformity. EARS: Clear. No ulcers. NOSE: Intact. No lesions. MOUTH: Clear. No discharge. THROAT: Clear. No exudate. LUNGS: Clear. No crackles. CARDIAC: S1, S2. No rub. ABDOMEN: Benign. Bowel sounds positive. GENITALIA/RECTUM: Ray absent. BACK/EXTREMITIES: Edema 0+. NEUROLOGICAL: Alert and motor intact. SKIN: LYMPHATICS: LABORATORY DATA: Labs show hemoglobin 16. Creatinine is 1.6. ASSESSMENT AND PLAN: 1. Acute kidney injury, improved. 2. Hypertension, stable. 3. Anemia, stable. Medication based on GFR appropriate. No indication for dialysis. The patient will follow up to see me in 1 month. Job ID: [id number]
--- NOTE | 2020-01-16 15:17 | PRG ---
DATE OF SERVICE: 01/16/2020 Mr. Miller had no complaints of shortness of breath. He is lying flat in bed. His lungs are clear. Heart, regular rhythm. Abdomen is soft. Extremities unchanged. I discussed outpatient sleep study with him. He said he had one 20 years ago and he was never going to do another one. He also said he would not wear a CPAP. From my standpoint, he is stable, but likely will have problems in the future related to untreated sleep apnea. This has been relayed to him. See him as needed in the future. Job ID: [id number]
--- NOTE | 2020-01-17 12:09 | DIS ---
DATE OF ADMISSION: 01/12/2020 DATE OF DISCHARGE: 01/16/2020 HISTORY OF PRESENT ILLNESS AND HOSPITAL COURSE: This is a 59-year-old male with past medical history of chronic kidney disease, hypertension, diabetic retinopathy, nephropathy, neuropathy, and TIA, who presented to the hospital with acute respiratory failure due to volume overload requiring intubation and mechanical ventilation. The patient was in acute renal failure causing volume overload and severe hyperkalemia. In addition to mechanical ventilation and respiratory support, emergency hemodialysis was started through a femoral dialysis catheter. This has led to improvement in his volume status and resolution of hyperkalemia. The patient was extubated successfully within 24 hours and was subsequently managed with scheduled nebulizer treatments, antibiotics, and steroids due to suspicion of bronchitis versus aspiration pneumonia. The patient's condition continued to improve and his kidney function returned to baseline. He was diuresed gently without worsening of his kidney function. DISCHARGE DIAGNOSES: 1. Acute respiratory failure with hypoxia. 2. Left lower lobe pneumonia, likely aspiration. 3. Acute kidney injury superimposed on chronic kidney disease. 4. Hyperkalemia. 5. Diabetes mellitus. 6. Troponin elevation due to demand ischemia. 7. Bronchitis. 8. Diastolic, [id number] congestive heart failure. DISCHARGE MEDICATIONS: 1. DuoNeb 3 mL nebulized q.6 hours as needed for shortness of breath. 2. Prednisone 40 mg orally daily for 5 days. 3. Levofloxacin 500 mg q.48 hour for 3 doses. 4. Ropinirole 2 mg orally at night. 5. Pantoprazole 40 mg orally daily. 6. Meclizine 50 mg orally twice daily. 7. Lisinopril 5 mg orally daily. Continue the rest of the medications, we have; 1. Gabapentin 800 mg twice daily. 2. Furosemide 80 mg orally daily. 3. Flexeril 10 mg orally daily. 4. Tylenol No. 3 two capsules p.o. t.i.d. p.r.n. for pain. 5. Humalog 20 units subcu with meals. Job ID: [id number]
== END 2020-01-16 12:55 | disposition home or self-care (01) | DRG 208 ==
LOC: ERS 16:22 → CCU 23:18 → 2NO 01-15 16:29
PROVIDERS: ADMIT Internal Medicine; ATTEND Internal Medicine
PROC: 5A1945Z Respiratory Ventilation, 24-96 Consecutive Hours (ICD-10-PCS; 2020-01-12)
PROC: 0BH17EZ Insertion of Endotracheal Airway into Trachea, Via Natural or Artificial Opening (ICD-10-PCS; 2020-01-12)
PROC: 5A09357 Assistance with Respiratory Ventilation, Less than 24 Consecutive Hours, Continuous Positive Airway Pressure (ICD-10-PCS; 2020-01-12)
PROC: 06HY33Z Insertion of Infusion Device into Lower Vein, Percutaneous Approach (ICD-10-PCS; principal; 2020-01-13)
PROC: 3E043XZ Introduction of Vasopressor into Central Vein, Percutaneous Approach (ICD-10-PCS; 2020-01-13)
PROC: 5A1D70Z Performance of Urinary Filtration, Intermittent, Less than 6 Hours Per Day (ICD-10-PCS; 2020-01-13)
DX: J96.01 Acute respiratory failure with hypoxia (principal); A41.9 Sepsis, unspecified organism; G92 Toxic encephalopathy; I50.33 Acute on chronic diastolic (congestive) heart failure; I21.A1 Myocardial infarction type 2; J69.0 Pneumonitis due to inhalation of food and vomit; R65.21 Severe sepsis with septic shock; N17.9 Acute kidney failure, unspecified; Z68.43 Body mass index [BMI] 50.0-59.9, adult; I13.0 Hypertensive heart and chronic kidney disease with heart failure and stage 1 through stage 4 chronic kidney disease, or unspecified chronic kidney disease; J44.1 Chronic obstructive pulmonary disease with (acute) exacerbation; J96.02 Acute respiratory failure with hypercapnia; E88.81 Metabolic syndrome and other insulin resistance; E66.01 Morbid (severe) obesity due to excess calories; E87.5 Hyperkalemia; I25.10 Atherosclerotic heart disease of native coronary artery without angina pectoris; E11.40 Type 2 diabetes mellitus with diabetic neuropathy, unspecified; F17.210 Nicotine dependence, cigarettes, uncomplicated; E11.51 Type 2 diabetes mellitus with diabetic peripheral angiopathy without gangrene; N18.3 Chronic kidney disease, stage 3 (moderate); E11.22 Type 2 diabetes mellitus with diabetic chronic kidney disease; I25.5 Ischemic cardiomyopathy; G89.29 Other chronic pain; M54.9 Dorsalgia, unspecified; E11.319 Type 2 diabetes mellitus with unspecified diabetic retinopathy without macular edema; J40 Bronchitis, not specified as acute or chronic; D63.1 Anemia in chronic kidney disease; Z90.49 Acquired absence of other specified parts of digestive tract; Z95.1 Presence of aortocoronary bypass graft; Z95.5 Presence of coronary angioplasty implant and graft; Z79.899 Other long term (current) drug therapy; Z79.82 Long term (current) use of aspirin; Z79.01 Long term (current) use of anticoagulants; Z79.1 Long term (current) use of non-steroidal anti-inflammatories (NSAID); Z88.0 Allergy status to penicillin; Z88.2 Allergy status to sulfonamides; Z28.21 Immunization not carried out because of patient refusal; Z91.018 Allergy to other foods; Z86.73 Personal history of transient ischemic attack (TIA), and cerebral infarction without residual deficits
CPT/HCPCS: 36415; 36416; 70450; 71045; 80048; 80053; 80306; 80307; 81003; 81015; 82140; 82553; 82805; 83605; 83690; 83880; 84443; 84484; 85025; 85379; 86704; 86706; 87040; 87340; 93005; 93306; 93970; 94002; 94003; 94640; 94660; C1752; C9113; J0692; J1642; J1644; J1815; J2405; J2704; J2920; J2930; J3010; J3370; J3475; J3490; J7050; J7620

== ENCOUNTER 2020-02-01 23:11 | Emergency (ER) | payer MEDICARE ==
[2020-02-01 23:58] LABS: #Eosinphils 0.3 thou/uL (0.0-0.7); #Lymphocytes 1.9 thou/uL (1.20-3.40); #Monocytes 0.6 thou/uL (0.11-0.59); #Neutrophils 6.3 thou/uL (1.40-6.50); %Basophils 0.4 % (0.0-1.0); %Lymphocytes 20.6 % (21.0-51.0); Hemoglobin 12.2 g/dL (14.0-18.0); Mean Corpuscular HGB CONC 32.9 g/dL (32.0-36.0); Mean Corpuscular Hemoglobin 31.9 pg (27.0-31.0); Mean Corpuscular Volume 96.8 fL (78.0-98.0); Mean Platelet Volume 7.2 fL (7.4-10.4); Platelet Count 246 thou/uL (130-400); RBC Distribution Width 16.3 % (11.5-14.5); Red Blood Cell (RBC) Count 3.82 mill/uL (4.70-6.10); White Blood Cell (WBC) Count 9.1 thou/uL (4.8-10.8)
[2020-02-02] MEDS ORDERED: Morphine 4 MG/ML VIAL ONE (00:03)
[2020-02-02 00:06] LABS: PTT 29.5 SEC (22.9-36.1); Prothrombin Time 12.8 SEC (12.0-14.7)
[2020-02-02 00:35] LABS: ALT (SGPT) 11 U/L (8-55); AST (SGOT) 22 U/L (5-34); Albumin 3.2 g/dL (3.5-5.0); Alkaline Phosphatase 111 U/L (40-110); Anion Gap 13 mmol/L (10-20); BUN (Urea Nitrogen) 13 mg/dL (8.4-25.7); Bilirubin, Total 1.1 mg/dL (0.2-1.2); Calc. Creatinine Clearance 0 mL/min (70-130); Calcium 8.5 mg/dL (7.8-10.44); Carbon Dioxide 25 mmol/L (22-29); Chloride 100 mmol/L (98-107); Estimated GFR-MDRD 53; Globulin 3.2 g/dL (2.4-3.5); Glucose 277 mg/dL (70-105); Potassium 4.2 mmol/L (3.5-5.1); Protein, Total 6.4 g/dL (6.0-8.3); Sodium 134 mmol/L (136-145)
--- NOTE | 2020-02-02 09:11 | ULT ---
PRELIMINARY REPORT/[facility]/EMERGENCY AFTER HOURS PROCEDURE: US LOW EXT ART VAS UNILAT SCAN History: RT groin dialysis cath removed 01/16, pain/edema, palpable knot felt with bruising Comparison: None Findings: Complex fluid collection, without internal peripheral flow is seen within the area of bruising in the right groin, measuring 16.3 x 11.6 x 6.9 cm. Arterial flow is seen within the right femoral artery to the level of the superficial femoral and de ep femoral artery. Venous flow is identified within the right common femoral vein to the level of the superficial and de ep femoral veins. No additional abnormality otherwise seen. Impression: 1. Large complex collection in the region of bruising. Findings concerning for large hematoma. A c ompletely thrombosed pseudoaneurysm can have similar appearance. No internal flow is identified. 2. Arterial and venous flow are identified in the respective femoral vessels. ELECTRONICALLY SIGNED BY: Santi Cho DO Feb 02, 2020 1:16:14 AM WEB SOFTWARE ENGINEER This report is intended for review by the ordering physician only, in accordance of law. If you recei ve this report in error, please call [facility] at [phone]. FINAL REPORT EMERGENCY AFTER HOURS US LOW EXT ART VAS UNILAT SCAN: I agree with the preliminary report provided by [facility]. There is a large hematoma within the right inguinal region without evidence of pseudoaneurysm. Arteri al flow is seen within the adjacent right femoral artery and profunda femoral artery. Appropriate yuli ous flow is seen within the right femoral vein. POS: [facility]
== END 2020-02-02 01:25 | disposition home or self-care (01) ==
LOC: ERS 23:11
DX: T82.898A Other specified complication of vascular prosthetic devices, implants and grafts, initial encounter (principal); I25.2 Old myocardial infarction; I13.0 Hypertensive heart and chronic kidney disease with heart failure and stage 1 through stage 4 chronic kidney disease, or unspecified chronic kidney disease; E11.22 Type 2 diabetes mellitus with diabetic chronic kidney disease; N18.3 Chronic kidney disease, stage 3 (moderate); I50.9 Heart failure, unspecified; E11.40 Type 2 diabetes mellitus with diabetic neuropathy, unspecified; E66.01 Morbid (severe) obesity due to excess calories; K21.9 Gastro-esophageal reflux disease without esophagitis; J44.9 Chronic obstructive pulmonary disease, unspecified; F32.9 Major depressive disorder, single episode, unspecified; F17.210 Nicotine dependence, cigarettes, uncomplicated; Z86.73 Personal history of transient ischemic attack (TIA), and cerebral infarction without residual deficits; Z79.82 Long term (current) use of aspirin; Z79.899 Other long term (current) drug therapy; Z79.02 Long term (current) use of antithrombotics/antiplatelets; Z79.51 Long term (current) use of inhaled steroids; Z79.4 Long term (current) use of insulin
CPT/HCPCS: 36415; 80053; 85025; 85610; 85730; 93926; 96374; J2270

== ENCOUNTER 2020-02-14 14:57 | Emergency (ER) | payer MEDICARE ==
[2020-02-14] MEDS ORDERED: Magnesium 2 GM/50 ML BAG (IN WATER) ONE (15:15)
--- NOTE | 2020-02-14 15:25 | RAD ---
Chest one view HISTORY: Cough and fever. COMPARISON: 01/15/2020. FINDINGS: Cardiac silhouette is magnified and enlarged. Pulmonary vasculature upper limits of normal. Mediastinum is midline with postoperative changes, including fracture of the upper 2 sternal wires. P ostoperative changes of the cervical spine also evident. No lobar consolidation or evidence of pneumothorax. monitor technician leads overlie the chest. IMPRESSION: Cardiomegaly, stable. No active cardiopulmonary abnormalities are reliably demonstrated.
[2020-02-14 15:46] LABS: #Eosinphils 0.1 thou/uL (0.0-0.7); #Lymphocytes 1.4 thou/uL (1.20-3.40); #Monocytes 0.5 thou/uL (0.11-0.59); #Neutrophils 7.3 thou/uL (1.40-6.50); %Basophils 0.3 % (0.0-1.0); %Eosinophils 1.1 % (0.0-10.0); %Lymphocytes 14.8 % (21.0-51.0); %Neutrophils 78.9 % (42.0-75.0); Hemoglobin 14.8 g/dL (14.0-18.0); Mean Corpuscular HGB CONC 32.3 g/dL (32.0-36.0); Mean Corpuscular Volume 95.7 fL (78.0-98.0); Mean Platelet Volume 8.8 fL (7.4-10.4); Platelet Count 224 thou/uL (130-400); RBC Distribution Width 16.3 % (11.5-14.5); Red Blood Cell (RBC) Count 4.79 mill/uL (4.70-6.10); White Blood Cell (WBC) Count 9.3 thou/uL (4.8-10.8)
[2020-02-14 16:14] LABS: ALT (SGPT) 12 U/L (8-55); AST (SGOT) 19 U/L (5-34); Albumin 3.7 g/dL (3.5-5.0); Alkaline Phosphatase 123 U/L (40-110); Anion Gap 14 mmol/L (10-20); BUN (Urea Nitrogen) 20 mg/dL (8.4-25.7); Bilirubin, Total 0.8 mg/dL (0.2-1.2); CK (CPK) 95 U/L (30-200); Calc. Creatinine Clearance 0 mL/min (70-130); Calcium 8.4 mg/dL (7.8-10.44); Carbon Dioxide 29 mmol/L (22-29); Chloride 96 mmol/L (98-107); Estimated GFR-MDRD 45; Glucose 274 mg/dL (70-105); Magnesium 2.4 mg/dL (1.6-2.6); Potassium 4.7 mmol/L (3.5-5.1); Protein, Total 6.7 g/dL (6.0-8.3); Sodium 134 mmol/L (136-145)
--- NOTE | 2020-02-19 08:44 | EKG ---
Test Reason : Blood Pressure : / mmHG Vent. Rate : 095 BPM Atrial Rate : 095 BPM P-R Int : 186 ms QRS Dur : 100 ms QT Int : 360 ms P-R-T Axes : 046 -08 089 degrees QTc Int : 452 ms Sinus rhythm with occasional Premature ventricular complexes Low voltage QRS Inferior infarct , age undetermined Cannot rule out Anterior infarct , age undetermined Abnormal ECG Confirmed by ASHLEY MARTIN D.O. ([id number]), make up editor BERE REYNA ([id number]) on 02/19/2020 8:44:37 AM Referred By: Confirmed By:ASHLEY MARTIN D.O.
== END 2020-02-14 17:53 | disposition home or self-care (01) ==
LOC: ERS 14:57
DX: J44.1 Chronic obstructive pulmonary disease with (acute) exacerbation (principal); E11.22 Type 2 diabetes mellitus with diabetic chronic kidney disease; I13.0 Hypertensive heart and chronic kidney disease with heart failure and stage 1 through stage 4 chronic kidney disease, or unspecified chronic kidney disease; I50.9 Heart failure, unspecified; I25.2 Old myocardial infarction; F32.9 Major depressive disorder, single episode, unspecified; Z79.899 Other long term (current) drug therapy; Z79.4 Long term (current) use of insulin
CPT/HCPCS: 71045; 80053; 82550; 83735; 83880; 84484; 85025; 87804; 93005; 94640; 94760; 96365; J3475

== ENCOUNTER 2021-02-02 15:37 | Inpatient (IN) | payer MEDICARE, MEDICAID ==
[2021-02-02] MEDS ORDERED: Ketamine 50 MG/ML (10ML VIAL) ONE (15:49)
[2021-02-02] MEDS ORDERED: Rocuronium Bromide 10 MG/ML (10ML VIAL) ONE (15:49)
[2021-02-02 16:15] LABS: Hemoglobin 19.8 g/dL (14.0-18.0); Mean Corpuscular HGB CONC 31.3 g/dL (32.0-36.0); Mean Corpuscular Hemoglobin 30.6 pg (27.0-31.0); Mean Corpuscular Volume 97.9 fL (78.0-98.0); Mean Platelet Volume 8.7 fL (7.4-10.4); Platelet Count 288 thou/uL (130-400); RBC Distribution Width 15.4 % (11.5-14.5); Red Blood Cell (RBC) Count 6.48 mill/uL (4.70-6.10)
[2021-02-02 16:20] LABS: INR-International Normal Ratio 1.1; Prothrombin Time 14.6 sec (12.0-14.7)
[2021-02-02 16:21] LABS: PTT 38.3 sec (22.9-36.1)
[2021-02-02 16:31] LABS: Anisocytosis SLIGHT = 6-15 cells (100X) (0-5/hpf); Lymphocytes 7 % (21-51); MDiff Complete? YES; Monocytes 11 % (0-10); Neutrophil 82 % (42-75); Nucleated RBC 1 % (0); Platelet Morphology Comment Appears Adequate; Polychromasia SLIGHT = 2-3 cells (100X) (0-2/hpf); White Blood Cell (WBC) Count 15.2 thou/uL (4.8-10.8)
[2021-02-02 16:32] LABS: Bacteria/HPF None Seen HPF (None Seen); Bilirubin Negative (Negative); Blood, Urine Negative (Negative); Clarity Clear (Clear); Glucose, Urine (Dipstick) Normal (Negative); Ketone, Urine Negative (Negative); Leukocyte Negative Leu/uL (Negative); Nitrite Negative (Negative); Protein, Urine (Dipstick) 300 mg/dL (Neg-Trace); RBC/HPF 0-3 HPF (0-3); Specific Gravity, Urine 1.021 (1.002-1.036); Squamous Epithelial 0-3 HPF (0-3); Urobilinogen 3 mg/dL (Less than 2); WBC/HPF 0-3 HPF (0-3); pH, Urine 5.5 (5.0-9.0)
[2021-02-02 16:35] LABS: ALT (SGPT) 46 U/L (8-55); AST (SGOT) 63 U/L (5-34); Albumin 3.9 g/dL (3.5-5.0); Alkaline Phosphatase 151 U/L (40-110); Anion Gap 22 mmol/L (10-20); BUN (Urea Nitrogen) 31 mg/dL (8.4-25.7); CK (CPK) 69 U/L (30-200); Calc. Creatinine Clearance 0 mL/min (70-130); Calcium 8.5 mg/dL (7.8-10.44); Carbon Dioxide 24 mmol/L (22-29); Chloride 95 mmol/L (98-107); Globulin 3.5 g/dL (2.4-3.5); Glucose 235 mg/dL (70-105); Lipase 30 U/L (8-78); Potassium 5.8 mmol/L (3.5-5.1); Protein, Total 7.4 g/dL (6.0-8.3); Sodium 135 mmol/L (136-145)
[2021-02-02] MEDS ORDERED: Norepinephrine 8 MG/0.9% NS 250 ML ONE (16:35)
[2021-02-02 16:40] LABS: Actual Bicarbonate (HCO3a) 24.1 mEq/L (22-28); Analyzer IN Cardio ER; Base Excess (BEa) -2.8 mEq/L (-2.0 to +3.0); CO2 Tension 48.6 mmHg (35.0-45.0); Calcium, Ionized (arterial) 1.09 mmol/L (1.12-1.30); Carboxyhemoglobin (COHb) 3.3 gm% (0.0-3.0); O2 Tension (PaO2), arterial 72.9 mmHg (> 80.0); Potassium - ABG Lab 6.41 mmol/L (3.70-5.30); pH, Arterial 7.31 (7.35-7.45)
[2021-02-02 16:43] LABS: Hemoglobin (Hb) 20.1 g/dL (14.0-18.0)
[2021-02-02 16:44] LABS: Puncture Site LRA
[2021-02-02] MEDS ORDERED: Aspirin 300 MG Suppository ONE ×2 (16:49→17:41)
[2021-02-02 16:56] LABS: CKMB 1.7 ng/mL (0-6.6)
[2021-02-02] MEDS ORDERED: VANCOMYCIN 2 GRAM/400 ML BAG 2 GM in Premix Bag 1 BAG IVPB SCH (17:00)
[2021-02-02 17:10] LABS: SARS-CoV-2 NAA Rapid Test Not Detected (NotDetected)
[2021-02-02] MEDS ORDERED: Enoxaparin Sodium 60 MG/0.6 ML SYRINGE ONE (17:41)
[2021-02-02] MEDS ORDERED: Enoxaparin Sodium 100 MG/ML SYRINGE ONE (17:43)
[2021-02-02] MEDS ORDERED: Acetaminophen 650 MG Suppository PR PRN (18:18)
[2021-02-02] MEDS ORDERED: Fentanyl 100 MCG/2 ML VIAL ONE (18:18)
[2021-02-02] MEDS ORDERED: Norepinephrine 8 MG/0.9% NS 250 ML IVPB SCH (18:30)
[2021-02-02] MEDS ORDERED: Dextrose 5% in Water 1,000 ML IV PRN (18:31)
[2021-02-02] MEDS ORDERED: Dextrose 50% Abboject 50 ML SYRINGE SLOW IVP PRN (18:31)
[2021-02-02] MEDS ORDERED: Propofol BOLUS 1,000 MG/100 ML VIAL IV PRN (19:00)
[2021-02-02] MEDS ORDERED: Ventilator Sedation Protocol 1 EACH FS ONE (19:00)
[2021-02-02] MEDS ORDERED: Fentanyl BOLUS 250 ML IVPB PRN (19:00)
[2021-02-02] MEDS ORDERED: Fentanyl CADD 100 ML IV SCH (19:00)
[2021-02-02] MEDS ORDERED: DISCONTINUE PREVIOUS NARCOTIC PAIN MEDICATIONS AND BENZODIAZEPINES FS SCH (19:00)
[2021-02-02] MEDS ORDERED: Morphine 2 MG/ML VIAL SLOW IVP PRN (19:00)
[2021-02-02] MEDS ORDERED: Propofol 1,000 MG/100 ML VIAL IV PRN (19:00)
[2021-02-02 19:21] LABS: Hemoglobin 19.4 g/dL (14.0-18.0); Mean Corpuscular HGB CONC 31.2 g/dL (32.0-36.0); Mean Corpuscular Hemoglobin 30.6 pg (27.0-31.0); Mean Corpuscular Volume 98.2 fL (78.0-98.0); Mean Platelet Volume 8.7 fL (7.4-10.4); Platelet Count 312 thou/uL (130-400); RBC Distribution Width 15.5 % (11.5-14.5); Red Blood Cell (RBC) Count 6.34 mill/uL (4.70-6.10)
[2021-02-02] MEDS: methylPREDNISolone Sod Succ 40 MG VIAL IVP SCH (19:23)
[2021-02-02] MEDS: Sodium Chloride 0.9% 1,000 ML IV SCH (19:23)
[2021-02-02] MEDS ORDERED: Fentanyl CADD 100 ML ONE (19:26)
[2021-02-02 19:35] LABS: Anisocytosis SLIGHT = 6-15 cells (100X) (0-5/hpf); Band 2 % (5-11); Lactic Acid 2.6 mmol/L (0.5-2.2); Lymphocytes 9 % (21-51); MDiff Complete? YES; Monocytes 9 % (0-10); Neutrophil 80 % (42-75); Nucleated RBC 2 % (0); Platelet Morphology Comment Appears Adequate; Polychromasia SLIGHT = 2-3 cells (100X) (0-2/hpf); White Blood Cell (WBC) Count 17.7 thou/uL (4.8-10.8)
[2021-02-02 19:45] LABS: Troponin I 0.201 ng/mL (< 0.028)
[2021-02-02 19:59] LABS: ALT (SGPT) 54 U/L (8-55); AST (SGOT) 94 U/L (5-34); Albumin 3.5 g/dL (3.5-5.0); Alkaline Phosphatase 130 U/L (40-110); Anion Gap 23 mmol/L (10-20); BUN (Urea Nitrogen) 31 mg/dL (8.4-25.7); Calc. Creatinine Clearance 50 mL/min (70-130); Calcium 7.7 mg/dL (7.8-10.44); Carbon Dioxide 20 mmol/L (22-29); Chloride 98 mmol/L (98-107); Globulin 3.1 g/dL (2.4-3.5); Glucose 223 mg/dL (70-105); Protein, Total 6.6 g/dL (6.0-8.3); Sodium 135 mmol/L (136-145)
[2021-02-02] MEDS: Heparin 5,000 UNITS/ML VIAL SC SCH (20:33)
[2021-02-02] MEDS: HumaLOG 300 UNITS/3 ML VIAL SC PRN (21:24)
[2021-02-02] MEDS: Nystatin Powder 15 GM BOT TOP SCH (21:25)
[2021-02-02] MEDS: Cefepime 1 GM in Sodium Chloride 0.9% 100 ML IVPB SCH (21:26)
[2021-02-02 22:39] LABS: Troponin I 0.231 ng/mL (< 0.028)
[2021-02-03] MEDS: HumaLOG 300 UNITS/3 ML VIAL SC PRN ×4 (04:38→21:05)
[2021-02-03 05:53] LABS: #Lymphocytes 1.4 thou/uL (1.20-3.40); %Basophils 0.2 % (0.0-1.0); %Lymphocytes 9.1 % (21.0-51.0); %Monocytes 6.3 % (0.0-10.0); %Neutrophils 84.3 % (42.0-75.0); Hemoglobin 18.3 g/dL (14.0-18.0); Mean Corpuscular HGB CONC 30.2 g/dL (32.0-36.0); Mean Corpuscular Hemoglobin 29.1 pg (27.0-31.0); Mean Corpuscular Volume 96.2 fL (78.0-98.0); Mean Platelet Volume 8.8 fL (7.4-10.4); Platelet Count 230 thou/uL (130-400); RBC Distribution Width 15.6 % (11.5-14.5); Red Blood Cell (RBC) Count 6.27 mill/uL (4.70-6.10); White Blood Cell (WBC) Count 15.4 thou/uL (4.8-10.8)
[2021-02-03 06:11] LABS: ALT (SGPT) 54 U/L (8-55); AST (SGOT) 62 U/L (5-34); Albumin 3.3 g/dL (3.5-5.0); Alkaline Phosphatase 115 U/L (40-110); Anion Gap 17 mmol/L (10-20); BUN (Urea Nitrogen) 40 mg/dL (8.4-25.7); Bilirubin, Total 0.8 mg/dL (0.2-1.2); Calc. Creatinine Clearance 56 mL/min (70-130); Calcium 8.4 mg/dL (7.8-10.44); Carbon Dioxide 26 mmol/L (22-29); Chloride 99 mmol/L (98-107); Glucose 218 mg/dL (70-105); Potassium 4.4 mmol/L (3.5-5.1); Protein, Total 6.3 g/dL (6.0-8.3); Sodium 138 mmol/L (136-145)
[2021-02-03] MEDS: methylPREDNISolone Sod Succ 40 MG VIAL IVP SCH ×3 (06:35→18:12)
[2021-02-03] MEDS: Nystatin Powder 15 GM BOT TOP SCH ×2 (08:27→20:24)
[2021-02-03] MEDS: Heparin 5,000 UNITS/ML VIAL SC SCH ×3 (08:30→20:23)
[2021-02-03] MEDS ORDERED: hydrALAZINE 20 MG/ML VIAL SLOW IVP PRN (12:11)
[2021-02-03] MEDS ORDERED: Aspirin 81 mg Enteric Coated Tablet PER TUBE SCH (12:15)
[2021-02-03] MEDS ORDERED: Pantoprazole 40 MG VIAL IVP SCH (12:30)
[2021-02-03] MEDS: Sodium Chloride 0.9% 1,000 ML IV SCH (15:09)
[2021-02-03] MEDS ORDERED: Fentanyl CADD 100 ML ONE (18:29)
[2021-02-03 18:34] LABS: Vancomycin, Random 11.3 ug/mL (See Comment)
[2021-02-03] MEDS: Vancomycin 1.5 GRAM/300 ML BAG 1.5 GM in Premix Bag 1 BAG IVPB SCH (19:48)
[2021-02-03] MEDS: Cefepime 1 GM in Sodium Chloride 0.9% 100 ML IVPB SCH (20:23)
[2021-02-03] MEDS ORDERED: Vancomycin 1.5 GRAM/300 ML BAG 1.5 GM in Premix Bag 1 BAG IVPB PRN (21:00)
[2021-02-04] MEDS: methylPREDNISolone Sod Succ 40 MG VIAL IVP SCH ×3 (03:45→17:29)
[2021-02-04] MEDS: HumaLOG 300 UNITS/3 ML VIAL SC PRN ×4 (04:40→22:16)
[2021-02-04 05:43] LABS: Hemoglobin 18.2 g/dL (14.0-18.0); Mean Corpuscular Hemoglobin 30.5 pg (27.0-31.0); Mean Corpuscular Volume 95.6 fL (78.0-98.0); Mean Platelet Volume 8.6 fL (7.4-10.4); Platelet Count 217 thou/uL (130-400); RBC Distribution Width 15.7 % (11.5-14.5); Red Blood Cell (RBC) Count 5.94 mill/uL (4.70-6.10); White Blood Cell (WBC) Count 14.3 thou/uL (4.8-10.8)
[2021-02-04 06:03] LABS: ALT (SGPT) 52 U/L (8-55); AST (SGOT) 40 U/L (5-34); Albumin 3.4 g/dL (3.5-5.0); Alkaline Phosphatase 111 U/L (40-110); Anion Gap 16 mmol/L (10-20); BUN (Urea Nitrogen) 48 mg/dL (8.4-25.7); Bilirubin, Total 0.9 mg/dL (0.2-1.2); Calc. Creatinine Clearance 84 mL/min (70-130); Calcium 9.1 mg/dL (7.8-10.44); Carbon Dioxide 27 mmol/L (22-29); Chloride 99 mmol/L (98-107); Glucose 235 mg/dL (70-105); Lymphocytes 4 % (21-51); MDiff Complete? YES; Monocytes 4 % (0-10); Neutrophil 92 % (42-75); Platelet Morphology Comment Appears Adequate; Protein, Total 6.4 g/dL (6.0-8.3); Sodium 138 mmol/L (136-145)
[2021-02-04 06:35] LABS: Actual Bicarbonate (HCO3a) 25.2 mEq/L (22-28); Base Excess (BEa) 0.1 mEq/L (-2.0 to +3.0); CO2 Tension 42.2 mmHg (35.0-45.0); Calcium, Ionized (arterial) 1.22 mmol/L (1.12-1.30); Carboxyhemoglobin (COHb) 0.3 gm% (0.0-3.0); Hemoglobin (Hb) 19.2 g/dL (14.0-18.0); O2 Tension (PaO2), arterial 84.6 mmHg (> 80.0); Potassium - ABG Lab 4.07 mmol/L (3.70-5.30); pH, Arterial 7.39 (7.35-7.45)
[2021-02-04 06:36] LABS: Puncture Site RRA
[2021-02-04] MEDS: Heparin 5,000 UNITS/ML VIAL SC SCH ×3 (09:21→21:01)
[2021-02-04] MEDS: Aspirin 81 mg Enteric Coated Tablet PER TUBE SCH (09:21)
[2021-02-04] MEDS: Nystatin Powder 15 GM BOT TOP SCH ×2 (09:22→21:02)
[2021-02-04] MEDS: Pantoprazole 40 MG VIAL IVP SCH (09:22)
[2021-02-04] MEDS: Sodium Chloride 0.9% 1,000 ML IV SCH (09:46)
[2021-02-04] MEDS ORDERED: Fentanyl CADD 100 ML ONE (10:21)
[2021-02-04] MEDS: Lorazepam 2 MG/ML VIAL SLOW IVP PRN ×2 (11:03→12:35)
[2021-02-04] MEDS: Vancomycin 1.5 GRAM/300 ML BAG 1.5 GM in Premix Bag 1 BAG IVPB SCH (20:56)
[2021-02-04] MEDS: Cefepime 1 GM in Sodium Chloride 0.9% 100 ML IVPB SCH (21:01)
[2021-02-05] MEDS: methylPREDNISolone Sod Succ 40 MG VIAL IVP SCH ×3 (04:05→18:00)
[2021-02-05 04:44] LABS: #Lymphocytes 0.9 thou/uL (1.20-3.40); #Monocytes 0.8 thou/uL (0.11-0.59); %Basophils 0.1 % (0.0-1.0); %Eosinophils 0.1 % (0.0-10.0); %Lymphocytes 6.7 % (21.0-51.0); %Monocytes 6.1 % (0.0-10.0); %Neutrophils 87.1 % (42.0-75.0); Hemoglobin 18.4 g/dL (14.0-18.0); Mean Corpuscular HGB CONC 31.5 g/dL (32.0-36.0); Mean Corpuscular Hemoglobin 30.3 pg (27.0-31.0); Mean Corpuscular Volume 96.1 fL (78.0-98.0); Mean Platelet Volume 8.7 fL (7.4-10.4); Platelet Count 187 thou/uL (130-400); RBC Distribution Width 15.5 % (11.5-14.5); Red Blood Cell (RBC) Count 6.08 mill/uL (4.70-6.10); White Blood Cell (WBC) Count 13.8 thou/uL (4.8-10.8)
[2021-02-05 05:09] LABS: Anion Gap 15 mmol/L (10-20); BUN (Urea Nitrogen) 58 mg/dL (8.4-25.7); Calc. Creatinine Clearance 104 mL/min (70-130); Calcium 8.9 mg/dL (7.8-10.44); Carbon Dioxide 27 mmol/L (22-29); Chloride 102 mmol/L (98-107); Glucose 274 mg/dL (70-105); Potassium 4.1 mmol/L (3.5-5.1); Sodium 140 mmol/L (136-145)
[2021-02-05] MEDS: HumaLOG 300 UNITS/3 ML VIAL SC PRN ×4 (05:11→21:29)
[2021-02-05] MEDS: Sodium Chloride 0.9% 1,000 ML IV SCH (06:11)
[2021-02-05 06:53] LABS: Actual Bicarbonate (HCO3a) 24.2 mEq/L (22-28); Base Excess (BEa) -1.1 mEq/L (-2.0 to +3.0); CO2 Tension 42.5 mmHg (35.0-45.0); Calcium, Ionized (arterial) 1.26 mmol/L (1.12-1.30); Carboxyhemoglobin (COHb) 0.3 gm% (0.0-3.0); Hemoglobin (Hb) 19.8 g/dL (14.0-18.0); O2 Tension (PaO2), arterial 79.2 mmHg (> 80.0); Potassium - ABG Lab 4.29 mmol/L (3.70-5.30); pH, Arterial 7.37 (7.35-7.45)
[2021-02-05 06:54] LABS: ALV-art Gradient 152.875 mmHg (0-20); Puncture Site LRA
[2021-02-05] MEDS: Heparin 5,000 UNITS/ML VIAL SC SCH ×3 (08:27→21:27)
[2021-02-05] MEDS: Aspirin 81 mg Enteric Coated Tablet PER TUBE SCH (08:27)
[2021-02-05] MEDS: Pantoprazole 40 MG VIAL IVP SCH (08:27)
[2021-02-05] MEDS: Nystatin Powder 15 GM BOT TOP SCH ×2 (08:29→21:58)
[2021-02-05] MEDS: Vancomycin 1.5 GRAM/300 ML BAG 1.5 GM in Premix Bag 1 BAG IVPB SCH (19:25)
[2021-02-05] MEDS: Cefepime 1 GM in Sodium Chloride 0.9% 100 ML IVPB SCH (21:27)
[2021-02-05] MEDS: Insulin Glargine 5 UNITS in Pre-Filled Syringe 1 EACH SC SCH (21:28)
[2021-02-06] MEDS: methylPREDNISolone Sod Succ 40 MG VIAL IVP SCH ×3 (02:10→18:16)
[2021-02-06 04:29] LABS: #Basophils 0.1 thou/uL (0.0-0.2); #Lymphocytes 1.1 thou/uL (1.20-3.40); #Neutrophils 11.6 thou/uL (1.40-6.50); %Basophils 0.5 % (0.0-1.0); %Eosinophils 0.1 % (0.0-10.0); %Lymphocytes 7.8 % (21.0-51.0); %Neutrophils 84.6 % (42.0-75.0); Hemoglobin 18.7 g/dL (14.0-18.0); Mean Corpuscular HGB CONC 31.9 g/dL (32.0-36.0); Mean Corpuscular Hemoglobin 30.6 pg (27.0-31.0); Platelet Count 176 thou/uL (130-400); RBC Distribution Width 15.3 % (11.5-14.5); Red Blood Cell (RBC) Count 6.09 mill/uL (4.70-6.10); White Blood Cell (WBC) Count 13.7 thou/uL (4.8-10.8)
[2021-02-06] MEDS: HumaLOG 300 UNITS/3 ML VIAL SC PRN ×4 (05:28→21:25)
[2021-02-06 07:39] LABS: Actual Bicarbonate (HCO3a) 25.6 mEq/L (22-28); Base Excess (BEa) 0.1 mEq/L (-2.0 to +3.0); CO2 Tension 43.8 mmHg (35.0-45.0); Calcium, Ionized (arterial) 1.31 mmol/L (1.12-1.30); Carboxyhemoglobin (COHb) 0.1 gm% (0.0-3.0); O2 Tension (PaO2), arterial 81.5 mmHg (> 80.0); Potassium - ABG Lab 5.16 mmol/L (3.70-5.30); pH, Arterial 7.38 (7.35-7.45)
[2021-02-06 07:43] LABS: Hemoglobin (Hb) 20.2 g/dL (14.0-18.0); Puncture Site RRA
[2021-02-06] MEDS: Insulin Glargine 10 UNITS in Pre-Filled Syringe 1 EACH SC SCH (09:29)
[2021-02-06] MEDS: Heparin 5,000 UNITS/ML VIAL SC SCH ×3 (09:29→21:21)
[2021-02-06] MEDS: Pantoprazole 40 MG VIAL IVP SCH (09:30)
[2021-02-06] MEDS: Nystatin Powder 15 GM BOT TOP SCH ×2 (09:42→21:22)
[2021-02-06] MEDS: Aspirin 81 mg Enteric Coated Tablet PER TUBE SCH (09:43)
[2021-02-06] MEDS: Sodium Chloride 0.9% 1,000 ML IV SCH (10:16)
[2021-02-06] MEDS ORDERED: hydrALAZINE 20 MG/ML VIAL SLOW IVP PRN (16:06)
[2021-02-06] MEDS ORDERED: Metoprolol Tartrate 25 MG TAB PO SCH (17:00)
[2021-02-06] MEDS ORDERED: Metoprolol Tartrate 5 MG/5 ML VIAL IVP PRN (17:02)
[2021-02-06] MEDS ORDERED: Metoprolol Tartrate 5 MG/5 ML VIAL IVP SCH (17:15)
[2021-02-06] MEDS: Metoprolol Tartrate 25 MG TAB PO SCH (18:15)
[2021-02-06] MEDS: Insulin Glargine 5 UNITS in Pre-Filled Syringe 1 EACH SC SCH (21:21)
[2021-02-06] MEDS: Cefepime 1 GM in Sodium Chloride 0.9% 100 ML IVPB SCH (21:21)
[2021-02-07] MEDS: methylPREDNISolone Sod Succ 40 MG VIAL IVP SCH (02:37)
[2021-02-07 04:32] LABS: #Basophils 0.1 thou/uL (0.0-0.2); #Lymphocytes 0.9 thou/uL (1.20-3.40); #Monocytes 0.9 thou/uL (0.11-0.59); #Neutrophils 11.6 thou/uL (1.40-6.50); %Basophils 1.1 % (0.0-1.0); %Eosinophils 0.1 % (0.0-10.0); %Lymphocytes 6.5 % (21.0-51.0); %Monocytes 6.9 % (0.0-10.0); %Neutrophils 85.4 % (42.0-75.0); Hemoglobin 18.3 g/dL (14.0-18.0); Mean Corpuscular HGB CONC 31.2 g/dL (32.0-36.0); Mean Corpuscular Hemoglobin 29.9 pg (27.0-31.0); Mean Corpuscular Volume 96.1 fL (78.0-98.0); Platelet Count 195 thou/uL (130-400); RBC Distribution Width 15.5 % (11.5-14.5); Red Blood Cell (RBC) Count 6.12 mill/uL (4.70-6.10); White Blood Cell (WBC) Count 13.6 thou/uL (4.8-10.8)
[2021-02-07 04:54] LABS: Anion Gap 16 mmol/L (10-20); BUN (Urea Nitrogen) 57 mg/dL (8.4-25.7); Calc. Creatinine Clearance 142 mL/min (70-130); Calcium 9.6 mg/dL (7.8-10.44); Carbon Dioxide 26 mmol/L (22-29); Chloride 108 mmol/L (98-107); Glucose 185 mg/dL (70-105); Potassium 4.5 mmol/L (3.5-5.1); Sodium 145 mmol/L (136-145)
[2021-02-07] MEDS: HumaLOG 300 UNITS/3 ML VIAL SC PRN ×5 (05:32→21:45)
[2021-02-07] MEDS: Sodium Chloride 0.9% 1,000 ML IV SCH ×2 (08:10→08:54)
[2021-02-07] MEDS: Insulin Glargine 10 UNITS in Pre-Filled Syringe 1 EACH SC SCH (08:14)
[2021-02-07] MEDS: Aspirin Chewable 81 MG TAB PO SCH (08:15)
[2021-02-07] MEDS: Metoprolol Tartrate 25 MG TAB PO SCH ×2 (08:15→20:33)
[2021-02-07] MEDS: Heparin 5,000 UNITS/ML VIAL SC SCH ×3 (08:16→20:33)
[2021-02-07] MEDS: Pantoprazole 40 MG VIAL IVP SCH (08:16)
[2021-02-07] MEDS: Nystatin Powder 15 GM BOT TOP SCH ×2 (08:19→21:46)
[2021-02-07] MEDS ORDERED: Aspirin Chewable 81 MG TAB PER TUBE SCH (09:00)
[2021-02-07] MEDS ORDERED: DC Sedation Protocol FS ONE (09:00)
[2021-02-07 10:08] VITALS: BP 139/77
[2021-02-07] MEDS: cefTRIAXone\\ROCEPHIN 2 GM in Sodium Chloride 0.9% 100 ML IVPB SCH (10:09)
[2021-02-07] MEDS: Mometasone 200 MCG/Formoterol 5 MCG 120 PUFF INHALER INH SCH (19:16)
[2021-02-07] MEDS: Insulin Glargine 5 UNITS in Pre-Filled Syringe 1 EACH SC SCH (21:46)
[2021-02-08 06:50] LABS: #Basophils 0.1 thou/uL (0.0-0.2); #Neutrophils 10.9 thou/uL (1.40-6.50); %Basophils 0.7 % (0.0-1.0); %Eosinophils 0.3 % (0.0-10.0); %Lymphocytes 7.5 % (21.0-51.0); %Monocytes 7.8 % (0.0-10.0); %Neutrophils 83.7 % (42.0-75.0); Hemoglobin 18.3 g/dL (14.0-18.0); Mean Corpuscular Hemoglobin 29.8 pg (27.0-31.0); Mean Platelet Volume 9.7 fL (7.4-10.4); Platelet Count 177 thou/uL (130-400); RBC Distribution Width 15.4 % (11.5-14.5); Red Blood Cell (RBC) Count 6.16 mill/uL (4.70-6.10)
[2021-02-08 07:08] LABS: Anion Gap 15 mmol/L (10-20); BUN (Urea Nitrogen) 49 mg/dL (8.4-25.7); Calc. Creatinine Clearance 149 mL/min (70-130); Calcium 9.6 mg/dL (7.8-10.44); Carbon Dioxide 27 mmol/L (22-29); Chloride 108 mmol/L (98-107); Glucose 146 mg/dL (70-105); Potassium 4.3 mmol/L (3.5-5.1); Sodium 146 mmol/L (136-145)
[2021-02-08] MEDS: Mometasone 200 MCG/Formoterol 5 MCG 120 PUFF INHALER INH SCH ×2 (07:53→18:24)
[2021-02-08] MEDS ORDERED: predniSONE 20 MG TAB PO SCH ×2 (08:00→09:30)
[2021-02-08] MEDS: Pantoprazole 40 MG VIAL IVP SCH (09:20)
[2021-02-08] MEDS: Aspirin Chewable 81 MG TAB PO SCH (09:21)
[2021-02-08] MEDS: Nystatin Powder 15 GM BOT TOP SCH ×2 (09:21→20:48)
[2021-02-08] MEDS: Heparin 5,000 UNITS/ML VIAL SC SCH ×3 (09:21→20:45)
[2021-02-08] MEDS: Metoprolol Tartrate 25 MG TAB PO SCH ×2 (09:21→20:45)
[2021-02-08] MEDS: Insulin Glargine 10 UNITS in Pre-Filled Syringe 1 EACH SC SCH (09:21)
[2021-02-08] MEDS: cefTRIAXone\\ROCEPHIN 2 GM in Sodium Chloride 0.9% 100 ML IVPB SCH (10:16)
[2021-02-08] MEDS: Insulin Glargine 5 UNITS in Pre-Filled Syringe 1 EACH SC SCH (20:46)
[2021-02-08] MEDS ORDERED: Gabapentin 400 MG CAP PO SCH (21:00)
[2021-02-09] MEDS ORDERED: Zolpidem Tartrate 5 MG TAB PO SCH (00:30)
[2021-02-09] MEDS ORDERED: Hyoscyamine Sulfate SL 0.125 mg Tablet PO SCH (04:15)
[2021-02-09 04:39] LABS: Anion Gap 15 mmol/L (10-20); BUN (Urea Nitrogen) 40 mg/dL (8.4-25.7); Calc. Creatinine Clearance 153 mL/min (70-130); Calcium 9.3 mg/dL (7.8-10.44); Carbon Dioxide 26 mmol/L (22-29); Chloride 107 mmol/L (98-107); Glucose 139 mg/dL (70-105); Magnesium 2.1 mg/dL (1.6-2.6); Sodium 144 mmol/L (136-145)
[2021-02-09] MEDS ORDERED: Morphine 2 MG/ML VIAL SLOW IVP SCH (06:30)
[2021-02-09] MEDS: Mometasone 200 MCG/Formoterol 5 MCG 120 PUFF INHALER INH SCH (07:31)
[2021-02-09] MEDS ORDERED: predniSONE 20 MG TAB PO SCH (08:00)
[2021-02-09] MEDS: Heparin 5,000 UNITS/ML VIAL SC SCH ×2 (08:10→16:11)
[2021-02-09] MEDS: Metoprolol Tartrate 25 MG TAB PO SCH (08:10)
[2021-02-09] MEDS: Aspirin Chewable 81 MG TAB PO SCH ×2 (08:10→14:29)
[2021-02-09] MEDS: Nystatin Powder 15 GM BOT TOP SCH (08:11)
[2021-02-09] MEDS: Insulin Glargine 10 UNITS in Pre-Filled Syringe 1 EACH SC SCH (08:11)
[2021-02-09] MEDS: Pantoprazole 40 MG VIAL IVP SCH (08:11)
[2021-02-09] MEDS: cefTRIAXone\\ROCEPHIN 2 GM in Sodium Chloride 0.9% 100 ML IVPB SCH (08:11)
[2021-02-09] MEDS ORDERED: ROPINIROLE HCL 4 MG PO SCH (09:00)
[2021-02-09] MEDS ORDERED: Gabapentin 400 MG CAP PO SCH (09:00)
[2021-02-09 11:59] VITALS: TEMP 98.6
[2021-02-09] MEDS ORDERED: Hyoscyamine Sulfate 0.125 MG/5 ML UDCUP PO PRN (12:04)
[2021-02-09 12:46] VITALS: BMI 47.3
[2021-02-09] MEDS: Donnatal Elixir 16.2 MG/5 ML UDCUP PO SCH ×2 (13:30→17:32)
[2021-02-09] MEDS ORDERED: Cefdinir 300 MG CAP PO SCH (21:00)
[2021-02-10] MEDS ORDERED: Saccharomyces boulardii 250 MG CAP PO SCH (09:00)
== END 2021-02-09 17:42 | DRG 871 ==
LOC: ERS 15:37 → CCU 17:07 → IMCU/EMU 02-07 17:13
PROVIDERS: ADMIT Internal Medicine; ATTEND Family Medicine
PROC: 5A1945Z Respiratory Ventilation, 24-96 Consecutive Hours (ICD-10-PCS; principal; 2021-02-02)
PROC: 3E033XZ Introduction of Vasopressor into Peripheral Vein, Percutaneous Approach (ICD-10-PCS; 2021-02-02)
PROC: 0BH17EZ Insertion of Endotracheal Airway into Trachea, Via Natural or Artificial Opening (ICD-10-PCS; 2021-02-02)
PROC: 02HV33Z Insertion of Infusion Device into Superior Vena Cava, Percutaneous Approach (ICD-10-PCS; 2021-02-02)
PROC: 0D9670Z Drainage of Stomach with Drainage Device, Via Natural or Artificial Opening (ICD-10-PCS; 2021-02-02)
PROC: 5A09357 Assistance with Respiratory Ventilation, Less than 24 Consecutive Hours, Continuous Positive Airway Pressure (ICD-10-PCS; 2021-02-07)
DX: A41.01 Sepsis due to Methicillin susceptible Staphylococcus aureus (principal); J96.01 Acute respiratory failure with hypoxia; I50.33 Acute on chronic diastolic (congestive) heart failure; J44.1 Chronic obstructive pulmonary disease with (acute) exacerbation; Z68.42 Body mass index [BMI] 45.0-49.9, adult; N17.9 Acute kidney failure, unspecified; I24.8 Other forms of acute ischemic heart disease; E66.2 Morbid (severe) obesity with alveolar hypoventilation; R65.20 Severe sepsis without septic shock; Z20.822 Contact with and (suspected) exposure to COVID-19; N18.30 Chronic kidney disease, stage 3 unspecified; D63.1 Anemia in chronic kidney disease; E11.22 Type 2 diabetes mellitus with diabetic chronic kidney disease; E11.40 Type 2 diabetes mellitus with diabetic neuropathy, unspecified; E78.5 Hyperlipidemia, unspecified; I25.10 Atherosclerotic heart disease of native coronary artery without angina pectoris; Z96.653 Presence of artificial knee joint, bilateral; E11.51 Type 2 diabetes mellitus with diabetic peripheral angiopathy without gangrene; E87.5 Hyperkalemia; D75.1 Secondary polycythemia; H54.8 Legal blindness, as defined in USA; F41.9 Anxiety disorder, unspecified; Z78.1 Physical restraint status; Z86.73 Personal history of transient ischemic attack (TIA), and cerebral infarction without residual deficits; Z90.49 Acquired absence of other specified parts of digestive tract; Z95.1 Presence of aortocoronary bypass graft; Z95.5 Presence of coronary angioplasty implant and graft; Z82.49 Family history of ischemic heart disease and other diseases of the circulatory system; Z83.3 Family history of diabetes mellitus; Z79.899 Other long term (current) drug therapy; Z79.02 Long term (current) use of antithrombotics/antiplatelets; Z79.52 Long term (current) use of systemic steroids; Z79.4 Long term (current) use of insulin; Z90.89 Acquired absence of other organs; F17.210 Nicotine dependence, cigarettes, uncomplicated; R19.7 Diarrhea, unspecified
CPT/HCPCS: 0240U; 31500; 36415; 36416; 36556; 36600; 51702; 71045; 80048; 80053; 80202; 81003; 81015; 82550; 82553; 82805; 83605; 83690; 83735; 83880; 84100; 84484; 85025; 85610; 85730; 87040; 87077; 87149; 87186; 93005; 93306; 93970; 94002; 94003; 94640; 94660; 94664; 94760; 96365; 96366; 96372; 96374; 99292; C9113; J0360; J0692; J0696; J1644; J1650; J1815; J2060; J2270; J2920; J3010; J3370; J3490; J7512; J7620

== ENCOUNTER 2021-02-13 19:29 | Inpatient (IN) | payer MEDICARE, MEDICAID ==
[~2021-02-13 19:29] MED LIST changes: -ISOVUE-370 76%-LOCM 1 ML ONE; +Iopamidol-370 76% 500 ML 1 ML ONE
[2021-02-13] MEDS ORDERED: Norepinephrine 8 MG/0.9% NS 250 ML ONE (19:46)
[2021-02-13] MEDS ORDERED: Albuterol Sulfate 2.5 mg/3 ml Neb ONE (20:00)
[2021-02-13] MEDS ORDERED: fentaNYL Citrate/PF 2,000 MCG in Sodium Chloride 0.9% 60 ML IV SCH (20:15)
[2021-02-13 20:18] LABS: Hemoglobin 16.3 g/dL (14.0-18.0); Mean Corpuscular HGB CONC 31.1 g/dL (32.0-36.0); Mean Corpuscular Hemoglobin 30.7 pg (27.0-31.0); Mean Corpuscular Volume 98.7 fL (78.0-98.0); Mean Platelet Volume 10.4 fL (7.4-10.4); Platelet Count 183 thou/uL (130-400); RBC Distribution Width 15.3 % (11.5-14.5); Red Blood Cell (RBC) Count 5.31 mill/uL (4.70-6.10); White Blood Cell (WBC) Count 24.7 thou/uL (4.8-10.8)
[2021-02-13 20:28] LABS: Actual Bicarbonate (HCO3a) 22.6 mEq/L (22-28); Analyzer IN Cardio ER; Base Excess (BEa) -4.5 mEq/L (-2.0 to +3.0); CO2 Tension 48.8 mmHg (35.0-45.0); Carboxyhemoglobin (COHb) 1.4 gm% (0.0-3.0); Hemoglobin (Hb) 16.2 g/dL (14.0-18.0); O2 Tension (PaO2), arterial 123.9 mmHg (> 80.0); Potassium - ABG Lab 4.07 mmol/L (3.70-5.30); pH, Arterial 7.28 (7.35-7.45)
[2021-02-13 20:35] LABS: Puncture Site RBA
[2021-02-13 20:36] LABS: Band 20 % (5-11); Lymphocytes 1 % (21-51); MDiff Complete? YES; Macrocytosis SLIGHT = 6-15 cells (100X) (0-5/hpf); Monocytes 2 % (0-10); Neutrophil 77 % (42-75); Ovalocytes SLIGHT = 2-5 cells (100X) (0-1/hpf); Platelet Morphology Comment Appears Adequate; Polychromasia SLIGHT = 2-3 cells (100X) (0-2/hpf)
[2021-02-13 20:39] LABS: ALT (SGPT) 15 U/L (8-55); AST (SGOT) 18 U/L (5-34); Albumin 2.3 g/dL (3.4-4.8); Alkaline Phosphatase 83 U/L (40-110); Anion Gap 19 mmol/L (10-20); BUN (Urea Nitrogen) 60 mg/dL (8.4-25.7); Bilirubin, Total 1.2 mg/dL (0.2-1.2); Calc. Creatinine Clearance 0 mL/min (70-130); Calcium 7.9 mg/dL (7.8-10.44); Carbon Dioxide 23 mmol/L (23-31); Chloride 103 mmol/L (98-107); Globulin 2.5 g/dL (2.4-3.5); Glucose 248 mg/dL (80-115); Lipase 46 U/L (8-78); Potassium 5.5 mmol/L (3.5-5.1); Protein, Total 4.8 g/dL (5.8-8.1); Sodium 139 mmol/L (136-145)
[2021-02-13 20:46] LABS: Bacteria/HPF 3+ HPF (None Seen); Bilirubin Negative (Negative); Blood, Urine 2+ (Negative); Clarity Turbid (Clear); Glucose, Urine (Dipstick) Normal (Negative); Ketone, Urine Negative (Negative); Leukocyte 75 Leu/uL (Negative); Nitrite Negative (Negative); Protein, Urine (Dipstick) 300 mg/dL (Neg-Trace); Specific Gravity, Urine 1.018 (1.002-1.036); Urobilinogen Normal mg/dL (Less than 2); pH, Urine 5.5 (5.0-9.0)
[2021-02-13] MEDS ORDERED: Enoxaparin Sodium 80 MG/0.8 ML SYRINGE ONE (21:55)
[2021-02-13] MEDS ORDERED: Norepinephrine 8 MG/0.9% NS 250 ML IVPB PRN (21:55)
[2021-02-13] MEDS ORDERED: Ventilator Sedation Protocol 1 EACH FS SCH (22:00)
[2021-02-13] MEDS ORDERED: Fentanyl BOLUS 250 ML IVPB PRN (22:15)
[2021-02-13] MEDS ORDERED: Morphine 2 MG/ML VIAL SLOW IVP PRN (22:15)
[2021-02-13] MEDS ORDERED: DISCONTINUE PREVIOUS NARCOTIC PAIN MEDICATIONS AND BENZODIAZEPINES FS SCH (22:15)
[2021-02-13] MEDS ORDERED: Propofol BOLUS 1,000 MG/100 ML VIAL IV PRN (22:15)
[2021-02-13] MEDS ORDERED: Heparin 10,000 UNITS/ 10 ML VIAL SLOW IVP SCH (22:15)
[2021-02-13] MEDS ORDERED: Heparin 25,000 units/D5W 500 ML IVPB SCH (22:30)
[2021-02-13 23:00] LABS: Hemoglobin 17.2 g/dL (14.0-18.0); Platelet Count 176 thou/uL (130-400)
[2021-02-13 23:04] LABS: SARS-CoV-2 NAA Rapid Test Not Detected (NotDetected)
[2021-02-13] MEDS ORDERED: Vancomycin 1 GM/200 ML BAG ONE (23:26)
[2021-02-14 00:06] LABS: Lactic Acid 2.2 mmol/L (0.5-2.2)
[2021-02-14 00:07] LABS: Anion Gap 18 mmol/L (10-20); BUN (Urea Nitrogen) 57 mg/dL (8.4-25.7); Calc. Creatinine Clearance 0 mL/min (70-130); Calcium 7.9 mg/dL (7.8-10.44); Carbon Dioxide 20 mmol/L (23-31); Chloride 106 mmol/L (98-107); Glucose 275 mg/dL (80-115); Potassium 4.7 mmol/L (3.5-5.1); Sodium 139 mmol/L (136-145)
[2021-02-14] MEDS ORDERED: Dextrose 50% Abboject 50 ML SYRINGE IVP PRN (01:00)
[2021-02-14] MEDS ORDERED: Dextrose 5% in Water 1,000 ML IV PRN (01:00)
[2021-02-14] MEDS: HumaLOG 300 UNITS/3 ML VIAL SC PRN ×6 (01:12→20:11)
[2021-02-14] MEDS: Propofol 1,000 MG/100 ML VIAL IV PRN ×5 (04:42→21:47)
[2021-02-14 05:35] LABS: #Eosinphils 0.1 thou/uL (0.0-0.7); #Lymphocytes 1.4 thou/uL (1.20-3.40); #Monocytes 1.8 thou/uL (0.11-0.59); #Neutrophils 20.7 thou/uL (1.40-6.50); %Basophils 0.1 % (0.0-1.0); %Eosinophils 0.3 % (0.0-10.0); %Lymphocytes 5.7 % (21.0-51.0); %Monocytes 7.4 % (0.0-10.0); %Neutrophils 86.5 % (42.0-75.0); Hemoglobin 16.9 g/dL (14.0-18.0); Mean Corpuscular HGB CONC 32.4 g/dL (32.0-36.0); Mean Corpuscular Hemoglobin 31.2 pg (27.0-31.0); Mean Corpuscular Volume 96.2 fL (78.0-98.0); Mean Platelet Volume 10.2 fL (7.4-10.4); Platelet Count 181 thou/uL (130-400); RBC Distribution Width 15.2 % (11.5-14.5); Red Blood Cell (RBC) Count 5.41 mill/uL (4.70-6.10)
[2021-02-14 05:46] LABS: Anion Gap 15 mmol/L (10-20); BUN (Urea Nitrogen) 58 mg/dL (8.4-25.7); Calc. Creatinine Clearance 85 mL/min (70-130); Calcium 8.1 mg/dL (7.8-10.44); Carbon Dioxide 20 mmol/L (23-31); Chloride 107 mmol/L (98-107); Glucose 209 mg/dL (80-115); Potassium 4.3 mmol/L (3.5-5.1); Sodium 138 mmol/L (136-145)
[2021-02-14 05:52] LABS: Troponin I 0.131 ng/mL (< 0.028)
[2021-02-14 07:46] LABS: Actual Bicarbonate (HCO3a) 23.6 mEq/L (22-28); Base Excess (BEa) 0.2 mEq/L (-2.0 to +3.0); CO2 Tension 35.3 mmHg (35.0-45.0); Calcium, Ionized (arterial) 1.22 mmol/L (1.12-1.30); Carboxyhemoglobin (COHb) 0.6 gm% (0.0-3.0); Hemoglobin (Hb) 17.7 g/dL (14.0-18.0); O2 Tension (PaO2), arterial 72.6 mmHg (> 80.0); pH, Arterial 7.44 (7.35-7.45)
[2021-02-14 07:48] LABS: ALV-art Gradient 168.475 mmHg (0-20); Puncture Site RRA
[2021-02-14] MEDS: Enoxaparin Sodium 30 MG/0.3 ML SYRINGE SC SCH ×2 (08:17→20:12)
[2021-02-14] MEDS: Fentanyl CADD 100 ML IV SCH ×2 (08:17→22:50)
[2021-02-14] MEDS: Enoxaparin Sodium 120 MG/0.8 ML SYRINGE SC SCH ×2 (08:17→20:12)
[2021-02-14] MEDS ORDERED: Furosemide 40 MG/4 ML VIAL SLOW IVP SCH (09:00)
[2021-02-14] MEDS ORDERED: FLU VACC QS2020-21(65YR UP)/PF 240 MCG/0.7 ML SYRINGE IM ONE (09:00)
[2021-02-14] MEDS ORDERED: methylPREDNISolone Sod Succ 40 MG VIAL IVP SCH ×2 (09:00)
[2021-02-14] MEDS ORDERED: Enoxaparin Sodium 120 MG/0.8 ML SYRINGE SC SCH ×2 (09:00→21:00)
[2021-02-14] MEDS ORDERED: Enoxaparin Sodium 30 MG/0.3 ML SYRINGE SC SCH (09:00)
[2021-02-14 09:37] LABS: Troponin I 0.134 ng/mL (< 0.028)
[2021-02-14] MEDS ORDERED: Bacteriostatic Water 30 ML VIAL FS PRN (10:00)
[2021-02-14] MEDS ORDERED: Pantoprazole 40 MG VIAL IVP SCH (10:45)
[2021-02-14] MEDS ORDERED: Sodium Chloride 0.9% (PF) 10 ML VIAL FS PRN (10:45)
[2021-02-14] MEDS: Lorazepam 2 MG/ML VIAL SLOW IVP PRN (14:21)
[2021-02-14] MEDS: methylPREDNISolone Sod Succ 40 MG VIAL IVP SCH (16:10)
[2021-02-14] MEDS ORDERED: Furosemide 20 MG/2 ML VIAL SLOW IVP SCH (17:30)
[2021-02-14] MEDS ORDERED: Fentanyl CADD 100 ML ONE (22:45)
[2021-02-15] MEDS: HumaLOG 300 UNITS/3 ML VIAL SC PRN ×6 (00:08→21:29)
[2021-02-15] MEDS: methylPREDNISolone Sod Succ 40 MG VIAL IVP SCH ×4 (00:10→23:23)
[2021-02-15] MEDS: Propofol 1,000 MG/100 ML VIAL IV PRN ×6 (01:25→21:31)
[2021-02-15] MEDS: Lorazepam 2 MG/ML VIAL SLOW IVP PRN (01:40)
[2021-02-15 04:38] LABS: Hemoglobin 16.7 g/dL (14.0-18.0); Mean Corpuscular HGB CONC 30.9 g/dL (32.0-36.0); Mean Corpuscular Hemoglobin 29.4 pg (27.0-31.0); Mean Corpuscular Volume 95.2 fL (78.0-98.0); Platelet Count 134 thou/uL (130-400); RBC Distribution Width 15.3 % (11.5-14.5); Red Blood Cell (RBC) Count 5.66 mill/uL (4.70-6.10); White Blood Cell (WBC) Count 15.9 thou/uL (4.8-10.8)
[2021-02-15 04:39] LABS: INR-International Normal Ratio 1.2
[2021-02-15 04:48] LABS: Anion Gap 13 mmol/L (10-20); BUN (Urea Nitrogen) 58 mg/dL (8.4-25.7); Calc. Creatinine Clearance 96 mL/min (70-130); Calcium 8.9 mg/dL (7.8-10.44); Carbon Dioxide 26 mmol/L (23-31); Chloride 105 mmol/L (98-107); Glucose 241 mg/dL (80-115); Potassium 4.2 mmol/L (3.5-5.1); Sodium 140 mmol/L (136-145)
[2021-02-15 05:14] LABS: Band 4 % (5-11); Lymphocytes 2 % (21-51); MDiff Complete? YES; Monocytes 5 % (0-10); Neutrophil 89 % (42-75); Nucleated RBC 1 % (0)
[2021-02-15 07:46] LABS: Base Excess (BEa) 1.8 mEq/L (-2.0 to +3.0); CO2 Tension 35.6 mmHg (35.0-45.0); Calcium, Ionized (arterial) 1.25 mmol/L (1.12-1.30); Carboxyhemoglobin (COHb) 1.1 gm% (0.0-3.0); Hemoglobin (Hb) 16.7 g/dL (14.0-18.0); Potassium - ABG Lab 4.02 mmol/L (3.70-5.30); pH, Arterial 7.47 (7.35-7.45)
[2021-02-15 07:49] LABS: O2 Tension (PaO2), arterial 54.6 mmHg (> 80.0); Puncture Site RRA
[2021-02-15] MEDS: Enoxaparin Sodium 120 MG/0.8 ML SYRINGE SC SCH ×2 (08:44→21:33)
[2021-02-15] MEDS: Enoxaparin Sodium 30 MG/0.3 ML SYRINGE SC SCH ×2 (08:44→21:32)
[2021-02-15] MEDS ORDERED: Insulin Glargine 15 UNITS in Pre-Filled Syringe 1 EACH SC SCH (10:13)
[2021-02-15] MEDS: Pantoprazole 40 MG VIAL IVP SCH (11:16)
[2021-02-15] MEDS: Cefepime 1 GM in Sodium Chloride 0.9% 100 ML IVPB SCH ×2 (11:16→21:31)
[2021-02-15] MEDS: Lantus 1000 UNITS/10 ML VIAL SC SCH ×2 (11:17→21:31)
[2021-02-15] MEDS ORDERED: Fentanyl CADD 100 ML ONE (14:30)
[2021-02-15] MEDS ORDERED: Lantus 1000 UNITS/10 ML VIAL SC SCH (21:00)
[2021-02-16] MEDS: Propofol 1,000 MG/100 ML VIAL IV PRN ×4 (01:31→23:10)
[2021-02-16 04:21] LABS: Anion Gap 16 mmol/L (10-20); BUN (Urea Nitrogen) 70 mg/dL (8.4-25.7); Calc. Creatinine Clearance 91 mL/min (70-130); Calcium 9.4 mg/dL (7.8-10.44); Carbon Dioxide 26 mmol/L (23-31); Chloride 104 mmol/L (98-107); Glucose 270 mg/dL (80-115); Potassium 4.9 mmol/L (3.5-5.1); Sodium 141 mmol/L (136-145)
[2021-02-16 04:29] LABS: Band 1 % (5-11); Hemoglobin 16.3 g/dL (14.0-18.0); MDiff Complete? YES; Mean Corpuscular HGB CONC 30.8 g/dL (32.0-36.0); Mean Corpuscular Volume 97.4 fL (78.0-98.0); Mean Platelet Volume 10.9 fL (7.4-10.4); Neutrophil 99 % (42-75); Platelet Count 142 thou/uL (130-400); Platelet Morphology Comment Appears Adequate; RBC Distribution Width 15.5 % (11.5-14.5); RBC Morphology Normal; Red Blood Cell (RBC) Count 5.41 mill/uL (4.70-6.10); White Blood Cell (WBC) Count 21.3 thou/uL (4.8-10.8)
[2021-02-16 08:04] LABS: Actual Bicarbonate (HCO3a) 26.6 mEq/L (22-28); Base Excess (BEa) -2.2 mEq/L (-2.0 to +3.0); Calcium, Ionized (arterial) 1.31 mmol/L (1.12-1.30); Carboxyhemoglobin (COHb) 1.3 gm% (0.0-3.0); Hemoglobin (Hb) 17.1 g/dL (14.0-18.0); O2 Tension (PaO2), arterial 67.7 mmHg (> 80.0); Potassium - ABG Lab 4.93 mmol/L (3.70-5.30)
[2021-02-16 08:07] LABS: pH, Arterial 7.25 (7.35-7.45)
[2021-02-16 08:08] LABS: CO2 Tension 61.5 mmHg (35.0-45.0); Puncture Site RRA
[2021-02-16 08:09] LABS: ALV-art Gradient 104.975 mmHg (0-20)
[2021-02-16] MEDS: HumaLOG 300 UNITS/3 ML VIAL SC PRN ×4 (08:13→21:58)
[2021-02-16] MEDS: Lantus 1000 UNITS/10 ML VIAL SC SCH ×2 (08:13→21:58)
[2021-02-16] MEDS: methylPREDNISolone Sod Succ 40 MG VIAL IVP SCH ×3 (08:14→23:11)
[2021-02-16] MEDS: Pantoprazole 40 MG VIAL IVP SCH (08:14)
[2021-02-16] MEDS: Enoxaparin Sodium 30 MG/0.3 ML SYRINGE SC SCH (08:16)
[2021-02-16] MEDS: Enoxaparin Sodium 120 MG/0.8 ML SYRINGE SC SCH (08:17)
[2021-02-16] MEDS ORDERED: Clopidogrel Bisulfate 75 MG TAB PO SCH (09:00)
[2021-02-16] MEDS: Sodium Chloride 0.9% 1,000 ML IV SCH ×2 (10:59→12:23)
[2021-02-16] MEDS: Cefepime 1 GM in Sodium Chloride 0.9% 100 ML IVPB SCH ×2 (10:59→21:57)
[2021-02-16] MEDS ORDERED: Furosemide 40 MG/4 ML VIAL SLOW IVP SCH (16:45)
[2021-02-16] MEDS: Apixaban 5 MG TAB PO SCH (20:15)
[2021-02-17] MEDS: Propofol 1,000 MG/100 ML VIAL IV PRN (02:33)
[2021-02-17] MEDS: HumaLOG 300 UNITS/3 ML VIAL SC PRN ×5 (03:14→20:06)
[2021-02-17 04:31] LABS: #Lymphocytes 0.2 thou/uL (1.20-3.40); #Monocytes 0.4 thou/uL (0.11-0.59); #Neutrophils 15.6 thou/uL (1.40-6.50); %Basophils 0.1 % (0.0-1.0); %Eosinophils 0.1 % (0.0-10.0); %Lymphocytes 1.1 % (21.0-51.0); %Monocytes 2.2 % (0.0-10.0); %Neutrophils 96.5 % (42.0-75.0); Hemoglobin 16.1 g/dL (14.0-18.0); Mean Corpuscular HGB CONC 33.3 g/dL (32.0-36.0); Mean Corpuscular Hemoglobin 32.5 pg (27.0-31.0); Mean Corpuscular Volume 97.4 fL (78.0-98.0); Mean Platelet Volume 11.1 fL (7.4-10.4); Platelet Count 122 thou/uL (130-400); RBC Distribution Width 15.2 % (11.5-14.5); Red Blood Cell (RBC) Count 4.97 mill/uL (4.70-6.10); White Blood Cell (WBC) Count 16.2 thou/uL (4.8-10.8)
[2021-02-17 04:43] LABS: Anion Gap 13 mmol/L (10-20); BUN (Urea Nitrogen) 77 mg/dL (8.4-25.7); Calc. Creatinine Clearance 108 mL/min (70-130); Calcium 9.1 mg/dL (7.8-10.44); Carbon Dioxide 29 mmol/L (23-31); Chloride 106 mmol/L (98-107); Glucose 316 mg/dL (80-115); Potassium 4.8 mmol/L (3.5-5.1); Sodium 143 mmol/L (136-145)
[2021-02-17 04:53] LABS: Lymphocytes 1 % (21-51); MDiff Complete? YES; Monocytes 2 % (0-10); Neutrophil 97 % (42-75); Platelet Morphology Comment Appears Decreased
[2021-02-17 07:52] LABS: Actual Bicarbonate (HCO3a) 27.1 mEq/L (22-28); Base Excess (BEa) 0.8 mEq/L (-2.0 to +3.0); CO2 Tension 49.5 mmHg (35.0-45.0); Hemoglobin (Hb) 16.5 g/dL (14.0-18.0); O2 Tension (PaO2), arterial 67.2 mmHg (> 80.0); Potassium - ABG Lab 4.66 mmol/L (3.70-5.30); pH, Arterial 7.36 (7.35-7.45)
[2021-02-17 07:53] LABS: Puncture Site RBA
[2021-02-17 07:54] LABS: ALV-art Gradient 120.475 mmHg (0-20)
[2021-02-17] MEDS: Lantus 1000 UNITS/10 ML VIAL SC SCH ×2 (08:22→20:07)
[2021-02-17] MEDS: Apixaban 5 MG TAB PO SCH ×2 (08:22→20:05)
[2021-02-17] MEDS: methylPREDNISolone Sod Succ 40 MG VIAL IVP SCH ×3 (08:23→23:28)
[2021-02-17] MEDS: Pantoprazole 40 MG VIAL IVP SCH (08:23)
[2021-02-17] MEDS ORDERED: Insulin Glargine 25 UNITS in Pre-Filled Syringe 1 EACH SC SCH (09:00)
[2021-02-17] MEDS: Sodium Chloride 0.9% 1,000 ML IV SCH ×2 (09:17)
[2021-02-17] MEDS ORDERED: Furosemide 40 MG/4 ML VIAL SLOW IVP SCH (09:45)
[2021-02-17] MEDS: Cefepime 1 GM in Sodium Chloride 0.9% 100 ML IVPB SCH ×2 (10:00→21:57)
[2021-02-17] MEDS ORDERED: DC Sedation Protocol FS ONE (10:24)
[2021-02-17] MEDS ORDERED: hydrALAZINE 20 MG/ML VIAL SLOW IVP PRN (19:36)
[2021-02-18 04:12] LABS: Anion Gap 11 mmol/L (10-20); BUN (Urea Nitrogen) 62 mg/dL (8.4-25.7); Calc. Creatinine Clearance 154 mL/min (70-130); Calcium 9.4 mg/dL (7.8-10.44); Carbon Dioxide 32 mmol/L (23-31); Chloride 106 mmol/L (98-107); Glucose 258 mg/dL (80-115); Potassium 4.4 mmol/L (3.5-5.1); Sodium 145 mmol/L (136-145)
[2021-02-18 04:16] LABS: Band 3 % (5-11); Hemoglobin 15.9 g/dL (14.0-18.0); MDiff Complete? YES; Mean Corpuscular HGB CONC 32.3 g/dL (32.0-36.0); Mean Corpuscular Hemoglobin 30.9 pg (27.0-31.0); Mean Corpuscular Volume 95.8 fL (78.0-98.0); Mean Platelet Volume 11.1 fL (7.4-10.4); Neutrophil 97 % (42-75); Platelet Count 110 thou/uL (130-400); Platelet Morphology Comment Appears Decreased; RBC Distribution Width 15.1 % (11.5-14.5); RBC Morphology Normal; Red Blood Cell (RBC) Count 5.12 mill/uL (4.70-6.10); White Blood Cell (WBC) Count 15.3 thou/uL (4.8-10.8)
[2021-02-18] MEDS: Sodium Chloride 0.9% 1,000 ML IV SCH ×2 (07:18)
[2021-02-18] MEDS: Furosemide 40 MG TAB PO SCH ×2 (08:06→14:47)
[2021-02-18] MEDS: Apixaban 5 MG TAB PO SCH ×2 (08:06→22:35)
[2021-02-18] MEDS: Lantus 1000 UNITS/10 ML VIAL SC SCH ×2 (08:07→22:35)
[2021-02-18] MEDS: methylPREDNISolone Sod Succ 40 MG VIAL IVP SCH (08:07)
[2021-02-18] MEDS: HumaLOG 300 UNITS/3 ML VIAL SC PRN ×3 (08:07→17:41)
[2021-02-18] MEDS: Pantoprazole 40 MG VIAL IVP SCH (08:07)
[2021-02-18] MEDS: Cefepime 1 GM in Sodium Chloride 0.9% 100 ML IVPB SCH ×2 (11:48→22:35)
[2021-02-19 05:03] LABS: Anion Gap 13 mmol/L (10-20); BUN (Urea Nitrogen) 50 mg/dL (8.4-25.7); Calc. Creatinine Clearance 163 mL/min (70-130); Carbon Dioxide 31 mmol/L (23-31); Chloride 101 mmol/L (98-107); Glucose 173 mg/dL (80-115); Potassium 4.2 mmol/L (3.5-5.1); Sodium 141 mmol/L (136-145)
[2021-02-19] MEDS: Apixaban 5 MG TAB PO SCH ×2 (07:56→21:42)
[2021-02-19] MEDS: Lantus 1000 UNITS/10 ML VIAL SC SCH ×2 (07:56→21:43)
[2021-02-19] MEDS: predniSONE 20 MG TAB PO SCH (07:57)
[2021-02-19] MEDS: Furosemide 40 MG TAB PO SCH ×2 (07:57→14:11)
[2021-02-19] MEDS: HumaLOG 300 UNITS/3 ML VIAL SC PRN ×2 (11:07→17:19)
[2021-02-19] MEDS: traMADol HCl 50 MG TAB PO PRN (23:35)
[2021-02-20 05:07] LABS: Anion Gap 12 mmol/L (10-20); BUN (Urea Nitrogen) 44 mg/dL (8.4-25.7); Calc. Creatinine Clearance 189 mL/min (70-130); Calcium 8.7 mg/dL (7.8-10.44); Carbon Dioxide 34 mmol/L (23-31); Chloride 95 mmol/L (98-107); Glucose 171 mg/dL (80-115); Sodium 137 mmol/L (136-145)
[2021-02-20] MEDS: traMADol HCl 50 MG TAB PO PRN (05:40)
[2021-02-20] MEDS: Apixaban 5 MG TAB PO SCH ×2 (08:20→20:16)
[2021-02-20] MEDS: predniSONE 20 MG TAB PO SCH ×2 (08:21→12:34)
[2021-02-20] MEDS: Furosemide 40 MG TAB PO SCH (08:21)
[2021-02-20] MEDS: Lantus 1000 UNITS/10 ML VIAL SC SCH ×2 (08:25→20:16)
[2021-02-20] MEDS: HumaLOG 300 UNITS/3 ML VIAL SC PRN ×2 (11:54→17:00)
[2021-02-20] MEDS: rOPINIRole HCl 0.5 MG TAB PO SCH (20:15)
[2021-02-20] MEDS: Gabapentin 300 MG CAP PO SCH (20:16)
[2021-02-21] MEDS ORDERED: Lorazepam 0.5 MG TAB PO SCH (00:45)
[2021-02-21 05:48] LABS: Anion Gap 14 mmol/L (10-20); BUN (Urea Nitrogen) 35 mg/dL (8.4-25.7); Calc. Creatinine Clearance 205 mL/min (70-130); Calcium 8.7 mg/dL (7.8-10.44); Carbon Dioxide 33 mmol/L (23-31); Chloride 94 mmol/L (98-107); Glucose 91 mg/dL (80-115); Potassium 3.6 mmol/L (3.5-5.1); Sodium 137 mmol/L (136-145)
[2021-02-21] MEDS: Furosemide 40 MG TAB PO SCH (13:24)
[2021-02-21] MEDS: Apixaban 5 MG TAB PO SCH ×2 (13:24→23:21)
[2021-02-21] MEDS: Gabapentin 300 MG CAP PO SCH ×2 (13:24→23:23)
[2021-02-21] MEDS: Lantus 1000 UNITS/10 ML VIAL SC SCH ×2 (13:25→23:21)
[2021-02-21] MEDS: Metoprolol Tartrate 25 MG TAB PO SCH (13:25)
[2021-02-21] MEDS: predniSONE 20 MG TAB PO SCH (13:26)
[2021-02-21] MEDS: rOPINIRole HCl 0.5 MG TAB PO SCH ×3 (13:26→23:22)
[2021-02-21] MEDS: Ketorolac Tromethamine 30 MG/ML VIAL IVP PRN (20:38)
[2021-02-22] MEDS: Ketorolac Tromethamine 30 MG/ML VIAL IVP PRN ×4 (02:36→22:20)
[2021-02-22 04:52] LABS: #Basophils 0.1 thou/uL (0.0-0.2); #Eosinphils 0.3 thou/uL (0.0-0.7); #Lymphocytes 1.3 thou/uL (1.20-3.40); #Monocytes 0.8 thou/uL (0.11-0.59); #Neutrophils 10.9 thou/uL (1.40-6.50); %Basophils 0.4 % (0.0-1.0); %Eosinophils 2.2 % (0.0-10.0); %Lymphocytes 9.7 % (21.0-51.0); %Monocytes 5.9 % (0.0-10.0); %Neutrophils 81.8 % (42.0-75.0); Hemoglobin 15.7 g/dL (14.0-18.0); Mean Corpuscular HGB CONC 32.1 g/dL (32.0-36.0); Mean Corpuscular Hemoglobin 30.4 pg (27.0-31.0); Mean Corpuscular Volume 94.7 fL (78.0-98.0); Mean Platelet Volume 10.5 fL (7.4-10.4); Platelet Count 158 thou/uL (130-400); RBC Distribution Width 14.6 % (11.5-14.5); Red Blood Cell (RBC) Count 5.15 mill/uL (4.70-6.10); White Blood Cell (WBC) Count 13.3 thou/uL (4.8-10.8)
[2021-02-22 05:16] LABS: ALT (SGPT) 22 U/L (8-55); AST (SGOT) 19 U/L (5-34); Albumin 2.8 g/dL (3.4-4.8); Alkaline Phosphatase 96 U/L (40-110); Anion Gap 15 mmol/L (10-20); BUN (Urea Nitrogen) 34 mg/dL (8.4-25.7); Bilirubin, Total 1.7 mg/dL (0.2-1.2); Calc. Creatinine Clearance 193 mL/min (70-130); Calcium 8.2 mg/dL (7.8-10.44); Carbon Dioxide 32 mmol/L (23-31); Chloride 91 mmol/L (98-107); Globulin 3.2 g/dL (2.4-3.5); Glucose 148 mg/dL (80-115); Potassium 3.5 mmol/L (3.5-5.1); Sodium 134 mmol/L (136-145)
[2021-02-22] MEDS: rOPINIRole HCl 0.5 MG TAB PO SCH ×3 (08:48→21:50)
[2021-02-22] MEDS: Gabapentin 300 MG CAP PO SCH ×2 (08:48→21:50)
[2021-02-22] MEDS: Apixaban 5 MG TAB PO SCH ×2 (08:48→21:50)
[2021-02-22] MEDS: Metoprolol Tartrate 25 MG TAB PO SCH (08:51)
[2021-02-22] MEDS: predniSONE 5 MG TAB PO SCH (08:51)
[2021-02-22 11:40] VITALS: BMI 47.6
[2021-02-22] MEDS: Bisacodyl 10 MG SUPP PR SCH ×2 (11:54→12:11)
[2021-02-22] MEDS: HumaLOG 300 UNITS/3 ML VIAL SC PRN (11:55)
[2021-02-23] MEDS: Bisacodyl 10 MG SUPP PR SCH ×4 (00:49→21:24)
[2021-02-23] MEDS: Ketorolac Tromethamine 30 MG/ML VIAL IVP PRN ×2 (07:12→16:55)
[2021-02-23 07:50] LABS: Anion Gap 12 mmol/L (10-20); BUN (Urea Nitrogen) 32 mg/dL (8.4-25.7); Calc. Creatinine Clearance 190 mL/min (70-130); Calcium 8.2 mg/dL (7.8-10.44); Carbon Dioxide 34 mmol/L (23-31); Chloride 92 mmol/L (98-107); Glucose 159 mg/dL (80-115); Potassium 3.5 mmol/L (3.5-5.1); Sodium 134 mmol/L (136-145)
[2021-02-23 07:51] LABS: Phosphorus 2.7 mg/dL (2.3-4.7)
[2021-02-23 07:57] LABS: Hemoglobin 15.4 g/dL (14.0-18.0)
[2021-02-23] MEDS: Gabapentin 300 MG CAP PO SCH ×2 (10:27→21:11)
[2021-02-23] MEDS: Apixaban 5 MG TAB PO SCH ×2 (10:27→21:10)
[2021-02-23] MEDS: predniSONE 5 MG TAB PO SCH (10:27)
[2021-02-23] MEDS: rOPINIRole HCl 0.5 MG TAB PO SCH ×3 (10:28→21:10)
[2021-02-23] MEDS: Metoprolol Tartrate 25 MG TAB PO SCH (10:28)
[2021-02-23] MEDS ORDERED: Sodium Chloride 0.9% 1,000 ML IV SCH (18:00)
[2021-02-23] MEDS: Sodium Chloride 0.9% 1,000 ML IV SCH (18:35)
[2021-02-23] MEDS: traMADol HCl 50 MG TAB PO PRN (21:11)
[2021-02-24] MEDS: Ketorolac Tromethamine 30 MG/ML VIAL IVP PRN (00:54)
[2021-02-24] MEDS: Bisacodyl 10 MG SUPP PR SCH ×3 (04:22→20:38)
[2021-02-24 06:39] LABS: #Eosinphils 0.2 thou/uL (0.0-0.7); #Lymphocytes 0.9 thou/uL (1.20-3.40); #Monocytes 0.7 thou/uL (0.11-0.59); #Neutrophils 7.8 thou/uL (1.40-6.50); %Basophils 0.5 % (0.0-1.0); %Eosinophils 1.6 % (0.0-10.0); %Lymphocytes 9.3 % (21.0-51.0); %Neutrophils 81.6 % (42.0-75.0); Hemoglobin 15.4 g/dL (14.0-18.0); Mean Corpuscular HGB CONC 32.6 g/dL (32.0-36.0); Mean Corpuscular Hemoglobin 30.7 pg (27.0-31.0); Mean Corpuscular Volume 94.2 fL (78.0-98.0); Mean Platelet Volume 9.9 fL (7.4-10.4); Platelet Count 192 thou/uL (130-400); RBC Distribution Width 14.6 % (11.5-14.5); Red Blood Cell (RBC) Count 5.01 mill/uL (4.70-6.10); White Blood Cell (WBC) Count 9.5 thou/uL (4.8-10.8)
[2021-02-24 07:03] LABS: Anion Gap 15 mmol/L (10-20); BUN (Urea Nitrogen) 27 mg/dL (8.4-25.7); Calc. Creatinine Clearance 200 mL/min (70-130); Calcium 8.2 mg/dL (7.8-10.44); Carbon Dioxide 30 mmol/L (23-31); Chloride 95 mmol/L (98-107); Glucose 135 mg/dL (80-115); Potassium 3.7 mmol/L (3.5-5.1); Sodium 136 mmol/L (136-145)
[2021-02-24 07:07] LABS: ALT (SGPT) 19 U/L (8-55); AST (SGOT) 18 U/L (5-34); Albumin 2.7 g/dL (3.4-4.8); Alkaline Phosphatase 115 U/L (40-110); Bilirubin, Direct 2.1 mg/dL (0.1-0.3); Protein, Total 5.9 g/dL (5.8-8.1)
[2021-02-24] MEDS: Sodium Chloride 0.9% 1,000 ML IV SCH ×2 (08:06→20:35)
[2021-02-24] MEDS: traMADol HCl 50 MG TAB PO PRN ×2 (08:06→20:26)
[2021-02-24] MEDS: Metoprolol Tartrate 25 MG TAB PO SCH (10:41)
[2021-02-24] MEDS: Apixaban 5 MG TAB PO SCH ×2 (10:41→20:26)
[2021-02-24] MEDS: rOPINIRole HCl 0.5 MG TAB PO SCH ×3 (10:41→20:26)
[2021-02-24] MEDS: Gabapentin 300 MG CAP PO SCH ×2 (10:41→20:26)
[2021-02-24] MEDS: predniSONE 5 MG TAB PO SCH (10:41)
[2021-02-25] MEDS: Bisacodyl 10 MG SUPP PR SCH ×2 (04:39→12:14)
[2021-02-25] MEDS: Ketorolac Tromethamine 30 MG/ML VIAL IVP PRN ×2 (04:53→21:47)
[2021-02-25] MEDS: HumaLOG 300 UNITS/3 ML VIAL SC PRN ×2 (04:54→21:49)
[2021-02-25 07:52] LABS: Hemoglobin 15.4 g/dL (14.0-18.0); Platelet Count 268 thou/uL (130-400)
[2021-02-25 08:18] LABS: Anion Gap 13 mmol/L (10-20); BUN (Urea Nitrogen) 27 mg/dL (8.4-25.7); Calc. Creatinine Clearance 186 mL/min (70-130); Calcium 8.6 mg/dL (7.8-10.44); Carbon Dioxide 35 mmol/L (23-31); Chloride 95 mmol/L (98-107); Glucose 173 mg/dL (80-115); Potassium 3.8 mmol/L (3.5-5.1); Sodium 139 mmol/L (136-145)
[2021-02-25] MEDS: traMADol HCl 50 MG TAB PO PRN (09:17)
[2021-02-25] MEDS: Gabapentin 300 MG CAP PO SCH ×2 (09:18→21:47)
[2021-02-25] MEDS: rOPINIRole HCl 0.5 MG TAB PO SCH ×3 (09:18→21:46)
[2021-02-25] MEDS: predniSONE 5 MG TAB PO SCH (09:19)
[2021-02-25] MEDS: Metoprolol Tartrate 25 MG TAB PO SCH (09:19)
[2021-02-25] MEDS: Sodium Chloride 0.9% 1,000 ML IV SCH ×2 (09:19→12:14)
[2021-02-25] MEDS: Apixaban 5 MG TAB PO SCH ×2 (09:19→21:46)
[2021-02-25] MEDS ORDERED: Vancomycin HCl 25 MG/ML Oral PO SCH ×2 (12:45)
[2021-02-25] MEDS ORDERED: Lactated Ringer's 1,000 ML IV SCH (13:15)
[2021-02-25] MEDS: metroNIDAZOLE 500 MG in Premix Bag 1 BAG IVPB SCH ×2 (14:32→21:49)
[2021-02-25 15:05] LABS: Band 77 % (5-11); Hemoglobin 15.6 g/dL (14.0-18.0); Lymphocytes 3 % (21-51); MDiff Complete? YES; Mean Corpuscular Hemoglobin 31.2 pg (27.0-31.0); Mean Corpuscular Volume 94.5 fL (78.0-98.0); Mean Platelet Volume 8.8 fL (7.4-10.4); Metamyelocyte 6 % (0-0); Monocytes 3 % (0-10); Neutrophil 7 % (42-75); Platelet Count 272 thou/uL (130-400); Platelet Morphology Comment Appears Adequate; Polychromasia SLIGHT = 2-3 cells (100X) (0-2/hpf); RBC Distribution Width 14.7 % (11.5-14.5); Reactive Lymphocytes 4 % (0-10); Red Blood Cell (RBC) Count 5.01 mill/uL (4.70-6.10)
[2021-02-25] MEDS: Vancomycin HCl 25 MG/ML Oral PO SCH (18:40)
[2021-02-25] MEDS: Vancomycin HCl 500 MG, Sodium Chloride 0.9% 100 ML PR SCH (18:40)
[2021-02-25] MEDS: Lactated Ringer's 1,000 ML IV SCH (19:15)
[2021-02-25 19:42] VITALS: TEMP 97.8
[2021-02-25] MEDS ORDERED: Rifaximin 550 MG TAB PO SCH (21:00)
[2021-02-26] MEDS: traMADol HCl 50 MG TAB PO PRN (00:52)
[2021-02-26] MEDS: Vancomycin HCl 25 MG/ML Oral PO SCH ×2 (00:58→05:24)
[2021-02-26] MEDS: Vancomycin HCl 500 MG, Sodium Chloride 0.9% 100 ML PR SCH ×2 (01:20→06:05)
[2021-02-26] MEDS: Lactated Ringer's 1,000 ML IV SCH ×2 (02:15→11:50)
[2021-02-26] MEDS: Ketorolac Tromethamine 30 MG/ML VIAL IVP PRN (05:23)
[2021-02-26] MEDS: metroNIDAZOLE 500 MG in Premix Bag 1 BAG IVPB SCH (05:23)
[2021-02-26] MEDS: HumaLOG 300 UNITS/3 ML VIAL SC PRN (05:37)
[2021-02-26 06:31] LABS: Hemoglobin 14.6 g/dL (14.0-18.0); Mean Corpuscular HGB CONC 32.2 g/dL (32.0-36.0); Mean Corpuscular Hemoglobin 30.3 pg (27.0-31.0); Mean Corpuscular Volume 94.1 fL (78.0-98.0); Platelet Count 289 thou/uL (130-400); RBC Distribution Width 14.7 % (11.5-14.5); Red Blood Cell (RBC) Count 4.83 mill/uL (4.70-6.10); White Blood Cell (WBC) Count 13.6 thou/uL (4.8-10.8)
[2021-02-26 06:35] LABS: Anion Gap 14 mmol/L (10-20); BUN (Urea Nitrogen) 48 mg/dL (8.4-25.7); Calc. Creatinine Clearance 126 mL/min (70-130); Calcium 8.4 mg/dL (7.8-10.44); Carbon Dioxide 35 mmol/L (23-31); Chloride 93 mmol/L (98-107); Glucose 183 mg/dL (80-115); Potassium 4.1 mmol/L (3.5-5.1); Sodium 138 mmol/L (136-145)
[2021-02-26 07:59] LABS: Band 48 % (5-11); Lymphocytes 8 % (21-51); MDiff Complete? YES; Monocytes 5 % (0-10); Myelocyte 2 % (0-0); Neutrophil 37 % (42-75); Platelet Morphology Comment Appears Adequate; Polychromasia SLIGHT = 2-3 cells (100X) (0-2/hpf)
[2021-02-26] MEDS ORDERED: Morphine 4 MG/ML VIAL ONE (09:29)
[2021-02-26 10:41] VITALS: BP 131/76
[2021-02-26] MEDS: Apixaban 5 MG TAB PO SCH (11:35)
[2021-02-26] MEDS: Gabapentin 300 MG CAP PO SCH (11:35)
[2021-02-26] MEDS: Metoprolol Tartrate 25 MG TAB PO SCH (11:36)
[2021-02-26] MEDS: rOPINIRole HCl 0.5 MG TAB PO SCH (11:49)
== END 2021-02-26 09:40 | disposition expired | DRG 208 ==
LOC: ERS 19:29 → CCU 21:35 → 2NO 02-18 15:27 → T4-B 02-22 20:50
PROVIDERS: ADMIT Student in an Organized Health Care Education/Training Program; ATTEND Internal Medicine
PROC: 5A1945Z Respiratory Ventilation, 24-96 Consecutive Hours (ICD-10-PCS; 2021-02-13)
PROC: 3E033XZ Introduction of Vasopressor into Peripheral Vein, Percutaneous Approach (ICD-10-PCS; 2021-02-13)
PROC: 02HV33Z Insertion of Infusion Device into Superior Vena Cava, Percutaneous Approach (ICD-10-PCS; principal; 2021-02-14)
PROC: B548ZZA Ultrasonography of Superior Vena Cava, Guidance (ICD-10-PCS; 2021-02-14)
PROC: 0D9670Z Drainage of Stomach with Drainage Device, Via Natural or Artificial Opening (ICD-10-PCS; 2021-02-21)
DX: I26.99 Other pulmonary embolism without acute cor pulmonale (principal); A41.9 Sepsis, unspecified organism; G93.41 Metabolic encephalopathy; R65.21 Severe sepsis with septic shock; N17.0 Acute kidney failure with tubular necrosis; I50.43 Acute on chronic combined systolic (congestive) and diastolic (congestive) heart failure; J96.21 Acute and chronic respiratory failure with hypoxia; J69.0 Pneumonitis due to inhalation of food and vomit; I21.A1 Myocardial infarction type 2; I13.0 Hypertensive heart and chronic kidney disease with heart failure and stage 1 through stage 4 chronic kidney disease, or unspecified chronic kidney disease; J44.1 Chronic obstructive pulmonary disease with (acute) exacerbation; A04.72 Enterocolitis due to Clostridium difficile, not specified as recurrent; K56.7 Ileus, unspecified; I47.1 Supraventricular tachycardia; E87.1 Hypo-osmolality and hyponatremia; Z68.42 Body mass index [BMI] 45.0-49.9, adult; Z51.5 Encounter for palliative care; Z66 Do not resuscitate; Z20.822 Contact with and (suspected) exposure to COVID-19; E11.22 Type 2 diabetes mellitus with diabetic chronic kidney disease; E11.40 Type 2 diabetes mellitus with diabetic neuropathy, unspecified; H54.7 Unspecified visual loss; E66.01 Morbid (severe) obesity due to excess calories; F17.210 Nicotine dependence, cigarettes, uncomplicated; G25.81 Restless legs syndrome; G47.00 Insomnia, unspecified; K21.9 Gastro-esophageal reflux disease without esophagitis; N18.30 Chronic kidney disease, stage 3 unspecified; Z96.653 Presence of artificial knee joint, bilateral; I25.10 Atherosclerotic heart disease of native coronary artery without angina pectoris; E78.5 Hyperlipidemia, unspecified; E11.65 Type 2 diabetes mellitus with hyperglycemia; D63.1 Anemia in chronic kidney disease; K59.81 Ogilvie syndrome; G47.33 Obstructive sleep apnea (adult) (pediatric); Z53.29 Procedure and treatment not carried out because of patient's decision for other reasons; Z79.01 Long term (current) use of anticoagulants; Z79.82 Long term (current) use of aspirin; Z79.899 Other long term (current) drug therapy; I25.2 Old myocardial infarction; Z86.73 Personal history of transient ischemic attack (TIA), and cerebral infarction without residual deficits; Z88.1 Allergy status to other antibiotic agents; Z88.0 Allergy status to penicillin; Z88.2 Allergy status to sulfonamides; Z91.018 Allergy to other foods; Z90.49 Acquired absence of other specified parts of digestive tract; Z95.1 Presence of aortocoronary bypass graft; Z95.5 Presence of coronary angioplasty implant and graft; Z91.14 Patient's other noncompliance with medication regimen; Z28.21 Immunization not carried out because of patient refusal
CPT/HCPCS: 36415; 36416; 36600; 71045; 71275; 74018; 74176; 80048; 80053; 80076; 82805; 83605; 83690; 83735; 83880; 84100; 84484; 85014; 85018; 85025; 85049; 85610; 85730; 87086; 87149; 87324; 87449; 87493; 93005; 93306; 94002; 94003; 94640; 94760; 96361; 96365; 96366; 96368; 96372; 96375; 99292; C9113; J0360; J0692; J1644; J1650; J1815; J1885; J1940; J1956; J2060; J2704; J2920; J3010; J3370; J3490; J7512; J7611; J7620; Q9967; U0002